=== PATIENT | female | born 1970 | race Caucasian/White ===

== ENCOUNTER 2019-11-09 01:02 | Outpatient (CLI) | payer BC, SELFPAY ==
[2019-11-09 18:02] LABS: SARS-CoV-2 RNA PCR Negative
== END 2019-11-09 01:03 | disposition home or self-care (01) ==
LOC: ANHCOVIDDT 01:02
PROVIDERS: PCP Family Medicine; Visit Provider Internal Medicine Gastroenterology
DX: Z01.812 Encounter for preprocedural laboratory examination (principal); Z20.828 Contact with and (suspected) exposure to other viral communicable diseases
CPT/HCPCS: 87635; C9803; U0003

== ENCOUNTER 2019-11-12 01:58 | Day surgery (SDC) | payer BC, SELFPAY ==
[2019-11-06 13:55] VITALS: BMI 36.9
[2019-11-12 09:48] VITALS: BP 113/91; PULSE 72; RESP 16; TEMP 36.9; O2SAT 100
--- NOTE | 2019-11-12 10:06 | WPDANESEPPF ---
Anes - Initial Pre Proc Eval Procedure: Operation Date: 11/12/19 11:00 Proposed Procedures p Screening Colonoscopy - Valeriy Lopez MD Date/Time: 11/12/19 10:06 Surgeon: Valeriy Lopez MD Pre Op Diagnosis: Neoplasm Screening Patient Data Age: 49 Gender: F Height: 5 ft 7 in Weight: 106.2 kg Last Vital Signs Temp 36.9 C 11/12/19 09:48 Pulse 72 11/12/19 09:48 Resp 16 11/12/19 09:48 BP 113/91 H 11/12/19 09:48 Pulse Ox 100 11/12/19 09:48 Allergies Allergy/AdvReac Type Severity Reaction Status Date / Time hydrocodone Allergy Severe swelling Verified 11/12/19 09:47 Home Medications Medication Instructions Recorded Confirmed Type aspirin 81 mg chewable tablet 81 mg PO DAILY 05/06/19 11/12/19 History cholecalciferol (vitamin D3) 50 2,000 unit PO DAILY 05/06/19 11/06/19 History mcg (2,000 unit) capsule magnesium 250 mg tablet 250 mg PO DAILY 05/06/19 11/06/19 History multivitamin 1 tablet PO DAILY 05/06/19 11/06/19 History eletriptan 40 mg tablet See Rx Instructions PO .COMPLEX #6 10/17/19 11/06/19 Rx tablet Patient hx anesthesia problems: none Family hx anesthesia problems: none PMFSH Past Medical History Medical History History of DVT (deep vein thrombosis) History of pulmonary embolism Migraine, unspecified, not intractable, without status migrainosus Wellness examination Family History Family History Father Family history of malignant neoplasm Mother Family history of lung cancer Other Family history of arthritis Hypertension Social History Social History Smoking status: Never smoker Alcohol intake: never Substance use: never Substance use type: does not use Living arrangements: with family Gender identity (if verbalized by the patient): Female Spiritual care concerns: No Anes - Eval Final PreProcedure Day of Procedure 11/12/19 10:06 Patient weight: obese Heart: regular rate and rhythm Lungs: clear to auscultation Airway: Mallampati scale class II Neurological: alert and oriented Last oral intake: >/= 8 hours ASA classification: III Emergent: no Anesthetic plan: proceed Anesthesia type and monitoring: general GIVS and standard monitoring Informed Consent: The patient's anesthetic plan and its attendant risks and benefits were discussed with the patient/family/POA. Questions were solicited and answers provided to the satisfaction of the patient/family/POA.
[2019-11-12] MEDS: LACTATED RINGERS 1,000 ML 150 ML IV CONT (10:16)
--- NOTE | 2019-11-12 10:27 | P.HP_ITS ---
History of Present Illness History of Present Illness Consent: Risks, benefits, and alternatives have been discussed and questions answered. Patient agrees to proceed with procedure. Chief complaint: Neoplasm Screening Narrative: Yolande Jimenez is a 49 year old female Here for colon cancer screenin [facility] Past Medical History Medical History History of DVT (deep vein thrombosis) History of pulmonary embolism Migraine, unspecified, not intractable, without status migrainosus Wellness examination Family History Family History Father Family history of malignant neoplasm Mother Family history of lung cancer Other Family history of arthritis Hypertension Social History Social History Smoking status: Never smoker Alcohol intake: never Substance use: never Substance use type: does not use Living arrangements: with family Gender identity (if verbalized by the patient): Female Spiritual care concerns: No Meds Home Medications and Allergies Home Medications Medication Instructions Recorded Confirmed Type aspirin 81 mg chewable tablet 81 mg PO DAILY 05/06/19 11/12/19 History cholecalciferol (vitamin D3) 50 2,000 unit PO DAILY 05/06/19 11/06/19 History mcg (2,000 unit) capsule magnesium 250 mg tablet 250 mg PO DAILY 05/06/19 11/06/19 History multivitamin 1 tablet PO DAILY 05/06/19 11/06/19 History eletriptan 40 mg tablet See Rx Instructions PO .COMPLEX #6 10/17/19 11/06/19 Rx tablet Allergies Allergy/AdvReac Type Severity Reaction Status Date / Time hydrocodone Allergy Severe swelling Verified 11/12/19 09:47 Vital Signs Vital Signs - 24 hr 11/12/19 09:48 Temperature 36.9 C Pulse Rate 72 Respiratory Rate 16 Blood Pressure 113/91 H Pulse Oximetry 100 Exam Resp: Auscultation: clear to auscultation bilaterally Cardio: Rate: regular rate Rhythm: regular rhythm GI: GI Palp: Yes Soft to palpation and No Tenderness to palpation present (GI) Assessment and Plan Assessment and plan (1) Colon cancer screening: Code(s): Z12.11 - Encounter for screening for malignant neoplasm of colon Status: Acute Assessment and Plan: Colonoscopy with possible biopsy or polypectomy or cautery or injection of substances.
[2019-11-12 10:50] VITALS: BP 111/73; PULSE 68; RESP 17; O2SAT 100
[2019-11-12 11:00] VITALS: BP 114/77; PULSE 61; RESP 20; O2SAT 100
[2019-11-12 11:12] VITALS: BP 114/66; PULSE 56; RESP 18; O2SAT 100
== END 2019-11-12 11:24 | disposition home or self-care (01) ==
PROVIDERS: PCP Family Medicine; Visit Provider Internal Medicine Gastroenterology
PROC: 0DJD8ZZ Inspection of Lower Intestinal Tract, Via Natural or Artificial Opening Endoscopic (ICD-10-PCS; CPT 45378; principal; 2019-11-12 11:00)
DX: Z12.11 Encounter for screening for malignant neoplasm of colon (principal); Z86.711 Personal history of pulmonary embolism; Z86.718 Personal history of other venous thrombosis and embolism; Z79.82 Long term (current) use of aspirin; E66.9 Obesity, unspecified; Z68.36 Body mass index [BMI] 36.0-36.9, adult
CPT/HCPCS: 45378; J2704; J7120

== ENCOUNTER 2022-11-14 09:24 | Emergency (ER) | payer BC, SELFPAY ==
[2022-11-14 09:28] VITALS: BP 148/97; PULSE 74; RESP 20; TEMP 36.8; O2SAT 99
--- NOTE | 2022-11-14 09:43 | ED.URI ---
HPI - URI/Sore Throat General Chief Complaint: Upper Respiratory Infection Stated Complaint: Congestion/Cough Time Seen by Provider: 11/14/22 09:43 Source: patient, RN notes reviewed and old records reviewed Mode of arrival: ambulatory Limitations: no limitations History of Present Illness HPI Narrative: 52 year old female who presents to express care with complaints of sore throat since with nasal congestion and sinus pressure. 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 Patient reports no know fevers has had some sweats, denies any shortness of breath or body aches. MD elicited complaint: cough and sore throat Pertinent past history: sinusitis Onset (ago): day(s) (4-5 days) Pain scale (0-10): 5 Able to tolerate fluids by mouth: Yes Treatments prior to arrival: other (Theraflu) Related Data Allergies Allergy/AdvReac Type Severity Reaction Status Date / Time hydrocodone Allergy Severe swelling Verified 11/14/22 09:48 oxycodone Allergy Severe Swelling Verified 11/14/22 09:49 Review of Systems Review of Systems: CONSTITUTIONAL: reports malaise, chills, positive for sweats, no known fever. EYES: Denies visual changes, redness, or discharge. ENT: Reports rhinorrhea, congestion, sinus pain,no otalgia,positive for sore throat. CARDIOVASCULAR: Denies chest pain, palpitations, or edema. RESPIRATORY: Reports cough.? Denies dyspnea. GASTROINTESTINAL: Denies abdominal pain, nausea, vomiting, diarrhea SKIN: Denies rash or itching. MUSCULOSKELETAL: Denies myalgia. NEUROLOGIC: Denies headache. All systems reviewed & are unremarkable except as noted in HPI and below PMFSH Past Medical History Medical History (Updated 11/15/22 @ 08:44 by Sully Merchant NP) Arthritis History of DVT (deep vein thrombosis) History of pulmonary embolism Migraine, unspecified, not intractable, without status migrainosus Wellness examination Surgical History Surgical History (Updated 11/15/22 @ 08:40 by Sully Merchant NP) H/O arthroscopy of left knee H/O tubal ligation History of hernia repair History of placement of ear tubes History of removal of both ovaries Previous section x2 Family History Family History Father Family history of malignant neoplasm Mother Family history of lung cancer Other Family history of arthritis Hypertension Social History Social History Smoking status: Never smoker Alcohol intake: never Substance use: never Substance use type: does not use Living arrangements: with family Gender identity (if verbalized by the patient): Female Spiritual care concerns: No Comments At time of signature, agree with nursing past medical, surgical, social and family history. There is no relevant family history pertinent to the presenting complaint Exam Narrative: GENERAL: Well-appearing, well-nourished, and in no acute distress. HEAD: Normocephalic EYES: PERRLA, conjunctivae clear ENT: Nares clear, turbinates edematous and erythematous, clear discharge, sinus pressure. Mucous membranes moist. TM pearly keller with dull light reflex bilaterally; no tragal tenderness. Oropharynx erythematous without lesions. Tonsils not enlarged and without exudate, no drooling, no hoarseness, no trismus, uvula midline.post nasal drainage noted. NECK: Supple. No lymphadenopathy CHEST: Clear to auscultation, breath sounds equal. No wheezing, rhonchi, rales, or stridor. No respiratory distress, speaks in full sentences.SAO2 99% on room air HEART: Regular rate and rhythm. No murmur heard. SKIN: Warm, dry, no rash. NEURO: Alert and oriented x3. PSYCH: Normal mood and affect Course Course Emergency Course: Patient is
== END 2022-11-14 10:18 | disposition home or self-care (01) ==
PROVIDERS: Emergency Provider Registered Nurse; PCP Family Medicine
DX: J06.9 Acute upper respiratory infection, unspecified (principal); Z20.822 Contact with and (suspected) exposure to COVID-19; M19.90 Unspecified osteoarthritis, unspecified site; Z86.718 Personal history of other venous thrombosis and embolism; Z86.711 Personal history of pulmonary embolism
CPT/HCPCS: 87426; 99213; C9803; G0463

== ENCOUNTER 2023-04-13 14:21 | Outpatient (CLI) | payer BC, SELFPAY ==
--- NOTE | ~2023-04-13 | MR_ITS ---
EXAMINATION: MR foot LT wo/w con DATE: 04/13/2023 15:34 INDICATION: Left foot metatarsalgia TECHNIQUE: Magnetic resonance imaging (MRI) of the left fore/mid foot was performed without intraveno us contrast. Sequences included axial, sagittal and coronal T1-weighted FSE, sagittal fluid sensitive FSE STIR, axial and coronal T2-weighted FS FSE, axial T1-weighted FS FSE and postcontrast axial, sag ittal and coronal T1-weighted FS FSE. COMPARISON: None FINDINGS: Bone alignment is normal. There is normal marrow signal throughout with no fracture, stress reaction or pathologic marrow replacing process. Mild osteoarthritis at the first metatarsophalangeal and mult iple tarsometatarsal and interphalangeal joints. There is a plantar plate tear at the base of the sec ond proximal phalanx with prominent associated enhancing pericapsular fibrosis. The collateral ligame nt complexes at the second metatarsophalangeal joint as well as remaining metatarsophalangeal and int erphalangeal joints remain normal. The flexor and extensor tendons are normal. No joint effusions, bu rsitis, tenosynovitis or other abnormal fluid collections. IMPRESSION: 1. 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 Reviewed, dictated and finalized at location A. T ATTENDANT OR ASSISTANT OPERATOR IMPRESSION: 1. Plantar plate tear and pericapsular fibrosis at the second metatarsophalange al joint.
== END 2023-04-13 14:22 | disposition home or self-care (01) ==
PROVIDERS: PCP Family Medicine; Visit Provider Podiatrist Foot & Ankle Surgery
DX: M77.42 Metatarsalgia, left foot (principal); M79.672 Pain in left foot
CPT/HCPCS: 73720; A9577

== ENCOUNTER 2024-02-19 00:46 | Day surgery (SDC) | payer BC, SELFPAY ==
[2024-02-12 15:40] VITALS: BMI 39.1
--- NOTE | 2024-02-12 15:49 | PC.NURSE ---
Report to the Outpatient Waiting Room, entrance under the green pavilion located off [facility], at time __0700am on date __02/19/24 . Planned Procedure Time: _0900am .? Time changes happen often and if your time is changed the preop area will call you the afternoon before. - You and your visitor will be asked to self-screen and do not enter if you have any COVID symptoms. Please call surgeon if you need to reschedule. - A mask is optional within the hospital at this time. Patients may have clear liquids (water, carbonated beverages, clear teas, apple juice) until 3 hours prior to surgery with a maximum of 20 ounces. - No food from midnight until time of surgery and no smoking. This includes no chewing gum, candy or mints.(0600am) Take only the following medications with a SIP of water on the morning of surgery: __None DO NOT STOP ANY OF YOUR OTHER PRESCRIPTION MEDICATIONS PRIOR TO SURGERY EXCEPT THE FOLLOWING Medications to discontinue per physician Check with Dr Concepcion regarding Aspirin and meloxicam instructions. Pt to call when we off phone. Date to take last dose per of Dr Concepcion Please no make-up, nail zimbabwean, hairspray, perfume, deodorant, or body powder the day of surgery.? No jewelry (including any body piercings) or valuables the day of surgery, leave them at home.? Please take a shower or bath the night before, or the morning of, surgery with an antibacterial soap.? Wear comfortable, loose fitting clothing.? - Jewelry must be removed prior to entering the operating room.? Rings and piercings that are not removed may be cut off. - The hospital will not accept responsibility for valuables.? - Please leave all valuables, including medications, at home the day of surgery. If you are going home after surgery, a licensed bottom hoop driver must drive you home.? - NO public transportation without another adult if you receive anesthesia. - We recommend that an adult stay with you for 24 hours following discharge. - We also recommend that you do not drive, make important decision, drink alcoholic beverages, or take any drugs that were not prescribed by your health care provider for at least 24 hours after your discharge time. Follow any additional instructions given to you from your surgeon. Telephone instructions given to __Patient and asked if any additional questions and then verbalized understanding. Patient advised to call surgeon office or pre surgery nurse liaison [phone] if any additional questions.
--- NOTE | 2024-02-19 07:35 | WPDHPUPDATE1 ---
History and Physical Update Update Date/Time: 02/19/24 07:35 History and Physical has been reviewed, including an updated exam of the patient. There are NO changes in the patient's condition. Risks, benefits, and alternatives have been discussed and questions answered. Patient agrees to proceed with procedure.
--- NOTE | 2024-02-19 07:35 | PM.HPGS ---
History of Present Illness History of Present Illness Consent: Risks, benefits, and alternatives have been discussed and questions answered. Patient agrees to proceed with procedure. Chief complaint: post menopausal bleeding Narrative: Yolande Jimenez is a 53 year old female with postmenopausal bleeding. It was recommended to undergo D&C hysteroscopy for further evaluation. Risks of infection, bleeding, perforation, and possible pathology are reviewed. Patient voices understanding and agrees to proceed. Review of Systems Review of Systems: not repeated day of surgery; patient states no changes in status PMFSH Past Medical History Medical History (Updated 02/19/24 @ 07:39 by Anna Concepcion MD) Arthritis History of DVT (deep vein thrombosis) History of pulmonary embolism Migraine, unspecified, not intractable, without status migrainosus Surgical History Surgical History (Updated 02/19/24 @ 07:38 by Anna Concepcion MD) Status post laparoscopic cholecystectomy Previous section x2 H/O tubal ligation History of removal of both ovaries History of placement of ear tubes H/O arthroscopy of left knee History of hernia repair Family History Family History Father Family history of malignant neoplasm Mother Family history of lung cancer Other Family history of arthritis Hypertension Social History Social History Smoking status: Never smoker Alcohol intake: never Substance use: never Substance use type: does not use Living arrangements: with family Gender identity (if verbalized by the patient): Female Spiritual care concerns: No Meds Home Medications and Allergies Home Medications ?Medication ?Instructions ?Recorded ?Confirmed ?Type eletriptan 40 mg tablet (Relpax) See Rx Instructions PO .COMPLEX #6 12/05/23 02/12/24 Rx tabs aspirin 81 mg chewable tablet 81 mg PO DAILY 02/12/24 02/12/24 History (Aspirin Childrens) meloxicam 15 mg tablet 15 mg PO DAILY 02/12/24 02/12/24 History Allergies Allergy/AdvReac Type Severity Reaction Status Date / Time hydrocodone Allergy Severe swelling Verified 02/12/24 15:36 oxycodone Allergy Severe Swelling Verified 02/12/24 15:36 Exam Const: General: healthy appearing and alert Orientation/consciousness: patient oriented x3 Resp: Effort & Inspection: normal respiratory effort : External Female Exam: normal external appearance Speculum Exam - Vagina: normal appearance of the vagina and normal vaginal discharge Speculum Exam - Cervix: normal appearance of the cervix Bimanual exam- vagina & uterus: uterine size normal and consistency normal Bimanual Exam- Adnexa, other: normal adnexae and No adnexal tenderness Neuro: General: patient oriented x3 Assessment and Plan Assessment and plan (1) Post-menopausal bleeding: Code(s): N95.0 - Postmenopausal bleeding Status: Acute Assessment and Plan: Been to proceed with D&C hysteroscopy
[2024-02-19 07:44] VITALS: BP 161/88; PULSE 76; RESP 14; TEMP 36.6; O2SAT 98
[2024-02-19] MEDS: ACETAMINOPHEN 500 MG TABLET 1000 MG PO (07:48)
[2024-02-19] MEDS: LACTATED RINGERS 1,000 ML 30 ML IV CONT (07:49)
--- NOTE | 2024-02-19 08:59 | P.PNAN_ITS ---
Anes - Initial Pre Proc Eval Procedure: Operation Date: 02/19/24 09:00 Proposed Procedures p Hysteroscopy, Dilation and Curettage - Anna Concepcion MD Date/Time: 02/19/24 08:59 Surgeon: Anna Concepcion MD Pre Op Diagnosis: post menopausal bleeding Patient Data Age: 53 Gender: F Height: 1.68 m Weight: 110.7 kg Last Vital Signs Temp 36.6 C 02/19/24 07:44 Pulse 76 02/19/24 07:44 Resp 14 02/19/24 07:44 BP 161/88 H 02/19/24 07:44 Pulse Ox 98 02/19/24 07:44 O2 Del Method Room Air 02/19/24 07:44 Allergies Allergy/AdvReac Type Severity Reaction Status Date / Time hydrocodone Allergy Severe swelling Verified 02/19/24 07:41 oxycodone Allergy Severe Swelling Verified 02/19/24 07:41 Home Medications ?Medication ?Instructions ?Recorded ?Confirmed ?Type eletriptan 40 mg tablet (Relpax) See Rx Instructions PO .COMPLEX #6 12/05/23 02/12/24 Rx tabs aspirin 81 mg chewable tablet 81 mg PO DAILY 02/12/24 02/19/24 History (Aspirin Childrens) meloxicam 15 mg tablet 15 mg PO DAILY 02/12/24 02/19/24 History Patient hx anesthesia problems: none Family hx anesthesia problems: none Results Review: All pre-operative results and documents have been reviewed as part of the pre- operative evaluation. [facility] Past Medical History Medical History Arthritis History of DVT (deep vein thrombosis) History of pulmonary embolism Migraine, unspecified, not intractable, without status migrainosus Surgical History Surgical History Status post laparoscopic cholecystectomy Previous section x2 H/O tubal ligation History of removal of both ovaries History of placement of ear tubes H/O arthroscopy of left knee History of hernia repair Family History Family History Father Family history of malignant neoplasm Mother Family history of lung cancer Other Family history of arthritis Hypertension Social History Social History Smoking status: Never smoker Alcohol intake: never Substance use: never Substance use type: does not use Living arrangements: with family Gender identity (if verbalized by the patient): Female Spiritual care concerns: No Anes - Eval Final PreProcedure Day of Procedure 02/19/24 08:59 Patient weight: obese Heart: regular rate and rhythm Lungs: clear to auscultation Airway: Mallampati scale class II Neurological: alert and oriented Last oral intake: 4 hours ASA classification: III Emergent: no Anesthetic plan: proceed Anesthesia type and monitoring: general GIVS and standard monitoring Results Review: All pre-operative results and documents have been reviewed as part of the pre- operative evaluation. Informed Consent: The patient's anesthetic plan and its attendant risks and benefits were discussed with the patient/family/POA. Questions were solicited and answers provided to the satisfaction of the patient/family/POA.
[2024-02-19] MEDS: KETOROLAC 30 MG/ML VIAL (*BKC) IV PUSH (09:21)
--- NOTE | 2024-02-19 09:25 | P.OP_ITS ---
Procedure Note - Detailed Date of Procedure 02/19/24 Pre-op Diagnosis post menopausal bleeding Post-op Diagnosis Same Procedure Performed D&C hysteroscopy with resection of polyps Surgeon Anna Concepcion MD Anesthesia MAC Findings Uterus sounds to 8cm. There were 2 polyps on the left uterine sidewall. The reminder of the endometrium appears atrophic. Description of Procedure The patient was taken to the operating room and placed under anesthesia in the dorsal lithotomy position. She was prepped and draped in the usual sterile fashion. Muldraugh speculum was placed in the vagina and the cervix was grasped on the anterior lip with a tenaculum. The cervical os is visible but not open at all. The Hegar dilator in sound will not pass the external os. The 11 blade scalpel was used to elisa-cross the os and mucus is released. The cervix is then able to be opened with the Hegar dilator. The uterus is sounded to 8cm. The diagnostic hysteroscope was placed and with the polyps noted the Aveta resection device is placed. Under direct visualization both polyps were removed in their entirety. The hysteroscope was then removed. The sharp OO curette is used to curette the endometrium until a good uterine cry was noted in all areas. Instruments are removed. Sponge, needle, and instrument counts correct per the OR staff. The patient was awakened from anesthesia and taken to recovery in stable condition. Estimated Blood Loss 5 Drains No Packing No Pathology Yes (Endometrial shavings and curettings) Complications No immediate complications Condition Stable Disposition PACU
[2024-02-19 09:28] VITALS: BP 102/57; PULSE 70; RESP 16; O2SAT 92
[2024-02-19 09:55] VITALS: BP 106/65; PULSE 61; O2SAT 93
[2024-02-19 10:25] VITALS: BP 112/77; PULSE 55
[2024-02-19 10:45] VITALS: BP 108/75; PULSE 60
--- OUTSIDE RECORDS SUMMARY | 2024-02-26 03:06 | XMS_ITS | Encounter Summary ---
Author Organization [facility] Address [address] [place] [address] Phone Care Team Providers Care Sewing Machine Tester Name Role Phone Wesley Douglass MD Primary Care Provider Reason for Visit * Reason Comments Red Eye right Encounter Details Date Type Department Care Team (Latest Contact Info) Description 05/18/2023 3:45 PM CDT [facility] - Sue [address] [place] [address] Sherri Alvarez, WATERPROOFING MIXER, VALIDATION ENGINEER [address] [place] [address] Conjunctivitis of right eye, unspecified conjunctivitis type (Primary Dx) Discharge Disposition: Discharged to home or Selfcare Social History Tobacco Use Types Packs/Day Years Used Date Smoking Tobacco: Never Smokeless Tobacco: Never Alcohol Use Standard Drinks/Week Comments Not Currently 0 (1 standard drink = 0.6 oz pur e alcohol) Comments No Sex and Gender Information Value Date Recorded Sex Assigned at Not on file Legal Sex Female 10:25 PM CDT Gender Identity Not on file Sexual Orientation Not on file documented as of this encounter Last Filed Vital Signs Vital Sign Reading Time Taken Comments Blood Pressure 140/86 05/18/2023 3:42 PM CDT Pulse 94 05/18/2023 3:42 PM CDT Temperature 36.8 ??C (98.3 ??F) 05/18/2023 3:42 PM CD T Respiratory Rate 18 05/18/2023 3:42 PM CDT Oxygen Saturation 99% 05/18/2023 3:42 PM CDT Inhaled Oxygen Concentration - - Weight - - Height - - Body Mass Index - - documented in this encounter Patient Instructions * Patient Instructions* Sherri Alvarez APRN, CNP - 05/18/2023 3:45 PM CDT [place] [facility] (Conjuntivitis) Home Treatments: Avoid touching the eye Warm compresses for crusting or drainage Strict hand washing to prevent spreading, this is very contagious No school or work until 24 hours after starting drops No contacts should be worn for 7-10 days Throw out previous set of contacts, start with new pair in 7-10 days Throw out any make up that may have come in contact with eye drainage Use drops as directed, do not stop early as infection may return Follow up: Go to ER for any vision changes Follow up with WESLEY DOUGLASS MD or prompt care if not improved or are worsening in 24-48 hours Follow up with WESLEY DOUGLASS MD if symptoms have not resolved in 1-2 weeks Patient and/or parent verbalized understanding of instructions. * Attachments The following attachments cannot be sent through Care Everywhere. * Bacterial Conjunctivitis Adult Iubz-up-Lwbc (Cuban) documented in this encounter Progress Notes * Michel Benavides - 05/18/2023 3:45 PM CDT Yolande complains of Right eye redness, pain, drainage, and sore throat. Pt states symptoms started yesterday and have worsened since onset. 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 Pt states she used visine for eyes, which have offered mild relief. Red Eye The current episode started yesterday. The onset was gradual. The problem occurs frequently. The problem has been gradually worsening. The problem is mild. Today's ROS * Sherri Alvarez APRN, CNP - 05/18/2023 3:45 PM CDT HPI: Yolande Jimenez is a 52 y.o. female in the [facility] care today for right eye redness, drainage, andmattering. She states it started yesterday. She also reports some nasal congestion and a sore throat that started last week. Severity of symptoms is mild Symptoms have not changed Patient is currently taking over the counter visine for the symptoms. Smoker: No No pertinent Past, family, or social history was noted There is no problem list on file for this patient. ROS: Review of Systems Constitutional: Negative for chills and fever. HENT: Positive for congestion and sore throat. Negative for ear pain, postnasal drip, rhinorrhea, sinus pressure and sinus pain. Eyes: Positive for discharge, redness and itching. Negative for pain and visual disturbance. Respiratory: Negative for cough and shortness of breath. Cardiovascular: Negative for chest pain and palpitations. Gastrointestinal: Negative for abdominal pain and vomiting. Genitourinary: Negative for dysuria and hematuria. Musculoskeletal: Negative for arthralgias and back pain. Skin: Negative for color change and rash. Neurological: Negative for seizures and syncope. All other systems reviewed and are negative. PE: BP 140/86 (BP Location: Right Arm, BP Position: Sitting, BP Cuff Size: Large) Pulse 94 Temp 98.3 ??F (36.8 ??C) (Temporal) Resp 18 SpO2 99% Physical Exam Vitals and nursing note reviewed. Constitutional: Appearance: Normal appearance. She is normal weight. HENT: Right Ear: Tympanic membrane, ear canal and external ear normal. Left Ear: Tympanic membrane, ear canal and external ear normal. Nose: Nose normal. No congestion or rhinorrhea. Mouth/Throat: Mouth: Mucous membranes are moist. Pharynx: Oropharynx is clear. No oropharyngeal exudate or posterior oropharyngeal erythema. Eyes: Comments: Erythema noted the right conjunctiva. Cardiovascular: Rate and Rhythm: Normal rate and regular rhythm. Pulses: Normal pulses. Heart sounds: Normal heart sounds. Pulmonary: Effort: Pulmonary effort is normal. No respiratory distress. Breath sounds: Normal breath sounds. Musculoskeletal: Cervical back: Neck supple. Lymphadenopathy: Cervical: No cervical adenopathy. Skin: General: Skin is warm and dry. Neurological: Mental Status: She is alert. ASSESSMENT/PLAN: Diagnoses and all orders for this visit: Conjunctivitis of right eye, unspecified conjunctivitis type Other orders - EPINEPHrine (EpiPen 2-Ramon) 0.3 MG/0.3ML Solution Auto-injector; inject (0.3MG) by INTRAMUSCULAR route once as needed for anaphylaxis - ofloxacin (OCUFLOX) 0.3 % Solution; Place 1 Drop in affected eye(s) 4 times daily. Patient Instructions [place] [facility] (Conjuntivitis) Home Treatments: Avoid touching the eye Warm compresses for crusting or drainage Strict hand washing to prevent spreading, this is very contagious No school or work until 24 hours after starting drops No contacts should be worn for 7-10 days Throw out previous set of contacts, start with new pair in 7-10 days Throw out any make up that may have come in contact with eye drainage Use drops as directed, do not stop early as infection may return Follow up: Go to ER for any vision changes Follow up with WESLEY DOUGLASS MD or prompt care if not improved or are worsening in 24-48 hours Follow up with WESLEY DOUGLASS MD if symptoms have not resolved in 1-2 weeks Patient and/or parent verbalized understanding of instructions. Chief complaint and all history documented by ancillary staff were reviewed and verified, with additions or corrections, as appropriate. documented in this encounter Plan of Treatment Not on file documented as of this encounter Visit Diagnoses Diagnosis Conjunctivitis of right eye, unspecified conjunctivitis type- Primary documented in this encounter Care Teams Sewing Machine Tester Relationship Specialty Start Date End Date Wesley Douglass MD [address] [place] [address] PCP - General Family Medicine 12/31/21 documented as of this encounter
--- OUTSIDE RECORDS SUMMARY | 2024-02-26 03:06 | XMS_ITS | Encounter Summary ---
Author Organization [facility] [employer] Care Team Providers Care Tail Dogger Name Role Phone Wesley Douglass MD Primary Care Provider Encounter Details Date Type Department Care Team (Latest Contact Info) Description 05/18/2023 Travel Social History Tobacco Use Types Packs/Day Years [...] on file documented as of this encounter Plan of Treatment Not on file documented as of this encounter Visit Diagnoses Not on filedocumented in this encounter Care Teams Tail Dogger Relationship Specialty Start Date End Date Wesley Douglass MD [address] [facility] [address] [place] [address] PCP - General Family Medicine 12/31/21 documented as of this encounter
--- OUTSIDE RECORDS SUMMARY | 2024-02-26 03:06 | XMS_ITS | Encounter Summary ---
Author Organization [facility] Address [address] [place] [address] Phone Care Team Providers Care Communication Instructor Name Role Phone Wesley Douglass MD Primary Care Provider Reason for Visit * Reason Comments Sinus Problem X2 months. Encounter Details Date Type Department Care Team (Latest Contact Info) Description 12/02/2023 3:05 PM CDT [facility] [address] [place] [id number] Orlando Dyer, KIKI [address] [id number] Acute maxillary sinusitis, recurrence not specified (Primary Dx) Discharge Disposition: Discharged to home or Selfcare Social History Tobacco Use Types Packs/Day Years Used Date Smoking Tobacco: Never Smokeless Tobacco: Never Tobacco Cessation:Counseling Given: Yes Alcohol Use Standard Drinks/Week Comments Not Currently [...] Sign Reading Time Taken Comments Blood Pressure 118/82 12/02/2023 3:08 PM CDT Pulse 67 12/02/2023 3:08 PM CDT Temperature 36.9 ??C (98.5 ??F) 12/02/2023 3:08 PM CD T Respiratory Rate 12 12/02/2023 3:08 PM CDT Oxygen Saturation 97% 12/02/2023 3:08 PM CDT Inhaled Oxygen Concentration - - Weight - - Height - - Body Mass Index - - documented in this encounter Patient Instructions * Patient Instructions* Orlando Dyer PAC - 12/02/2023 3:05 PM CDT Increase fluids, Tylenol and Motrin as needed Patient given sinusitis discharge instructions Rx for Augmentin sent to pharmacy See your primary care provider in 3-4 days if not better * Attachments The following attachments cannot be sent through Care Everywhere. * Sinusitis Adult Nleh-iq-Ldjt (Tamazight) documented in this encounter Progress Notes * Barby Donato CMA - 12/02/2023 3:05 PM CDT Sinus Problem X2 months. * Orlando Dyer PAC - 12/02/2023 3:05 PM CDT HPI: Yolande Jimenez is a 53 y.o. female in the [facility] care today for two-month history of fatigue, congestion, sinus pressure, cough with green sputum and headache that has gotten worse since today, she has been on Zyrtec and Flonase with minimal relief, she has been vaccinated for COVID, no known COVID exposure There is no problem list on file for this patient. Available past, family, surgical, and social history reviewed and updated in the chart. ROS: Review of Systems Constitutional: Positive for fatigue. Negative for chills and fever. HENT: Positive for congestion and sinus pressure. Negative for ear pain and sore throat. Eyes: Negative for pain and visual disturbance. Respiratory: Positive for cough. Negative for shortness of breath. Cardiovascular: Negative for chest pain and palpitations. Gastrointestinal: Negative for abdominal pain and vomiting. Genitourinary: Negative for dysuria and hematuria. Musculoskeletal: Negative for arthralgias and back pain. Skin: Negative for color change and rash. Neurological: Positive for headaches. Negative for seizures and syncope. All other systems reviewed and are negative. PE: BP 118/82 Pulse 67 Temp 98.5 ??F (36.9 ??C) (Temporal) Resp 12 SpO2 97% Physical Exam Vitals and nursing note reviewed. Constitutional: General: She is not in acute distress. Appearance: She is well-developed. She is not ill-appearing. HENT: Head: Normocephalic and atraumatic. Right Ear: Tympanic membrane, ear canal and external ear normal. Left Ear: Tympanic membrane, ear canal and external ear normal. Nose: Nose normal. Mouth/Throat: Mouth: Mucous membranes are moist. Pharynx: Posterior oropharyngeal erythema present. Eyes: Conjunctiva/sclera: Conjunctivae normal. Cardiovascular: Rate and Rhythm: Normal rate and regular rhythm. Heart sounds: No murmur heard. Pulmonary: Effort: Pulmonary effort is normal. No respiratory distress. Breath sounds: Normal breath sounds. Abdominal: Palpations: Abdomen is soft. Tenderness: There is no abdominal tenderness. Musculoskeletal: General: No swelling. Cervical back: Neck supple. Skin: General: Skin is warm and dry. Capillary Refill: Capillary refill takes less than 2 seconds. Neurological: Mental Status: She is alert. Psychiatric: Mood and Affect: Mood normal. ASSESSMENT/PLAN: Diagnoses and all orders for this visit: Acute maxillary sinusitis, recurrence not specified - amoxicillin-clavulanate (AUGMENTIN) 875-125 MG Tablet; Take 1 Tablet by mouth 2 times daily for 10 days. Patient Instructions Increase fluids, Tylenol and Motrin as needed Patient given sinusitis discharge instructions Rx for Augmentin sent to pharmacy See your primary care provider in 3-4 days if not better Chief complaint and all history documented by ancillary staff were reviewed and verified, with additions or corrections, as appropriate. documented in this encounter Plan of Treatment Not on file documented as of this encounter Visit Diagnoses Diagnosis Acute maxillary sinusitis, recurrence not specified- Primary documented in this encounter Care Teams Communication Instructor Relationship Specialty Start Date End Date Wesley Douglass MD [address] [facility] [address] [place] [address] PCP - General Family Medicine 12/31/21 documented as of this encounter
--- OUTSIDE RECORDS SUMMARY | 2024-02-26 03:06 | XMS_ITS | Encounter Summary ---
Author Organization [facility] Address [address] [place] [address] Care Team Providers Care Dry Press Operator Name Role Phone Wesley Douglass MD Primary Care Provider Reason for Referral * Diagnostic Imaging (Routine) - Closed Specialty Diagnoses / Procedures Referred By Contac t Referred To Contact Diagnoses Asymptomatic menopausal state Procedures Dexa Axial Skeleton Bone Density 1 or 2 Site Anna Concepcion MD [address] [place] [address] Phone: tel: fax: [address] [phone] Referral ID Status Reason Start Date Expiration Date Visits Re quested Visits Authorized [id number] Closed 10/27/2023 11/25/2024 1 1 Reason for Visit * Diagnostic Imaging (Routine) - Closed Specialty Diagnoses / Procedures Referred By Contac t Referred To Contact Diagnoses Asymptomatic menopausal state Procedures Dexa Axial Skeleton Bone Density 1 or 2 Site Anna Concepcion MD [address] [place] [address] Phone: tel: fax: [address] [phone] Referral ID Status Reason Start Date Expiration Date Visits Re quested Visits Authorized [id number] Closed 10/27/2023 11/25/2024 1 1 Encounter Details Date Type Department Care Team (Latest Contact Info) Description 11/17/2023 2:46 PM CDT - 11/17/2023 11:59 PM CDT Hospital Encounter [facility] [address] [place] [address] Asymptomatic menopausal state Discharge Disposition: Discharge to home or self care Social History Tobacco Use Types Packs/Day Years Used Date Smoking Tobacco: Never Assessed Alcohol Use Standard Drinks/Week Comments No 0 (1 standard drink = 0.6 oz pur e alcohol) Comments No Sex and Gender Information Value Date Recorded Sex Assigned at Not on file 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 Gender Identity Not on file Sexual Orientation Not on file documented as of this encounter Medications at Time of Discharge acetaminophen (TYLENOL) 325 mg tablet Take as directed 0 0 07/14/2008 acetaminophen-co deine (TYLENOL with CODEINE #3) 300-30 mg per tablet take 1 - 2 by oral route every 4 - 6 hours as needed 30 0 06/15/2012 amoxicillin (AMOXIL) 875 mg tablet take 1 tablet (875MG) by oral route every 12 hours 20 0 06/01/2011 aspirin (ASPIRIN CHILDRENS) 81 mg chewable tablet chew 1 tablet (81MG) by oral route every day 0 01/10/2012 docusate sodium (COLACE) 50 mg capsule take 1 capsule (50MG) by oral route 2 times every day 30 0 03/14/2012 drospirenone-eth inyl estradiol (PIO, 28,) 3-0.02 mg per tablet 0 0 07/14/2008 EPINEPHrine (EPIPEN) 0.3 mg/0.3 mL injection syringe inject (0.3MG) by INTRAMUSCULAR route once as needed for anaphylaxis 2 0 10/01/2009 ibuprofen (MOTRIN) 400 mg tablet 400 mg. 0 0 07/14/2008 lansoprazole (PREVACID) 30 mg capsule 30 mg. 0 0 07/14/2008 multivitamin tablet tablet Take as directed 0 0 07/14/2008 SUMAtriptan (IMITREX) 100 mg tablet TAKE ONE BY MOUTH ONE TIME PER DAY NEEDED 6 0 07/07/2008 SUMAtriptan (IMITREX) 5 mg/actuation nasal spray 5 mg. 0 0 07/14/2008 documented as of this encounter Discharge Disposition Disposition Code Departure Means Destination Discharge to home or self care documented in this encounter Plan of Treatment Not on file documented as of this encounter Procedures Procedure Name Priority Date/Time Associated Diagnosis Comments DEXA AXIAL SKELETON BONE DENSITY 1 OR MORE SITES Schedule Routine, Read Routine (OP Routine) 11/17/2023 3:11 PM CDT Asymptomatic menopausal state documented in this encounter Results * Dexa Axial Skeleton Bone Density 1 or 2 Site (11/17/2023 3:11 PM CDT) Anatomical Region Laterality Modality Body N/A Other 11/18/2023 8:40 AM CDT Narrative 11/18/2023 8:42 AM CDT EXAM DESCRIPTION: DEXA AXIAL SKELETON BONE DENSITY 1 OR MORE SITES REASON FOR STUDY: 53 y/o ?? year old ??F ??with given history of: ??Z78.0 ?? screening ? 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 Maximum height: ??67 ??inches ? Weight: ??243 ??pounds Risk factors: ??Postmenopausal, parental hip fracture COMPARISON: None available FINDINGS: AP LUMBAR SPINE L1-L4: Total BMD is 1.002 g/cm2 T-score is -0.4 LEFT HIP: Total BMD is 1.040 g/cm2 T-score is 0.8 Femoral neck BMD is 0.786 g/cm2 T-score is -0.6 ?? FRAX: FRAX not reported due to T-scores of hip, femoral neck and/or spine being at or above -1.0 (Normal). IMPRESSION: Normal bone mass. REFERENCE: Bone mineral density: T-Score: ?Normal (T-score above or = -1.0) ?Low bone mass ??(T-score between -1.0 and -2.5) replaces the previously used term osteopenia ?Osteoporosis (T-score = or below -2.5) Z-Score: ? Within the expected range for age (Z-score above -2.0) ? Below the expected range for age (Z-score is -2.0 or below) Please see below follow up recommendations. Medical evaluation for secondary causes of low bone mineral density may be appropriate. FRAX is a World Health Organization validated fracture risk assessment tool that calculates a person's 10 year probability of a major osteoporosis related fracture and hip fracture. ??According to the National Osteoporosis Foundation guidelines, postmenopausal women and men age 50 or older with low bone mass and a 10 year probability of a major osteoporosis related fracture = or greater than 20% or a 10 year probability of a hip fracture = or greater than 3% should be considered for pharmacological treatment for the prevention of osteoporosis. For further information, including treatment recommendations, please refer to the 2019 ISCD Official Positions (http://www.iscd.org) and the NOF's Clinician's Guide to Prevention and Treatment of Osteoporosis (http://www.nof.org/professionals/clinical-guidelines) THIS IS AN ELECTRONICALLY VERIFIED FINAL REPORT 11/18/2023 8:42 AM - Electronically signed by ??Marko Hayes M.D. 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 IMPRESSION: Normal bone mass. REFERENCE: Bone mineral density: T-Score: Normal (T-score above or = -1.0) Low bone mass (T-score between -1.0 and -2.5) replaces thepreviously used term osteopenia Osteoporosis (T-score = or below -2.5) Z-Score: Within the expected range for age (Z-score above -2.0) Below the expected range for age (Z-score is -2.0 or below) Please see below follow up recommendations. Medical evaluation forsecondary causes of low bone mineral density may be appropriate. FRAX is a World Health Organization validated fracture risk assessmenttool that calculates a person's 10 year probability of a major osteoporosisrelated fracture and hip fracture. According to the National OsteoporosisFoundation guidelines, postmenopausal women and men age 50 or older with low bonemass and a 10 year probability of a major osteoporosis related fracture = or greater than 20% or a 10 year probability of a hip fracture = or greaterthan 3% should be considered for pharmacological treatment for the preventionof osteoporosis. For further information, including treatment recommendations, please referto the 2019 ISCD Official Positions (http://www.iscd.org) and the NOF's Clinician's Guide to Prevention and Treatment of Osteoporosis (http://www.nof.org/professionals/clinical-guidelines) THIS IS AN ELECTRONICALLY VERIFIED FINAL REPORT 11/18/2023 8:42 AM - Electronically signed by Marko Hayes M.D. MF: [email or web address] Report ID: [id number] Reading Location: [place] [address] [place] Anna Concepcion MD IMG DXA PROCEDURES Final Result documented in this encounter Visit Diagnoses Diagnosis Asymptomatic menopausal state documented in this encounter Care Teams Dry Press Operator Relationship Specialty Start Date End Date Wesley Douglass MD [address] [address] PCP - General 01/12/21 documented as of this encounter
--- OUTSIDE RECORDS SUMMARY | 2024-02-26 03:06 | XMS_ITS | Encounter Summary ---
Author Organization [facility] Address [address] [place] [address] Phone Care Team Providers Care Betting Clerk Name Role Phone Wesley Douglass MD Primary Care Provider Reason for Visit * Reason Comments Cough Fever Nasal Congestion Encounter Details Date Type Department Care Team (Latest Contact Info) Description 03/14/2023 5:00 PM TAX TECHNICIAN Urgent Care Visit [facility] - Sue [address] [place] [address] Sherri Alvarez, CAMOUFLAGE SPECIALIST, JEWISH THOUGHT PROFESSOR [address] [place] [address] Acute non-recurrent pansinusitis (Primary Dx); Cough in adult patient Discharge Disposition: Discharged to home or Selfcare [...] Sign Reading Time Taken Comments Blood Pressure 120/80 03/14/2023 4:47 PM TAX TECHNICIAN Pulse 98 03/14/2023 4:47 PM TAX TECHNICIAN Temperature 37.6 ??C (99.7 ??F) 03/14/2023 4:47 PM CS T Respiratory Rate 18 03/14/2023 4:47 PM TAX TECHNICIAN Oxygen Saturation 96% 03/14/2023 4:47 PM TAX TECHNICIAN Inhaled Oxygen Concentration - - Weight 106.6 kg (235 lb) 03/14/2023 4:47 PM TAX TECHNICIAN Height - - Body Mass Index - - documented in this encounter Patient Instructions * Patient Instructions* Sherri Alvarez APRN, BERNARDINO - 03/14/2023 5:00 PM TAX TECHNICIAN Images from the original note were not included. Flonase as discussed OTC decongestants per package directions as discussed. Use Coricidin HBP if you have high blood pressure. Antibiotics as discussed Saline rinses as desired. F/u with pcp or prompt care as needed Sinusitis, Adult Sinusitis is inflammation of your sinuses. Sinuses are hollow spaces in the bones around your face.Your sinuses are located: Around your eyes. In the middle of your forehead. Behind your nose. In your cheekbones. Mucus normally drains out of your sinuses. When your nasal tissues become inflamed or swollen, mucus can become trapped or blocked. This allows bacteria, viruses, and fungi to grow, which leads to infection. Most infections of the sinuses are caused by a virus. Sinusitis can develop quickly. It can last for up to 4 weeks (acute) or for more than 12 weeks (chronic). Sinusitis often develops after a cold. What are the causes? This condition is caused by anything that creates swelling in the sinuses or stops mucus from draining. This includes: Allergies. Asthma. Infection from bacteria or viruses. Deformities or blockages in your nose or sinuses. Abnormal growths in the nose (nasal polyps). Pollutants, such as chemicals or irritants in the air. Infection from fungi (rare). What increases the risk? You are more likely to develop this condition if you: Have a weak body defense system (immune system). Do a lot of swimming or diving. Overuse nasal sprays. Smoke. What are the signs or symptoms? The main symptoms of this condition are pain and a feeling of pressure around the affected sinuses.Other symptoms include: Stuffy nose or congestion. Thick drainage from your nose. Swelling and warmth over the affected sinuses. Headache. Upper toothache. A cough that may get worse at night. Extra mucus that collects in the throat or the back of the nose (postnasal drip). Decreased sense of smell and taste. Fatigue. A fever. Sore throat. Bad breath. How is this diagnosed? This condition is diagnosed based on: Your symptoms. Your medical history. A physical exam. Tests to find out if your condition is acute or chronic. This may include: Checking your nose for nasal polyps. Viewing your sinuses using a device that has a light (endoscope). Testing for allergies or bacteria. Imaging tests, such as an MRI or CT scan. In rare cases, a bone biopsy may be done to rule out more serious types of fungal sinus disease. How is this treated? Treatment for sinusitis depends on the cause and whether your condition is chronic or acute. If caused by a virus, your symptoms should go away on their own within 10 days. You may be given medicines to relieve symptoms. They include: Medicines that shrink swollen nasal passages (topical intranasal decongestants). Medicines that treat allergies (antihistamines). A spray that eases inflammation of the nostrils (topical intranasal corticosteroids). Rinses that help get rid of thick mucus in your nose (nasal saline washes). If caused by bacteria, your health care provider may recommend waiting to see if your symptoms improve. Most bacterial infections will get better without antibiotic medicine. You may be given antibiotics if you have: A severe infection. A weak immune system. If caused by narrow nasal passages or nasal polyps, you may need to have surgery. Follow these instructions at home: Medicines Take, use, or apply [id number] and prescription medicines only as told by your health care provider. These may include nasal sprays. If you were prescribed an antibiotic medicine, take it as told by your health care provider. Do notstop taking the antibiotic even if you start to feel better. Hydrate and humidify Drink enough fluid to keep your urine pale yellow. Staying hydrated will help to thin your mucus. Use a cool mist humidifier to keep the humidity level in your home above 50%. Inhale steam for 10-15 minutes, 3-4 times a day, or as told by your health care provider. You can do this in the bathroom while a hot shower is running. Limit your exposure to cool or dry air. Rest Rest as much as possible. Sleep with your head raised (elevated). Make sure you get enough sleep each night. General instructions Apply a warm, moist washcloth to your face 3-4 times a day or as told by your health care provider.This will help with discomfort. Wash your hands often with soap and water to reduce your exposure to germs. If soap and water are not available, use hand aluminum boats assembler. Do not smoke. Avoid being around people who are smoking (secondhand smoke). Keep all follow-up visits as told by your health care provider. This is important. Contact a health care provider if: You have a fever. Your symptoms get worse. Your symptoms do not improve within 10 days. Get help right away if: You have a severe headache. You have persistent vomiting. You have severe pain or swelling around your face or eyes. You have vision problems. You develop confusion. Your neck is stiff. You have trouble breathing. Summary Sinusitis is soreness and inflammation of your sinuses. Sinuses are hollow spaces in the bones around your face. This condition is caused by nasal tissues that become inflamed or swollen. The swelling traps or blocks the flow of mucus. This allows bacteria, viruses, and fungi to grow, which leads to infection. If you were prescribed an antibiotic medicine, take it as told by your health care provider. Do notstop taking the antibiotic even if you start to feel better. Keep all follow-up visits as told by your health care provider. This is important. This information is not intended to replace advice given to you by your health care provider. Make sure you discuss any questions you have with your health care provider. Document Revised: 07/16/2018 Document Reviewed: 07/16/2018 [employer] Patient Education ?? 2021 [employer]. TECHNICIAN documented in this encounter Progress Notes * Yolande Cloud RMA - 03/14/2023 5:00 PM CST Yolande Jimenez complains of Pt is being seen for nasal congestion, cough, and fever for a week Today's Review of Systems Constitutional: Positive for fever. HENT: Positive for congestion. Respiratory: Positive for cough. TECHNICIAN * Yolande Cloud RMA - 03/14/2023 5:00 PM CST Per order of Sherri Alvarez APRN, BERNARDINO nasal swab collected for POCT influenza. Patient tolerated well. TECHNICIAN * Sherri lAvarez APRN, CNP - 03/14/2023 5:00 PM CST Images from the original note were not included. HPI: Yolande Jimenez is a 52 y.o. female in the [facility] care today for a productive cough, nasal congestion , and a fever ( t max 99.8). She has has a runny nose, sore throat, headache, sinus pain/ pressure, and ear pressure. She denies shortness of breath and wheezing. She states the symptoms have waxed and waned since sometime in January. She was given steroids in January and it helped some. Severity of symptoms is moderate Symptoms have slightly improved Patient is currently taking over the counter mucinex, sudafed, and nyquil for the symptoms. Smoker: No No pertinent Past, family, or social history was noted There is no problem list on file for this patient. ROS: Review of Systems Constitutional: Positive for chills and fever. HENT: Positive for congestion, rhinorrhea, sinus pressure, sinus pain and sore throat. Negative forear pain and postnasal drip. Eyes: Negative for pain and visual disturbance. Respiratory: Positive for cough. Negative for shortness of breath and wheezing. Cardiovascular: Negative for chest pain and palpitations. Gastrointestinal: Negative for abdominal pain and vomiting. Genitourinary: Negative for dysuria and hematuria. Musculoskeletal: Negative for arthralgias and back pain. Skin: Negative for color change and rash. Neurological: Positive for headaches. Negative for seizures and syncope. All other systems reviewed and are negative. PE: BP 120/80 (BP Location: Right Arm, BP Position: Sitting, BP Cuff Size: Large) Pulse 98 Temp 99.7 ??F (37.6 ??C) (Temporal) Resp 18 Wt 235 lb (106.6 kg) SpO2 96% Yes Physical Exam Vitals and nursing note reviewed. Constitutional: Appearance: Normal appearance. She is normal weight. HENT: Right Ear: Tympanic membrane, ear canal and external ear normal. Left Ear: Tympanic membrane, ear canal and external ear normal. Nose: Congestion present. Right Sinus: Maxillary sinus tenderness and frontal sinus tenderness present. Left Sinus: Maxillary sinus tenderness and frontal sinus tenderness present. Mouth/Throat: Mouth: Mucous membranes are moist. Pharynx: Oropharynx is clear. No oropharyngeal exudate or posterior oropharyngeal erythema. Eyes: Conjunctiva/sclera: Conjunctivae normal. Cardiovascular: Rate and [...] and all orders for this visit: Acute non-recurrent pansinusitis Cough in adult patient - POC INFLUENZA A AND B BY MOLECULAR Other orders - amoxicillin-clavulanate (AUGMENTIN) 875-125 MG Tablet; Take 1 Tablet by mouth 2 times daily for 10 days. Patient Instructions Flonase as discussed OTC decongestants per package directions as discussed. Use Coricidin HBP if you have high blood pressure. Antibiotics as discussed Saline rinses as desired. F/u with pcp or prompt care as needed Sinusitis, Adult Sinusitis is inflammation of your sinuses. Sinuses are hollow spaces in the bones around your face.Your sinuses are located: ?? Around your eyes. ?? In the middle of your forehead. ?? Behind your nose. ?? In your cheekbones. Mucus normally drains out of your sinuses. When your nasal tissues become inflamed or swollen, mucus can become trapped or blocked. This allows bacteria, viruses, and fungi to grow, which leads to infection. Most infections of the sinuses are caused by a virus. Sinusitis can develop quickly. It can last for up to 4 weeks (acute) or for more than 12 weeks (chronic). Sinusitis often develops after a cold. What are the causes? This condition is caused by anything that creates swelling in the sinuses or stops mucus from draining. This includes: ?? Allergies. ?? Asthma. ?? Infection from bacteria or viruses. ?? Deformities or blockages in your nose or sinuses. ?? Abnormal growths in the nose (nasal polyps). ?? Pollutants, such as chemicals or irritants in the air. ?? Infection from fungi (rare). What increases the risk? You are more likely to develop this condition if you: ?? Have a weak body defense system (immune system). ?? Do a lot of swimming or diving. ?? Overuse nasal sprays. ?? Smoke. What are the signs or symptoms? The main symptoms of this condition are pain and a feeling of pressure around the affected sinuses.Other symptoms include: ?? Stuffy nose or congestion. ?? Thick drainage from your nose. ?? Swelling and warmth over the affected sinuses. ?? Headache. ?? Upper toothache. ?? A cough that may get worse at night. ?? Extra mucus that collects in the throat or the back of the nose (postnasal drip). ?? Decreased sense of smell and taste. ?? Fatigue. ?? A fever. ?? Sore throat. ?? Bad breath. How is this diagnosed? This condition is diagnosed based on: 1. Your symptoms. 2. Your medical history. 3. A physical exam. 4. Tests to find out if your condition is acute or chronic. This may include: ? Checking your nose for nasal polyps. ? Viewing your sinuses using a device that has a light (endoscope). ? Testing for allergies or bacteria. ? Imaging tests, such as an MRI or CT scan. In rare cases, a bone biopsy may be done to rule out more serious types of fungal sinus disease. How is this treated? Treatment for sinusitis depends on the cause and whether your condition is chronic or acute. 1. If caused by a virus, your symptoms should go away on their own within 10 days. You may be givenmedicines to relieve symptoms. They include: ? Medicines that shrink swollen nasal passages (topical intranasal decongestants). ? Medicines that treat allergies (antihistamines). ? A spray that eases inflammation of the nostrils (topical intranasal corticosteroids). ? Rinses that help get rid of thick mucus in your nose (nasal saline washes). 2. If caused by bacteria, your health care provider may recommend waiting to see if your symptoms improve. Most bacterial infections will get better without antibiotic medicine. You may be given antibiotics if you have: ? A severe infection. ? A weak immune system. 3. If caused by narrow nasal passages or nasal polyps, you may need to have surgery. Follow these instructions at home: Medicines ?? Take, use, or apply [id number]-[id number] and prescription medicines only as told by your health careprovider. These may include nasal sprays. ?? If you were prescribed an antibiotic medicine, take it as told by your health care provider. Do not stop taking the antibiotic even if you start to feel better. Hydrate and humidify ?? Drink enough fluid to keep your urine pale yellow. Staying hydrated will help to thin your mucus. ?? Use a cool mist humidifier to keep the humidity level in your home above 50%. ?? Inhale steam for 10-15 minutes, 3-4 times a day, or as told by your health care provider. You can do this in the bathroom while a hot shower is running. ?? Limit your exposure to cool or dry air. Rest ?? Rest as much as possible. ?? Sleep with your head raised (elevated). ?? Make sure you get enough sleep each night. General instructions ?? Apply a warm, moist washcloth to your face 3-4 times a day or as told by your health care provider. This will help with discomfort. ?? Wash your hands often with soap and water to reduce your exposure to germs. If soap and water are not available, use hand aluminum boats assembler. ?? Do not smoke. Avoid being around people who are smoking (secondhand smoke). ?? Keep all follow-up visits as told by your health care provider. This is important. Contact a health care provider if: ?? You have a fever. ?? Your symptoms get worse. ?? Your symptoms do not improve within 10 days. Get help right away if: ?? You have a severe headache. ?? You have persistent vomiting. ?? You have severe pain or swelling around your face or eyes. ?? You have vision problems. ?? You develop confusion. ?? Your neck is stiff. ?? You have trouble breathing. Summary ?? Sinusitis is soreness and inflammation of your sinuses. Sinuses are hollow spaces in the bones around your face. ?? This condition is caused by nasal tissues that become inflamed or swollen. The swelling traps orblocks the flow of mucus. This allows bacteria, viruses, and fungi to grow, which leads to infection. ?? If you were prescribed an antibiotic medicine, take it as told by your health care provider. Do not stop taking the antibiotic even if you start to feel better. ?? Keep all follow-up visits as told by your health care provider. This is important. This information is not intended to replace advice given to you by your health care provider. Make sure you discuss any questions you have with your health care provider. Document Revised: 07/16/2018 Document Reviewed: 07/16/2018 [employer] Patient Education ?? 2021 [employer]. Chief complaint and all history documented by ancillary staff were reviewed and verified, with additions or corrections, as appropriate. TECHNICIAN documented in this encounter Plan of Treatment Not on file documented as of this encounter Procedures Procedure Name Priority Date/Time Associated Diagnosis Comments POC INFLUENZA A AND B BY MOLECULAR Routine 03/14/2023 4:53 PM TAX TECHNICIAN Cough in adult patient documented in this encounter Results * POC INFLUENZA A AND B BY MOLECULAR (03/14/2023 4:53 PM TAX TECHNICIAN) INFLUENZA A RNA Negative Negative, Invalid INFLUENZA B RNA Negative Negative, Invalid PROCEDURE CONTROL Valid 03/14/2023 4:53 PM TAX TECHNICIAN Sherri Alvarez APRN, CNP POINT OF CARE TEST ING (MANUAL) Final Result documented in this encounter Visit Diagnoses Diagnosis Acute non-recurrent pansinusitis- Primary Cough in adult patient documented in this encounter Care Teams Betting Clerk Relationship Specialty Start Date End Date Wesley Douglass MD [address] [place] [address] PCP - General Family Medicine 12/31/21 documented as of this encounter
--- OUTSIDE RECORDS SUMMARY | 2024-02-26 03:06 | XMS_ITS | Referral Summary ---
Author Organization [facility] Address [address] [place] [address] Care Team Providers Care Injection Wax Molder Name Role Phone Wesley Douglass MD Primary Care Provider Allergies Active Allergy Reactions Criticality Noted Date Comments Acetaminophen Hydrocodone Hydrocodone-Acetaminophe n Morphine Other (See comments) Reaction: Itching, , Venom-Wasp Edema Reaction: edema, Medications acetaminophen- codeine (TYLENOL with CODEINE #3) 300-30 mg per tablet take 1 - 2 by oral route every 4 - 6 hours as needed 30 0 3 Active acetaminophen (TYLENOL) 325 mg tablet Take as directed 0 0 9 Active lansoprazole (PREVACID) 30 mg capsule 30 mg. 0 0 9 Active drospirenone-e thinyl estradiol (PIO, 28,) 3-0.02 mg per tablet 0 0 9 Active ibuprofen (MOTRIN) 400 mg tablet 400 mg. 0 0 9 Active multivitamin tablet tablet Take as directed 0 0 9 Active SUMAtriptan (IMITREX) 5 mg/actuation nasal spray 5 mg. 0 0 9 Active aspirin (ASPIRIN CHILDRENS) 81 mg chewable tablet chew 1 tablet (81MG) by oral route every day 0 2 Active docusate sodium (COLACE) 50 mg capsule take 1 capsule (50MG) by oral route 2 times every day 30 0 3 Active SUMAtriptan (IMITREX) 100 mg tablet TAKE ONE BY MOUTH ONE TIME PER DAY NEEDED 6 0 9 Active EPINEPHrine (EPIPEN) 0.3 mg/0.3 mL injection syringe inject (0.3MG) by INTRAMUSCULAR route once as needed for anaphylaxis 2 0 0 Active amoxicillin (AMOXIL) 875 mg tablet take 1 tablet (875MG) by oral route every 12 hours 20 0 2 Active gabapentin (NEURONTIN) 100 mg capsule Take 1 capsule (100 mg total) by mouth 3 (three) times a day. 30 capsule 9 Active Active Problems Problem Noted Date Diagnosed Date Migraine without aura and responsive to treatmen t 09/10/2013 Overview (06/03/2016): COMN MIGRNE WO NTRC MGRN Pulmonary embolism 07/13/2013 Overview (06/02/2016): Pulmonary Embolism Adiposity 07/13/2013 Overview (06/03/2016): OBESITY NOS Open wound of abdominal wall 08/31/2012 Overview (06/02/2016): Open abdominal wall wound Small bowel obstruction (CMS/HCC) 05/24/2012 Overview (06/02/2016): SBO (small bowel obstruction) Recurrent ventral incisional hernia with obstruc tion 05/24/2012 Overview (06/02/2016): Recurrent ventral incisional hernia with obstructi Immunizations Name Administration Dates Next Due Influenza, Trivalent, IM (MDV) 12/17/2008 Tdap 09/29/2009 Social History Tobacco Use Types Packs/Day Years Used Date Smoking Tobacco: Never Assessed Alcohol Use Standard Drinks/Week Comments No 0 (1 standard drink = 0.6 oz pur e alcohol) Comments No Sex and Gender Information Value Date Recorded Sex Assigned at Not on file Legal Sex Female 12:36 PM HEAD START COORDINATOR Gender Identity Not on file Sexual Orientation Not on file Last Filed Vital Signs Vital Sign Reading Time Taken Comments Blood Pressure 136/91 04/01/2018 2:54 PM HEAD START COORDINATOR Pulse 67 04/01/2018 2:54 PM HEAD START COORDINATOR Temperature 36.8 ??C (98.3 ??F) 04/01/2018 2:54 PM CS T Respiratory Rate 18 04/01/2018 2:54 PM HEAD START COORDINATOR Oxygen Saturation 100% 04/01/2018 2:54 PM HEAD START COORDINATOR Inhaled Oxygen Concentration - - Weight 99.8 kg (220 lb) 04/01/2018 2:54 PM HEAD START COORDINATOR Height 170.2 cm (5' 7 ) 04/01/2018 2:54 PM HEAD START COORDINATOR Body Mass Index 34.46 04/01/2018 2:54 PM HEAD START COORDINATOR Plan of Treatment Not on file Procedures Procedure Name Priority Date/Time Associated Diagnosis Comments SCREENING MAMMOGRAM BILATERAL W TORREY Schedule Routine, Read Routine (OP Routine) 11/04/2023 2:21 PM CDT Screening mammogram, encounter for from Last 3 Months or Most Recently Relevant to Health Maintenance Results * (ABNORMAL) Screening Mammogram Bilateral W Torrey (11/04/2023 2:21 PM CDT) Anatomical Region Laterality Modality Breast Bilateral Mammography 11/06/2023 9:27 AM CDT Impressions 11/06/2023 9:27 AM CDT 1. ??Indeterminate right breast focal asymmetry. ??Recommend right diagnostic mammogram with possible right breast diagnostic ultrasound for further evaluation. ??The patient will be contacted. 2. ??No mammographic evidence of malignancy in the left breast. Recommend screening mammography of the left breast in one year. BI-RADS: 0 - Additional imaging evaluation is necessary. Electronically signed by: Javi Malone M.D. Narrative 11/06/2023 9:27 AM CDT EXAMINATION: SCREENING MAMMOGRAM BILATERAL W TORREY ORDERING HEALTHCARE PROVIDER: SELF SCREENING MAMMOGRAM HISTORY: Routine screening mammography. COMPARISON: ??08/01/2022, 02/10/2021, 08/09/2017, 05/04/2016 TECHNIQUE: CC and MLO views of the bilateral breasts were obtained with digital technique using breast tomosynthesis with C view. Computer aided detection was utilized. FINDINGS: DENSITY: There are scattered fibroglandular elements in the bilateral breasts. BREASTS: There is an unchanged small benign circumscribed mass in the lower outer right breast, middle depth. ??There is a new focal asymmetry in the lower outer right breast, posterior depth. ??There is no new suspicious finding in the left breast on mammogram. us Self Screening Mammogram IMG MAMMO PROCEDURES Fi nal Result from Last 3 Months or Most Recently Relevant to Health Maintenance Insurance [employer] by [employer] Care Teams Injection Wax Molder Relationship Specialty Start Date End Date Wesley Douglass MD [address] [facility] [address] [place] [address] PCP - General 01/12/21
--- OUTSIDE RECORDS SUMMARY | 2024-02-26 03:06 | XMS_ITS | Encounter Summary ---
Author Organization [facility] Care Team Providers Care Machine Woodworking Sander Name Role Phone Wesley Douglass MD Primary Care Provider Encounter Details Date Type Department Care Team (Latest Contact Info) Description 03/14/2023 Travel Social History Tobacco Use Types Packs/Day [...] on filedocumented in this encounter Care Teams Machine Woodworking Sander Relationship Specialty Start Date End Date Wesley Douglass MD [address] [facility] [address] [place] [address] PCP - General Family Medicine 12/31/21 documented as of this encounter
--- OUTSIDE RECORDS SUMMARY | 2024-02-26 03:06 | XMS_ITS | Encounter Summary ---
Author Organization [facility] Healthcare Address [address] [place] [address] Care Team Providers Care Business Dean Name Role Phone Wesley Douglass MD Primary Care Provider Reason for Referral * Diagnostic Imaging (Routine) - Closed Specialty Diagnoses / Procedures Referred By Oracio duenas Referred To Contact Diagnoses Abnormal mammogram Procedures Diagnostic Mammogram Right W Anna Kennedy MD [address] [place] [address] Phone: tel: fax: [address] [phone] Referral ID Status Reason Start Date Expiration Date Visits Re quested Visits Authorized [id number] Closed 11/10/2023 12/09/2024 1 1 Reason for Visit * Diagnostic Imaging (Routine) - Closed Specialty Diagnoses / Procedures Referred By Oracio duenas Referred To Contact Diagnoses Abnormal mammogram Procedures Diagnostic Mammogram Right W Anna Kennedy MD [address] [place] [address] Phone: tel: fax: [address] [phone] Referral ID Status Reason Start Date Expiration Date Visits Re quested Visits Authorized [id number] Closed 11/10/2023 12/09/2024 1 1 Encounter Details Date Type Department Care Team (Latest Contact Info) Description 11/15/2023 2:14 PM CDT - 11/15/2023 11:59 PM CDT Hospital Encounter [facility] [address] [place] [id number] Abnormal mammogram Discharge Disposition: Discharge to home or self care Social History Tobacco Use Types Packs/Day Years Used Date Smoking Tobacco: Never Assessed Alcohol Use Standard Drinks/Week Comments No 0 (1 standard drink = 0.6 oz pur e alcohol) Comments No Sex and Gender Information Value Date Recorded Sex Assigned at Not on file 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 ??The finding of concern in the right breast corresponds to a benign 4 mm simple cyst at the 7 o'clock position 8 cm from the nipple. ??This requires no additional specific workup or follow-up. Continued monthly breast self-examination is recommended, and return to annual screening mammography schedule. BI-RADS: 2 - Benign. I discussed the findings and recommendations with the patient at time of the examination. Electronically signed by: JEREMIAH Monroy 11/15/2023 3:05 PM CDT EXAMINATION: DIAGNOSTIC MAMMOGRAM RIGHT W ELOINA, US BREAST RIGHT LIMITED ORDERING HEALTHCARE PROVIDER: ANNA CONCEPCION HISTORY: 53-year-old woman comes in today for evaluation of a new focal asymmetries in the right breast on recent screening mammogram. COMPARISON: ??Screening mammogram dated 11/04/2023. TECHNIQUE: CC and MLO spot compression and LM views of the right breast ??were obtained with digital technique using digital breast tomosynthesis with C view. Computer aided detection was utilized. Targeted sonographic examination of the right breast was performed real-time grayscale images and color Doppler. FINDINGS: MAMMOGRAPHIC FINDINGS: There are scattered areas of fibroglandular density. A 5 mm oval low-density mass with circumscribed margins is confirmed at the 7 o'clock position of the right breast 10 cm from the nipple. There is no associated architectural distortion or suspicious microcalcifications. SONOGRAPHIC FINDINGS: Targeted sonographic examination of the right breast at the 7 o'clock position 8 cm from the nipple demonstrates a 4 mm anechoic mass with circumscribed margins. ??There is slight posterior acoustic enhancement, and no internal blood flow seen on color Doppler. ??This is consistent with a benign simple cyst. us Anna Concepcion MD IMG MAMMO PROCEDURES Fin al Result documented in this encounter Visit Diagnoses Diagnosis Abnormal mammogram Abnormal mammogram, unspecified documented in this encounter Care Teams Business Dean Relationship Specialty Start Date End Date Wesley Douglass MD [address] [facility] [place] [address] [place] [address] PCP - General 01/12/21 documented as of this encounter
--- OUTSIDE RECORDS SUMMARY | 2024-02-26 03:06 | XMS_ITS | Encounter Summary ---
Author Organization [facility] [employer] [facility] Care Team Providers Care Armature Winder Repair Helper Name Role Phone Wesley Douglass MD Primary Care Provider Encounter Details Date Type Department Care Team (Latest Contact Info) Description 12/02/2023 Travel Social History Tobacco Use Types Packs/Day [...] on filedocumented in this encounter Care Teams Armature Winder Repair Helper Relationship Specialty Start Date End Date Wesley Douglass MD [address] [facility] [address] [place] [address] PCP - General Family Medicine 12/31/21 documented as of this encounter
--- OUTSIDE RECORDS SUMMARY | 2024-02-26 03:06 | XMS_ITS | Encounter Summary ---
Author Organization [facility] [employer] [facility] Care Team Providers Care Drug Counselor Name Role Phone Wesley Douglass MD Primary Care Provider Encounter Details Date Type Department Care Team (Latest Contact Info) Description 12/31/2021 Travel Social History Tobacco Use Types Packs/Day Years Used Date Smoking Tobacco: Never Smokeless Tobacco: Never Alcohol Use Standard Drinks/Week Comments Not Currently 0 (1 standard drink = 0.6 oz pur e alcohol) Comments Unknown Sex and Gender Information Value Date Recorded Sex Assigned at Not on file Legal Sex Female 10:25 PM CDT Gender Identity Not on file Sexual Orientation Not on file COVID-19 Exposure Response Date Recorded In the last 10 days, have yo u been in contact with someone who was confirmed or suspected to have Coronavirus/COVID-19? No / Unsure 12/31/2021 9:35 AM CDT documented as of this encounter Plan of Treatment Not on file documented as of this encounter Visit Diagnoses Not on filedocumented in this encounter Care Teams Drug Counselor Relationship Specialty Start Date End Date Wesley Douglass MD [address] [facility] [address] [place] [address] PCP - General Family Medicine 12/31/21 documented as of this encounter
--- OUTSIDE RECORDS SUMMARY | 2024-02-26 03:06 | XMS_ITS | Encounter Summary ---
Author Organization [facility] Healthcare Address [address] [place] [address] Care Team Providers Care Electronic Train Control Technician Name Role Phone Wesley Douglass MD Primary Care Provider Reason for Referral * Diagnostic Imaging (Routine) - Pending Review Specialty Diagnoses / Procedures Referred By Oracio duenas Referred To Contact Diagnoses Abnormal mammogram Procedures US Breast Right Limited Anna Concepcion MD [address] [place] [address] Phone: tel: fax: [address] [phone] Referral ID Status Reason Start Date Expiration Date V isits Requested Visits Authorized [id number] Pending Review 11/10/2023 12/09/2024 1 1 Reason for Visit * Diagnostic Imaging (Routine) - Pending Review Specialty Diagnoses / Procedures Referred By Oracio duenas Referred To Contact Diagnoses Abnormal mammogram Procedures US Breast Right Limited Anna Concepcion MD [address] [place] [address] Phone: tel: fax: [address] [phone] Referral ID Status Reason Start Date Expiration Date V isits Requested Visits Authorized [id number] Pending Review 11/10/2023 12/09/2024 1 1 Encounter Details Date Type Department Care Team (Latest Contact Info) Description 11/15/2023 2:14 PM CDT - 11/15/2023 11:59 PM CDT Hospital Encounter [facility] [address] [place] [address] Abnormal mammogram Discharge Disposition: Discharge to home or self care Social History Tobacco Use Types Packs/Day Years Used Date Smoking Tobacco: Never Assessed Alcohol Use Standard Drinks/Week Comments No 0 (1 standard drink = 0.6 oz pur e alcohol) Comments No Sex and Gender Information Value Date Recorded Sex Assigned at Not on file 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 Gender Identity Not on file Sexual Orientation [...] Procedure Name Priority Date/Time Associated Diagnosis Comments US BREAST RIGHT LIMITED Schedule Routine, Read Routine (OP Routine) 11/15/2023 2:57 PM CDT Abnormal mammogram documented in this encounter Results * US Breast Right Limited (11/15/2023 2:57 PM CDT) Anatomical Region Laterality Modality Breast Right Ultrasound 11/15/2023 3:05 PM CDT Impressions 11/15/2023 3:05 [...] unspecified documented in this encounter Care Teams Electronic Train Control Technician Relationship Specialty Start Date End Date Wesley Douglass MD [address] [facility] [address] [place] [id number] PCP - General 01/12/21 documented as of this encounter
--- OUTSIDE RECORDS SUMMARY | 2024-02-26 03:06 | XMS_ITS | Encounter Summary ---
Author Organization [facility] Address [address] [place] [address] Phone Care Team Providers Care Salesperson Sewing Machines Name Role Phone Wesley Douglass MD Primary Care Provider Reason for Visit * Reason Comments Cough Encounter Details Date Type Department Care Team (Latest Contact Info) Description 12/31/2021 9:40 AM CDT [facility] [place] [address] [place] [phone] Sravani Conklin, GRADUATE STUDENT, ELECTROMECHANIC [address] [place] [address] Acute non-recurrent frontal sinusitis (Primary Dx) Discharge Disposition: Discharged to home [...] AM CDT documented as of this encounter Last Filed Vital Signs Vital Sign Reading Time Taken Comments Blood Pressure 134/86 12/31/2021 10:08 AM CDT Pulse 86 12/31/2021 10:08 AM CDT Temperature 36.6 ??C (97.9 ??F) 12/31/2021 10:08 AM C DT Respiratory Rate 16 12/31/2021 10:08 AM CDT Oxygen Saturation 98% 12/31/2021 10:08 AM CDT Inhaled Oxygen Concentration - - Weight - - Height - - Body Mass Index - - documented in this encounter Patient Instructions * Patient Instructions* Sravani Conklin, SYLVIA, BERNARDINO - 12/31/2021 9:40 AM CDT Images from the original note were not included. Sinusitis, Adult Sinusitis is soreness and swelling (inflammation) of your sinuses. Sinuses are hollow spaces in thebones around your face. They are located: ?? Around your eyes. ?? In the middle of your forehead. ?? Behind your nose. ?? In your cheekbones. Your sinuses and nasal passages are lined with a fluid called mucus. Mucus drains out of your sinuses. Swelling can trap mucus in your sinuses. This lets germs (bacteria, virus, or fungus) grow, which leads to infection. Most of the time, this condition is caused by a virus. What are the causes? This condition is caused by: ?? Allergies. ?? Asthma. ?? Germs. ?? Things that block your nose or sinuses. ?? Growths in the nose (nasal polyps). ?? Chemicals or irritants in the air. ?? Fungus (rare). What increases the risk? You are more likely to develop this condition if: ?? You have a weak body defense system (immune system). ?? You do a lot of swimming or diving. ?? You use nasal sprays too much. ?? You smoke. What are the signs or symptoms? The main symptoms of this condition are pain and a feeling of pressure around the sinuses. Other symptoms include: ?? Stuffy nose (congestion). ?? Runny nose (drainage). ?? Swelling and warmth in the sinuses. ?? Headache. ?? Toothache. ?? A cough that may get worse at night. ?? Mucus that collects in the throat or the back of the nose (postnasal drip). ?? Being unable to smell and taste. ?? Being very tired (fatigue). ?? A fever. ?? Sore throat. ?? Bad breath. How is this diagnosed? This condition is diagnosed based on: ?? Your symptoms. ?? Your medical history. ?? A physical exam. ?? Tests to find out if your condition is short-term (acute) or long-term (chronic). Your doctor may: ? Check your nose for growths (polyps). ? Check your sinuses using a tool that has a light (endoscope). ? Check for allergies or germs. ? Do imaging tests, such as an MRI or CT scan. How is this treated? Treatment for this condition depends on the cause and whether it is short-term or long-term. ?? If caused by a virus, your symptoms should go away on their own within 10 days. You may be givenmedicines to relieve symptoms. They include: ? Medicines that shrink swollen tissue in the nose. ? Medicines that treat allergies (antihistamines). ? A spray that treats swelling of the nostrils.?? ? Rinses that help get rid of thick mucus in your nose (nasal saline washes). ?? If caused by bacteria, your doctor may wait to see if you will get better without treatment. Youmay be given antibiotic medicine if you have: ? A very bad infection. ? A weak body defense system. ?? If caused by growths in the nose, you may need to have surgery. Follow these instructions at home: Medicines ?? Take, use, or apply bmow-jap-rprvcsx and prescription medicines only as told by your doctor. These may include nasal sprays. ?? If you were prescribed an antibiotic medicine, take it as told by your doctor. Do not stop taking the antibiotic even if you start to feel better. Hydrate and humidify ?? Drink enough water to keep your pee (urine) pale yellow. ?? Use a cool mist humidifier to keep the humidity level in your home above 50%. ?? Breathe in steam for 10-15 minutes, 3-4 times a day, or as told by your doctor. You can do this in the bathroom while a hot shower is running. ?? Try not to spend time in cool or dry air. Rest ?? Rest as much as you can. ?? Sleep with your head raised (elevated). ?? Make sure you get enough sleep each night. General instructions ?? Put a warm, moist washcloth on your face 3-4 times a day, or as often as told by your doctor. This will help with discomfort. ?? Wash your hands often with soap and water. If there is no soap and water, use hand laborer gold leaf. ?? Do not smoke. Avoid being around people who are smoking (secondhand smoke). ?? Keep all follow-up visits as told by your doctor. This is important. Contact a doctor if: ?? You have a fever. ?? Your symptoms get worse. ?? Your symptoms do not get better within 10 days. Get help right away if: ?? You have a very bad headache. ?? You cannot stop throwing up (vomiting). ?? You have very bad pain or swelling around your face or eyes. ?? You have trouble seeing. ?? You feel confused. ?? Your neck is stiff. ?? You have trouble breathing. Summary ?? Sinusitis is swelling of your sinuses. Sinuses are hollow spaces in the bones around your face. ?? This condition is caused by tissues in your nose that become inflamed or swollen. This traps germs. These can lead to infection. ?? If you were prescribed an antibiotic medicine, take it as told by your doctor. Do not stop taking it even if you start to feel better. ?? Keep all follow-up visits as told by your doctor. This is important. This information is not intended to replace advice given to you by your health care provider. Make sure you discuss any questions you have with your health care provider. Document Revised: 07/16/2018 Document Reviewed: 07/16/2018 [employer] Patient Education ?? 2021 [employer] Antihistamine and decongestant of choice. Comfort care Tylenol or ibuprofen for fever or body aches. Rest and increase fluids. Cool mist vaporizer See family doctor if symptoms worsen or fail to resolve. Increase the amount of fluids that you are drinking. Water, Pedialyte, Gatorade or Powerade are thebest choices. Rest or nap frequently to help your body recover. Care as instructed on AVS If medication was prescribed it was sent to the pharmacy. Take all medication as prescribed. Do not skip a dose and take until completed. Follow up with PCP if the symptoms do not improve Go to the ER if symptoms become severe documented in this encounter Progress Notes * Michel Benavides - 12/31/2021 9:40 AM CDT Yolande Jimenez complains of Cough, headache, sore throat, left ear pain and chest congestion. Ptstates symptoms started about two weeks ago and have remained unchanged since onset. Pt denies fever, body aches, shortness of breath and chills. Pt has taken cough medicine, which did not offer relief. Pt states left side of throat hurts more than right side. Pt denies trouble swallowing and swollen glands. Pt states sore throat is 5/10. Cough This is a new problem. Episode onset: about two weeks ago. The problem has been unchanged. The problem occurs constantly. The cough is productive of sputum. Associated symptoms include headaches and a sore throat. Associated symptoms comments: Chest congestion . Treatments tried: cough medicine. The treatment provided no relief. Today's Review of Systems HENT: Positive for sore throat. Neurological: Positive for headaches. * Sravani Conklin APRN, CNP - 12/31/2021 9:40 AM CDT Images from the original note were not included. HPI: Yolande Jimenez is a 51 y.o. female in the prompt care today for cough. Symptoms started 2 weeks ago Severity of symptoms is pain level of 5/10 Associated symptoms include VALLES, sore throat, left ear pain and chest congestion Patient is currently taking over the counter cough medication, Nyquil and delsym for the symptoms. Smoker: No No pertinent Past, family, or social history was noted There is no problem list on file for this patient. ROS: Review of Systems Constitutional: Negative for appetite change, chills and fever. HENT: Positive for congestion, ear pain (left), postnasal drip, sinus pressure, sinus pain and sorethroat. Respiratory: Positive for cough (productive of green/ yellow phlegm). Negative for chest tightness and shortness of breath. Musculoskeletal: Negative for myalgias. Neurological: Positive for headaches (chronic migrain with some sinus pressure behind eyes and in frontal area). Psychiatric/Behavioral: Positive for sleep disturbance (unable to sleep due to cough). PE: BP 134/86 (BP Location: Right Arm, BP Position: Sitting, BP Cuff Size: Large) Pulse 86 Temp 97.9 ??F (36.6 ??C) (Temporal) Resp 16 SpO2 98% Physical Exam Vitals and nursing note reviewed. Constitutional: General: She is not in acute distress. Appearance: Normal appearance. She is normal weight. She is not ill-appearing. HENT: Head: Normocephalic and atraumatic. Right Ear: Tympanic membrane normal. Left Ear: Tympanic membrane normal. Nose: Congestion present. Right Turbinates: Pale. Left Turbinates: Pale. Right Sinus: Frontal sinus tenderness present. No maxillary sinus tenderness. Left Sinus: Frontal sinus tenderness present. No maxillary sinus tenderness. Mouth/Throat: Mouth: Mucous membranes are moist. Pharynx: Oropharynx is clear. Posterior oropharyngeal erythema (postnasal drainage) present. Cardiovascular: Rate and Rhythm: Normal rate and regular rhythm. Pulses: Normal pulses. Heart sounds: Normal heart sounds. Pulmonary: Effort: Pulmonary effort is normal. No respiratory distress. Musculoskeletal: Cervical back: Normal range of motion and neck supple. No tenderness. Lymphadenopathy: Cervical: No cervical adenopathy. Skin: General: Skin is warm and dry. Neurological: Mental Status: She is alert and oriented to person, place, and time. ASSESSMENT/PLAN: 1. Acute non-recurrent frontal sinusitis - Amoxicillin 500 MG Tablet; Take 1 Tablet by mouth 2 times daily for 7 days. Dispense: 14 Tablet; Refill: 0 - cetirizine (ZyrTEC) 10 MG Tablet; Take 1 Tablet by mouth daily. Dispense: 30 Tablet; Refill: 0 - increase PO fluids - antihistamine or decongestant of choice - Delsym as directed on bottle as needed for cough AVS from today was printed, discussed with patient/family and given to patient/family Patient Instructions Sinusitis, Adult Sinusitis is soreness and swelling (inflammation) of your sinuses. Sinuses are hollow spaces in thebones around your face. They are located: ?? Around your eyes. ?? In the middle of your forehead. ?? Behind your nose. ?? In your cheekbones. Your sinuses and nasal passages are lined with a fluid called mucus. Mucus drains out of your sinuses. Swelling can trap mucus in your sinuses. This lets germs (bacteria, virus, or fungus) grow, which leads to infection. Most of the time, this condition is caused by a virus. What are the causes? This condition is caused by: ?? Allergies. ?? Asthma. ?? Germs. ?? Things that block your nose or sinuses. ?? Growths in the nose (nasal polyps). ?? Chemicals or irritants in the air. ?? Fungus (rare). What increases the risk? You are more likely to develop this condition if: ?? You have a weak body defense system (immune system). ?? You do a lot of swimming or diving. ?? You use nasal sprays too much. ?? You smoke. What are the signs or symptoms? The main symptoms of this condition are pain and a feeling of pressure around the sinuses. Other symptoms include: ?? Stuffy nose (congestion). ?? Runny nose (drainage). ?? Swelling and warmth in the sinuses. ?? Headache. ?? Toothache. ?? A cough that may get worse at night. ?? Mucus that collects in the throat or the back of the nose (postnasal drip). ?? Being unable to smell and taste. ?? Being very tired (fatigue). ?? A fever. ?? Sore throat. ?? Bad breath. How is this diagnosed? This condition is diagnosed based on: ?? Your symptoms. ?? Your medical history. ?? A physical exam. ?? Tests to find out if your condition is short-term (acute) or long-term (chronic). Your doctor may: ? Check your nose for growths (polyps). ? Check your sinuses using a tool that has a light (endoscope). ? Check for allergies or germs. ? Do imaging tests, such as an MRI or CT scan. How is this treated? Treatment for this condition depends on the cause and whether it is short-term or long-term. ?? If caused by a virus, your symptoms should go away on their own within 10 days. You may be givenmedicines to relieve symptoms. They include: ? Medicines that shrink swollen tissue in the nose. ? Medicines that treat allergies (antihistamines). ? A spray that treats swelling of the nostrils.?? ? Rinses that help get rid of thick mucus in your nose (nasal saline washes). ?? If caused by bacteria, your doctor may wait to see if you will get better without treatment. Youmay be given antibiotic medicine if you have: ? A very bad infection. ? A weak body defense system. ?? If caused by growths in the nose, you may need to have surgery. Follow these instructions at home: Medicines ?? Take, use, or apply [id number]-ukkpopk and prescription medicines only as told by your doctor. These may include nasal sprays. ?? If you were prescribed an antibiotic medicine, take it as told by your doctor. Do not stop taking the antibiotic even if you start to feel better. Hydrate and humidify ?? Drink enough water to keep your pee (urine) pale yellow. ?? Use a cool mist humidifier to keep the humidity level in your home above 50%. ?? Breathe in steam for 10-15 minutes, 3-4 times a day, or as told by your doctor. You can do this in the bathroom while a hot shower is running. ?? Try not to spend time in cool or dry air. Rest ?? Rest as much as you can. ?? Sleep with your head raised (elevated). ?? Make sure you get enough sleep each night. General instructions ?? Put a warm, moist washcloth on your face 3-4 times a day, or as often as told by your doctor. This will help with discomfort. ?? Wash your hands often with soap and water. If there is no soap and water, use hand laborer gold leaf. ?? Do not smoke. Avoid being around people who are smoking (secondhand smoke). ?? Keep all follow-up visits as told by your doctor. This is important. Contact a doctor if: ?? You have a fever. ?? Your symptoms get worse. ?? Your symptoms do not get better within 10 days. Get help right away if: ?? You have a very bad headache. ?? You cannot stop throwing up (vomiting). ?? You have very bad pain or swelling around your face or eyes. ?? You have trouble seeing. ?? You feel confused. ?? Your neck is stiff. ?? You have trouble breathing. Summary ?? Sinusitis is swelling of your sinuses. Sinuses are hollow spaces in the bones around your face. ?? This condition is caused by tissues in your nose that become inflamed or swollen. This traps germs. These can lead to infection. ?? If you were prescribed an antibiotic medicine, take it as told by your doctor. Do not stop taking it even if you start to feel better. ?? Keep all follow-up visits as told by your doctor. This is important. This information is not intended to replace advice given to you by your health care provider. Make sure you discuss any questions you have with your health care provider. Document Revised: 07/16/2018 Document Reviewed: 07/16/2018 [employer] Patient Education ?? 2021 [employer]. Antihistamine and decongestant of choice. Comfort care Tylenol or ibuprofen for fever or body aches. Rest and increase fluids. Cool mist vaporizer See family doctor if symptoms worsen or fail to resolve. Increase the amount of fluids that you are drinking. Water, Pedialyte, Gatorade or Powerade are thebest choices. Rest or nap frequently to help your body recover. Care as instructed on AVS If medication was prescribed it was sent to the pharmacy. Take all medication as prescribed. Do not skip a dose and take until completed. Follow up with PCP if the symptoms do not improve Go to the ER if symptoms become severe Chief complaint and all history documented by ancillary staff were reviewed and verified, with additions or corrections, as appropriate. documented in this encounter Plan of Treatment Not on file documented as of this encounter Visit Diagnoses Diagnosis Acute non-recurrent frontal sinusitis- Primary documented in this encounter Care Teams Salesperson Sewing Machines Relationship Specialty Start Date End Date Wesley Douglass MD [address] [place] [address] PCP - General Family Medicine 12/31/21 documented as of this encounter
--- OUTSIDE RECORDS SUMMARY | 2024-02-26 03:06 | XMS_ITS | Clinical Summary ---
Author Organization [facility] Address [address] [place] [address] Phone Care Team Providers Care Content Coordinator Name Role Phone Wesley Douglass MD Primary Care Provider Allergies Active Allergy Reactions Criticality Noted Date Comments Hydrocodone Rash,Vomiting 03/14/2023 Oxycodone Swelling,Vomiting 12/31/2021 Medications Eletriptan Hydrobromide 40 MG Tablet TAKE 1 TABLET BY MOUTH AT ONSET OF HEADACHE; IF NO RELIEF MAY REPEAT 1 TAB IN 2 HOURS; MAX 2 TABS IN 24 HOURS. 11/04/19 22 Active meloxicam (MOBIC) 7.5 MG Tablet Take 7.5 mg by mouth daily. 11/04/19 22 Active aspirin EC 81 MG Tablet Delayed Response Take 81 mg by mouth daily. Active cetirizine (ZyrTEC) 10 MG TabletIndication s:Acute non-recurrent frontal sinusitis Take 1 Tablet by mouth daily. 30 Tablet 01/01/20 22 Active EPINEPHrine (EpiPen 2-Ramon) 0.3 MG/0.3ML Solution Auto-injector inject (0.3MG) by INTRAMUSCULAR route once as needed for anaphylaxis 10/02/19 10 Active ofloxacin (OCUFLOX) 0.3 % Solution Place 1 Drop in affected eye(s) 4 times daily. 5 mL 05/18/19 24 Active Active Problems No known active problems Encounters Date Type Department Care Team Description 12/02/2023 3:05 PM CDT Urgent Care Visit [facility] [place] [address] [place] [phone] Orlando Dyer, PAC Acute maxillary sinusitis, recurrence not specified (Primary Dx) Discharge Disposition: Discharged to home or Selfcare 12/02/2023 Travel from Last 3 Months Social History Tobacco Use Types Packs/Day Years [...] CDT Inhaled Oxygen Concentration - - Weight 106.6 kg (235 lb) 03/14/2023 4:47 PM BINGO MANAGER Height - - Body Mass Index - - Plan of Treatment Health Maintenance Due Date Last Done Comments Hepatitis C Virus (HCV) Screening 1968 Hepatitis B Immunization (1 of 3 - 19+ 3-dose series) 10/13/1987 Pap Smear 1989 Cervical Cancer Screening (CCS) 1998 HPV/Cotest 1998 Colonoscopy 2013 Colorectal Cancer Screening 2013 Cologuard 2018 Immunochemical Fecal Occult Blood 2018 Pneumococcal Immunization (50+ years) (1 of 1 - PCV) 2018 Zoster Immunization (1 of 2) 2018 Influenza Immunization (#1) 2023 SARS-COV-2 Immunization ( - 2023- season) 2023 Mammogram 11/03/2025 11/04/2023, 06/0 06/2022, 02/10/2021, Additional history exists Respiratory Syncytial Virus (RSV) Immunization (Adult) (1 - 1-dose 75+ series) 10/13/2043 DTaP/Tdap/Td Immunization Discontinued 09/29/2009 TdaP Immunization Completed 09/29/2009 Meningococcal Immunization (ACWY) Aged Out No longer eligible based on patient's age to complete this topic Pneumococcal Immunization Combined Aged Out No longer eligible based on patient's age to complete this topic Rotavirus Immunization Aged Out No lo nger eligible based on patient's age to complete this topic Insurance [facility] Care Teams Content Coordinator Relationship Specialty Start Date End Date Wesley Douglass MD [address] [place] [address] PCP - General Family Medicine 12/31/21
--- OUTSIDE RECORDS SUMMARY | 2024-02-26 03:06 | XMS_ITS | Clinical Summary ---
Author Organization [facility] Address [address] [place] [address] Care Team Providers Care Well Logging Captain Name Role Phone Wesley Douglass MD Primary [...] Influenza, Trivalent, IM (MDV) 12/17/2008 Tdap 09/29/2009 Surgical History Surgery Date Site/Laterality Comments OTHER SURGICAL HISTORY : x 2 OTHER SURGICAL HISTORY OM: tubes OTHER SURGICAL HISTORY knee pain: surgery SECTION 02/27/2001 - 02/26/2002 section SECTION 02/27/2003 - 02/27/2004 section OTHER SURGICAL HISTORY tubes in ears yrs. ago KNEE ARTHROSCOPY 02/27/1985 - 02/26/1986 Arthroscopy knee OTHER SURGICAL HISTORY 02/28/2008 - 02/26/2009 teratoma: resection OTHER SURGICAL HISTORY hernia: herniorrhaphy OTHER SURGICAL HISTORY 02/28/2012 - 02/26/2013 repair recurrrent incar. inci. VH & sbo OTHER SURGICAL HISTORY 02/28/2012 - 02/26/2013 open abdominal wound debridement / wound vac place OOPHORECTOMY Left left ovary removed 2008 Medical History Medical History Date Comments Hx Other Medical Hx Other Medical OM Hx Other Medical knee pain Hx Other Medical teratoma Hx Other Medical hernia Pulmonary embolism (HCC) Family History Medical History Relation Name Comments Breast cancer Father's Sister Coronary artery disease Mother Papito nary artery disease, premature; Hypertension Mother Hypertension; Breast cancer Sister jason Diabetes type II Sister jason Diabetes -T ype II; Relation Name Status Comments Father's Sister Mother Sister jason Alive Social History Tobacco Use Types Packs/Day Years Used Date Smoking Tobacco: Never Assessed Alcohol Use Standard Drinks/Week Comments No 0 (1 standard drink = 0.6 oz pur e alcohol) Comments No Sex and Gender Information Value Date Recorded Sex Assigned at Not on file Legal Sex Female 12:36 PM UTILITY PIPE LAYER Gender Identity Not on file Sexual Orientation Not on file Obstetrics History Para Term AB IAB SAB Ectopic Multiple Livin g Live Births 2 2 2 Date Outcome GA Total Labor Labor/2nd/3rd Weight Sex Type Anes PTL Citlaly A1 A5 Name Clin Term Term Last Filed Vital Signs Vital Sign Reading Time Taken Comments Blood Pressure 136/91 04/01/2018 2:54 PM UTILITY PIPE LAYER Pulse 67 04/01/2018 2:54 PM UTILITY PIPE LAYER Temperature 36.8 ??C (98.3 ??F) 04/01/2018 2:54 PM CS T Respiratory Rate 18 04/01/2018 2:54 PM UTILITY PIPE LAYER Oxygen Saturation 100% 04/01/2018 2:54 PM UTILITY PIPE LAYER Inhaled Oxygen Concentration - - Weight 99.8 kg (220 lb) 04/01/2018 2:54 PM UTILITY PIPE LAYER Height 170.2 cm (5' 7 ) 04/01/2018 2:54 PM UTILITY PIPE LAYER Body Mass Index 34.46 04/01/2018 2:54 PM UTILITY PIPE LAYER Plan of Treatment Health Maintenance Due Date Last Done Comments Cervical Cancer Screening 1968 Colon Cancer Screening-Colonoscopy 1968 Depression Screening 1968 Hepatitis C Screening 1968 Hepatitis B Screening 1986 Regular Well Visit/Exam 18-64 1986 Zoster Vaccine (1 of 2) 2018 DTaP/Tdap/Td Vaccine (2 - Td or Tdap) 09/30/2019 09/29/2009 Covid-19 Vaccine (3 - season) 2023 06/14/2020, 05/24/2020 Influenza Vaccine (#1) 2023 01/28/2020, 2008 Breast Cancer Screening-Mammogram 11/03/2024 11/04/2023, 08/01/2022, 08/01/2022, Additional history exists Pneumococcal vaccine <65 Aged Out No longer eligible based on patient's age to complete this topic Procedures Procedure Name Priority Date/Time Associated Diagnosis [...] Most Recently Relevant to Health Maintenance Insurance [place] [employer] Care Teams Well Logging Captain Relationship Specialty Start Date End Date Wesley Douglass MD [address] [facility] [place] [address] [place] [address] PCP - General 01/12/21
--- OUTSIDE RECORDS SUMMARY | 2024-02-26 03:07 | XMS_ITS | Encounter Summary ---
Author Organization [facility] Healthcare Address [address] [place] [address] Care Team Providers Care Optometry Assistant Name Role Phone Lobo Bazan MD Primary Care Provider [phone]- [phone] Encounter Details Date Type Department Care Team (Late st Contact Info) Description 03/14/2012 5:05 PM COMPOSITE ASSEMBLER - 03/14/2012 11:59 PM COMPOSITE ASSEMBLER Hospital Encounter [facility] Lobo Bazan MD [address] [place], [place] [id number] Abdominal pain, generalized; Vomiting alone; Diarrhea Social History Tobacco Use Types Packs/Day Years Used Date Smoking Tobacco: Never Assessed Comments Unknown Sex and Gender Information Value Date Recorded Sex Assigned at Not on file Legal Sex Female 12:36 PM COMPOSITE ASSEMBLER Gender Identity Not on file Sexual Orientation Not on file documented as of this encounter Medications at Time of Discharge acetaminophen (TYLENOL) 325 mg tablet Take as directed 0 0 07/14/2008 amoxicillin (AMOXIL) 875 mg tablet take 1 [...] 0 07/14/2008 documented as of this encounter Plan of Treatment Not on file documented as of this encounter Procedures Procedure Name Priority Date/Time Associated Diagnosis Comments ABDOMINAL, CHEST RADIOGRAPHY, SUPINE, ERECT Routine 03/14/2012 5:58 PM COMPOSITE ASSEMBLER documented in this encounter Results * ABDOMINAL, CHEST RADIOGRAPHY, SUPINE, ERECT (03/14/2012 5:58 PM COMPOSITE ASSEMBLER) Anatomical Region Laterality Modality N/A Radiographic Rae ging 03/14/2012 5:58 PM COMPOSITE ASSEMBLER Narrative 03/15/2012 6:17 AM COMPOSITE ASSEMBLER vm XR Abd Obst Series W Chest [id number] ??Acc#: ??[id number] DATE OF EXAM: ??Mar 14 2012 CLINICAL HISTORY: Diffuse abdominal pain, vomiting and diarrhea. RESULT: Three view abdominal series a normal bowel gas pattern. ??Patient is status post cholecystectomy. ??There is no evidence of abnormal calcification or free air. ??The lungs are clear. IMPRESSION: NORMAL BOWEL GAS PATTERN. Interpreting Physician: ??DR ADÁN DURBIN M.D. ??Read on: ??Mar 14 2012 6:02P Transcribed by: ??julia ??On: Mar 14 2012 ??6:59P Approved Electronically by: ??RAMAKRISHNA Boudreaux, DR MCCAIN ??on: ??Mar 15 2012 6:17A Ordering DR: DR LOBO BAZAN Attending : LOBO BAZAN Procedure Note Provider, MD Kendrick - 06/30/2016 vm XR Abd Obst Series W Chest [id number] Acc#: [id number] DATE OF EXAM: Mar 14 2012 CLINICAL HISTORY: Diffuse abdominal pain, vomiting and diarrhea. RESULT: Three view abdominal series a normal bowel gas pattern. Patient is statuspost cholecystectomy. There is no evidence of abnormal calcification orfree air. The lungs are clear. IMPRESSION: NORMAL BOWEL GAS PATTERN. Interpreting Physician: DR ADÁN DURBIN M.D. Read on: Mar 14 20126:02P Transcribed by: julia On: Mar 14 2012 6:59P Approved Electronically by: RAMAKRISHNA Boudreaux, DR MCCAIN on: Mar 15 20126:17A Ordering DR: DR LOBO BAZAN Attending DR: LOBO BAZAN us Historical Provider IMG XR PROCEDURES Final R esult documented in this encounter Visit Diagnoses Diagnosis Abdominal pain, generalized Vomiting alone Diarrhea documented in this encounter Care Teams Optometry Assistant Relationship Specialty Start Date End Date Lobo Bazan MD PCP - General 11/17/08 05/03/16 documented as of this encounter
--- OUTSIDE RECORDS SUMMARY | 2024-02-26 03:07 | XMS_ITS | Encounter Summary ---
Author Organization [facility] Healthcare Address [address] [place] [address] Care Team Providers Care Institute Scientist Name Role Phone Lobo Bazan MD Primary Care Provider +1- [phone] Encounter Details Date Type Department Care Team (Late st Contact Info) Description 08/31/2012 6:36 AM CDT - 08/31/2012 11:40 AM CDT Hospital Encounter [facility] Emely, Michel Dudley MD [address] [place] [id number] Infected postoperative seroma; Other specified surgical operation and procedure causing abnormal patient reaction or later complication; Place of occurrence, residential institution; Esophageal reflux; Migraine; Personal history of venous thrombosis and embolism; Obesity Social History Tobacco Use Types Packs/Day Years Used Date Smoking Tobacco: Never Assessed Comments Unknown Sex and Gender Information Value Date Recorded Sex Assigned at Not on file Legal Sex Female 12:36 PM PATHOLOGY SPECIALIST Gender Identity Not on file Sexual [...] 0 07/14/2008 documented as of this encounter Miscellaneous Notes * Op Note - Provider, MD Kendrick - 08/31/2012 12:00 AM CDT OPERATIVE REPORT Patient: MARI ORDONEZ Account: [id number] Room No: 175-04 : 1970 Patient Type: [facility] Attend.: Michel May M.D. Admit Date: 08/31/2012 Surg.: Michel May M.D. Disch. Date: DATE OF OPERATION August 31, 2012 PREOPERATIVE DIAGNOSIS Infected postoperative seroma. POSTOPERATIVE DIAGNOSIS Infected postoperative seroma. NAME OF OPERATION Abdominal wound debridement, wound vac placement. ANESTHESIA Monitored anesthesia care with local. INDICATIONS This is a 41-year-old woman who had recurrent ventral hernia which was repaired earlier this year. She went on to have a nonhealing wound with chronic drainage. I ordered a CT scan which revealed an air fluid level within the subcutaneous tissue and decided to proceed with operative debridement. DESCRIPTION OF THE PROCEDURE The risks and benefits of the procedure were explained to the patient and informed consent was obtained. She was brought to the operating room, she was placed on the OR table in the supine position. Monitored anesthesia care was induced and her abdomen was prepped and draped in a sterile fashion. I used a blend of lidocaine and Marcaine to inject the tissue around the wound. I then incised the skin, moving cephalad from the sinus with a 10 blade. I carried the incision down to the fascial level with the Bovie. The wound cavity was encountered. It was noted to be surrounded by woody abnormal tissue. I debrided this back to healthy subcutaneous tissue with the Bovie circumferentially. The final dimensions of the wound were 40 cm in length, 26 cm in with, 31 cm in depth. The type of tissue removed was fibrin and subcutaneous tissue. I then placed the wound vac and concluded the operation. The patient tolerated the procedure well. Michel May M.D. XIANG/angi TD: 08/31/2012 09:45 Authenticated by Michel May MD On 09/07/2012 03:44:46 PM documented in this encounter Plan of Treatment Not on file documented as of this encounter Procedures Procedure Name Priority Date/Time Associated Diagnosis Comments SURGICAL PATHOLOGY REPORT Routine 08/31/2012 2:20 PM CDT DISCHARGE LABORATORY CUMULATIVE REPORT Routine 08/31/2012 12:00 AM CDT documented in this encounter Results * Surgical Pathology Report (08/31/2012 2:20 PM CDT) 08/31/2012 2:20 PM CDT Narrative HISTORICAL RESULTS - 09/03/2012 12:50 PM CDT [facility] Patient No: [id number] Patient Name: MARI ORDONEZ Age: 41 YRS ?? : 1970 Admit Phys: MICHEL MAY MD Case #: [id number] ? Date: 08/31/12 SPECIMEN SOURCE: ? Debrided subcutaneous tissue. CLINICAL INFORMATION AND IMPRESSION: ? Infected post-op ceroma. ??Debridement abdomen wound with ? wound vac. GROSS DESCRIPTION: ? The specimen is submitted in a single container labeled ? Mari Ordonez and debrided subcutaneous tissue . ? Submitted are multiple (approximately 11) irregularly shaped ? pieces of soft tissue that assume an aggregate measurement of ? 4.5 x 4.2 x 2.0 cm. ??The specimen primarily appears to ? consist of firm fibroadipose tissue but also includes at ? least one recognizable ellipse of diop skin. ??Patchy foci of ? hemorrhage are noted, particularly in association with the ? skin. ??The specimen is represented in two cassettes. ?SR/lm MICROSCOPIC DESCRIPTION: ? Microscopic examination reveals benign, non-neoplastic ? tissues that include skin and subcutaneous fibroadipose ? tissue. The skin shows at least focal ulceration accompanied ? by some underlying granulation tissue. ??The underlying soft ? tissues also show a reactive fibrosis with prominent vascular ? congestion, hemorrhage, fibrin deposition and a minimal and ? patchy mixed infiltrate of acute and chronic inflammatory ? cells. ??Eosinophils are fairly conspicuous, moderate in ? number, and there are also several aggregates of foreign body ? type giant cells. ?SR/lm DIAGNOSIS: ? SKIN AND SOFT TISSUE, ABDOMINAL WOUND DEBRIDEMENT: ? -ULCERATION ? -REACTIVE FIBROSIS ? -FAT NECROSIS ? -RECENT AND REMOTE HEMORRHAGE ? [id number], [id number], [id number], [id number], [id number], [id number] ? Pathologist: Ping Gonzalez M.D. ??Electronic ?signature ? SCR SCR/LM 09/03/12 us Historical Provider MD LAB PATHOLOGY ORDERABLES Final Result HISTORICAL RESULTS * Discharge Laboratory Cumulative Report (08/31/2012 12:00 AM CDT) 08/31/2012 Narrative HISTORICAL RESULTS - 09/04/2012 12:27 AM CDT Patient No: [id number] ? [facility] Patient Name: MARI ORDONEZ ? [facility] Healthcare Age: 41 YRS ?: 1970 ?Sex:F ?[address] )[id number] ?? Adm Dt: 08/31/2012 ?[place], [place] ??[address] Created: 09/04/2012 ??0027 ?? Pt. Type: O ? Discharge Dt: 08/31/2012 ? Pathologists: Ping Gonzalez MD Admit Dr. Camilo Foreman: MICHEL MAY MD ?S U R G I C A L ?P A T H O L O G Y ?R E P O R T ? Case #: ?[id number] ? Date: 08/31/12 SPECIMEN SOURCE: ? Debrided subcutaneous tissue. CLINICAL INFORMATION AND IMPRESSION: ? Infected post-op ceroma. ??Debridement abdomen wound with wound vac. GROSS DESCRIPTION: ? The specimen is submitted in a single container labeled Mari Ordonez and ? debrided subcutaneous tissue . ??Submitted are multiple (approximately 11) ? irregularly shaped pieces of soft tissue that assume an aggregate measurement ? of 4.5 x 4.2 x 2.0 cm. ??The specimen primarily appears to consist of firm ? fibroadipose tissue but also includes at least one recognizable ellipse of diop ? skin. ??Patchy foci of hemorrhage are noted, particularly in association with ? the skin. ??The specimen is represented in two cassettes. ?SR/lm MICROSCOPIC DESCRIPTION: ? Microscopic examination reveals benign, non-neoplastic tissues that include ? skin and subcutaneous fibroadipose tissue. The skin shows at least focal ? ulceration accompanied by some underlying granulation tissue. ??The underlying ? soft tissues also show a reactive fibrosis with prominent vascular congestion, ? hemorrhage, fibrin deposition and a minimal and patchy mixed infiltrate of ? acute and chronic inflammatory cells. ??Eosinophils are fairly conspicuous, ? moderate in number, and there are also several aggregates of foreign body type ? giant cells. ?SR/lm ?? CONTINUED ?Page: ?? 1 Patient No: [id number] ? [facility] Patient Name: MARI ORDONEZ ? [facility] Healthcare Age: 41 YRS ?: 1970 ?Sex:F ?[address] )[id number] ?? Adm Dt: 08/31/2012 ?[place], [place] ??[address] Created: 09/04/2012 ??0027 ?? Pt. Type: O ? Discharge Dt: 08/31/2012 ? Pathologists: Ping Gonzalez MD Admit DrArmand Attend Dr: MICHEL MAY MD ?S U R G I C A L ?P A T H O L O G Y ?R E P O R T ? Case #: ?[id number] ? Date: 08/31/12 DIAGNOSIS: ? SKIN AND SOFT TISSUE, ABDOMINAL WOUND DEBRIDEMENT: ? -ULCERATION ? -REACTIVE FIBROSIS ? -FAT NECROSIS ? -RECENT AND REMOTE HEMORRHAGE ? [id number], [id number], [id number], [id number], [id number], [id number] ? Pathologist: Ping Gonzalez M.D. ??Electronic signature ? SCR SCR/NICKOLAS 09/03/12 ?? END OF CHART ? Page: ?? 2 us Historical Provider MD LAB BLOOD ORDERABLES Juany rowe Result HISTORICAL RESULTS documented in this encounter Visit Diagnoses Diagnosis Infected postoperative seroma Other specified surgical operation and procedure causing abnormal patient reaction or later complication Place of occurrence, residential institution Esophageal reflux Migraine Migraine, unspecified, without mention of intractable migraine without mention of status migrainosus Personal history of venous thrombosis and embolism Obesity Obesity, unspecified documented in this encounter Care Teams Institute Scientist Relationship Specialty Start Date End Date Lobo Bazan MD PCP - General 11/17/08 05/03/16 documented as of this encounter
--- OUTSIDE RECORDS SUMMARY | 2024-02-26 03:07 | XMS_ITS | Encounter Summary ---
Author Organization [facility] Healthcare Address [address] [place] [address] Care Team Providers Care Parking Control Officer Name Role Phone Lobo Bazan MD Primary Care Provider [phone]- [phone] Encounter Details Date Type Department Care Team (Late st Contact Info) Description 09/16/2008 11:36 AM CDT - 09/16/2008 11:59 PM CDT Hospital Encounter [facility] Clint Aranda MD [address] [facility] [address] [place] [address] Non-healing surgical wound Social History Tobacco Use Types Packs/Day Years Used Date Smoking Tobacco: Never Assessed Comments Unknown Sex and Gender Information Value Date Recorded Sex Assigned at Not on file Legal Sex Female 12:36 PM 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 [...] as of this encounter Visit Diagnoses Diagnosis Non-healing surgical wound documented in this encounter Care Teams Parking Control Officer Relationship Specialty Start Date End Date Lobo Bazan MD PCP - General 08/18/08 10/06/08 documented as of this encounter
--- OUTSIDE RECORDS SUMMARY | 2024-02-26 03:07 | XMS_ITS | Encounter Summary ---
Author Organization [facility] Healthcare Address [address] [place] [address] Care Team Providers Care Snorkelling Instructor Name Role Phone Lobo Bazan MD Primary Care Provider [phone] Lobo Bazan MD Primary Care Provider [phone] Encounter Details Date Type Department Care Team (Late st Contact Info) Description 09/27/2008 12:01 AM CDT - 10/27/2008 11:59 PM CDT Hospital Encounter [facility] Clint Aranda MD [address] [facility] [address] [place] [address] Non-healing surgical wound Social History Tobacco Use Types Packs/Day Years Used Date Smoking Tobacco: Never Assessed Comments Unknown Sex and Gender Information Value Date Recorded Sex Assigned at Not on file Legal Sex Female 12:36 PM 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
--- OUTSIDE RECORDS SUMMARY | 2024-02-26 03:07 | XMS_ITS | Encounter Summary ---
Author Organization [facility] Healthcare Address [address] [place] [address] Care Team Providers Care Foundation Relations Director Name Role Phone Lobo Bazan MD Primary Care Provider [phone] Encounter Details Date Type Department Care Team (Late st Contact Info) Description 08/09/2017 12:31 PM CDT - 08/09/2017 11:59 PM CDT Hospital Encounter [facility] [address] [place] [address] Shanice Frankel MD [address] [place] [address] Screening breast examination Discharge Disposition: Discharge to home or self care Social History Tobacco Use Types Packs/Day Years Used Date Smoking Tobacco: Never Assessed Alcohol Use Standard Drinks/Week Comments No 0 (1 standard drink = 0.6 oz pur e alcohol) Comments No Sex and Gender Information Value Date Recorded Sex Assigned at Not on file Legal Sex Female 12:36 PM DOBIE MAN Gender Identity Not on file Sexual Orientation Not on file documented as of this encounter Last Filed Vital Signs Vital Sign Reading Time Taken Comments Blood Pressure - - Pulse - - Temperature - - Respiratory Rate - - Oxygen Saturation - - Inhaled Oxygen Concentration - - Weight 87.5 kg (193 lb) 08/09/2017 12:54 PM CDT Height 170.2 cm (5' 7 ) 08/09/2017 12:54 PM CDT Body Mass Index 30.23 08/09/2017 12:54 PM CDT documented in this encounter Medications at Time of Discharge [...] Priority Date/Time Associated Diagnosis Comments SCREENING MAMMOGRAM 2D BILATERAL Schedule Routine, Read Routine (OP Routine) 08/09/2017 1:01 PM CDT Screening breast examination documented in this encounter Results * Screening Mammogram 2D Bilateral (08/09/2017 1:01 PM CDT) Anatomical Region Laterality Modality Breast Bilateral Mammography 08/09/2017 1:02 PM CDT Impressions 08/09/2017 1:04 PM CDT 1. ??NO FINDINGS SUSPICIOUS FOR MALIGNANCY. 2. ??ANNUAL FOLLOW-UP RECOMMENDED. BI-RADS 1--negative Electronically signed by: Jamal Shen Jr., M.D. Narrative 08/09/2017 1:04 PM CDT SCREENING MAMMOGRAM 2D BILATERAL HISTORY: Encounter for screening mammogram for malignant neoplasm of breast. Family history of breast cancer (sister). TECHNIQUE: 2 views of each breast were obtained with bilateral breast tomosynthesis. COMPARISON: 05/04/2016, 03/31/2015, 01/17/2014, 01/16/2013. FINDINGS: Scattered fibroglandular densities bilaterally. No dominant mass, skin thickening, nipple retraction or suspicious cluster of microcalcifications is seen. Digital technology was employed plus computer aided detection software (R2) was utilized in interpretation of these images. ??This facility utilizes a reminder system to notify patient's of yearly mammograms. us Shanice Frankel MD IMG MAMMO PROCEDURES Final R esult documented in this encounter Visit Diagnoses Diagnosis Screening breast examination Other screening breast examination documented in this encounter Care Teams Foundation Relations Director Relationship Specialty Start Date End Date Lobo Bazan MD PCP - General 05/27/16 01/11/21 documented as of this encounter
--- OUTSIDE RECORDS SUMMARY | 2024-02-26 03:07 | XMS_ITS | Encounter Summary ---
Author Organization [facility] Healthcare Address [address] [place] [address] Care Team Providers Care Nonprofit Financial Controller Name Role Phone Lobo Bazan MD Primary Care Provider [phone] Lobo Bazan MD Primary Care Provider [phone] Encounter Details Date Type Department Care Team (Late st Contact Info) Description 10/28/2008 12:01 AM CDT - 11/26/2008 11:59 PM CDT Hospital Encounter [facility] Clint Aranda MD [address] [facility] [address] [place] [address] Non-healing surgical wound Social History Tobacco Use Types Packs/Day Years Used Date Smoking Tobacco: Never Assessed Comments Unknown Sex and Gender Information Value Date Recorded Sex Assigned at Not on file 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
--- OUTSIDE RECORDS SUMMARY | 2024-02-26 03:07 | XMS_ITS | Encounter Summary ---
Author Organization [facility] Healthcare Address [address] [place] [address] Care Team Providers Care Poultry Farm Manager Name Role Phone Lobo Bazan MD Primary Care Provider [phone]- [phone] Encounter Details Date Type Department Care Team (Late st Contact Info) Description 08/29/2012 4:21 PM CDT - 08/29/2012 11:59 PM CDT Hospital Encounter [facility] Michel May MD [address] [place] [address] Pre-operative examination Social History Tobacco Use Types Packs/Day Years Used Date Smoking Tobacco: Never Assessed Comments Unknown Sex and Gender Information Value Date Recorded Sex Assigned at Not on file Legal Sex Female 12:36 PM LEHR LOADER Gender Identity Not on file Sexual Orientation [...] Procedure Name Priority Date/Time Associated Diagnosis Comments BLOOD HEMOGLOBIN Routine 08/29/2012 5:20 PM CDT BLOOD HEMATOCRIT Routine 08/29/2012 5:20 PM CDT MICROBIOLOGY SUMMARY Routine 08/29/2012 12:00 AM CDT DISCHARGE LABORATORY CUMULATIVE REPORT Routine 08/29/2012 12:00 AM CDT documented in this encounter Results * Blood hematocrit (08/29/2012 5:20 PM CDT) Hct 38.9 37.0 - 47.0 % HISTORICAL RESULTS Blood specimen (specimen) 08/29/2012 5:20 PM CDT us Michel May MD LAB BLOOD ORDERABLE S Final Result HISTORICAL RESULTS * Blood hemoglobin (08/29/2012 5:20 PM CDT) Hgb 12.2 12.0 - 16.0 g/dl HISTORICAL RESULTS Blood specimen (specimen) 08/29/2012 5:20 PM CDT us Michel May MD LAB BLOOD ORDERABLE S Final Result HISTORICAL RESULTS * Microbiology Summary (08/29/2012 12:00 AM CDT) 08/29/2012 Narrative HISTORICAL RESULTS - 08/31/2012 12:25 AM CDT ? [facility] ?CLINICAL LABORATORIES ? MICROBIOLOGY REPORT PATIENT NAME: ??MARI ORDONEZ ? MED RECORD#: ??[id number] BIRTHDATE: ??1970 ?? AGE: ??41 YRS SEX: F ?PATIENT#: ? [id number] ADMITTING DR: ??MICHEL MAY MD ? ATTENDING DR: ??MICHEL MAY MD ? ACCESSION#: ?? [id number] CREATED: ??08/31/12 ?? 0023 ? ADMIT DATE: ?? 08/29/12 ? MICRO - MISCELLANEOUS STAPHYLOCOCCUS SCREEN ? Collected: 08/29/12 1720 ? Received: 08/29/12 1734 Source: NARES ? Started: 08/29/12 1748 ?Nares ?08/30/12 1337 ? NO METHICILLIN RESISTANT STAPH AUREUS CULTURED ?? END OF CHART us Historical Provider MD LAB MICROBIOLOGY - GENERA L ORDERABLES Final Result HISTORICAL RESULTS * Discharge Laboratory Cumulative Report (08/29/2012 12:00 AM CDT) 08/29/2012 Narrative HISTORICAL RESULTS - 08/31/2012 12:23 AM CDT Patient No: [id number] ? [facility] Patient Name: MARI ORDONEZ ? [facility] Age: 41 YRS ?: 1970 ?Sex:F ?[address] )[phone] ?? Adm Dt: 08/29/2012 ?[place], [place] ??[address] Created: 08/31/2012 ??0023 ?? Pt. Type: R ? Discharge Dt: 08/29/2012 ? Pathologists: Ping Gonzalez MD Admit Attend Dr: MICHEL MAY MD ? BLOOD CELL COUNTS ?Collection Date: ?08/29/12 ?Collection Time: ?1720 ? Ref Range: ?? Units: [12.0-16.0] ??G/DL ? HGB ? 12.2 [37.0-47.0] ??% ?HCT ? 38.9 ? MICRO - MISCELLANEOUS STAPHYLOCOCCUS SCREEN ? Collected: 08/29/12 1720 ? Received: 08/29/12 1734 Source: NARES ? Started: 08/29/12 1748 ?Nares ? FINAL REPORT ?08/30/12 1337 ? NO METHICILLIN RESISTANT STAPH AUREUS CULTURED ?? END OF CHART ? Page: ?? 1 us Historical Provider LAB BLOOD ORDERABLES Juany l Result HISTORICAL RESULTS documented in this encounter Visit Diagnoses Diagnosis Pre-operative examination Unspecified pre-operative examination documented in this encounter Care Teams Poultry Farm Manager Relationship Specialty Start Date End Date Lobo Bazan MD PCP - General 11/17/08 05/03/16 documented as of this encounter
--- OUTSIDE RECORDS SUMMARY | 2024-02-26 03:07 | XMS_ITS | Encounter Summary ---
Author Organization [facility] Healthcare Address [address] [place] [address] Care Team Providers Care Mid Level Game Designer Name Role Phone Lobo Bazan MD Primary Care Provider [phone]- [phone] Encounter Details Date Type Department Care Team (Late st Contact Info) Description 11/11/2008 12:01 AM CDT - 11/11/2008 11:59 PM CDT Hospital Encounter [facility] FLORESCONShanice Beth MD [address] [place] [address] Other and unspecified ovarian cyst; Other screening mammogram Social History Tobacco Use Types Packs/Day Years Used Date Smoking Tobacco: Never Assessed Comments Unknown Sex and Gender Information Value Date Recorded Sex Assigned at Not on file 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
--- OUTSIDE RECORDS SUMMARY | 2024-02-26 03:07 | XMS_ITS | Encounter Summary ---
Author Organization [facility] Healthcare Address [address] [place] [address] Care Team Providers Care Stone Polisher Name Role Phone Lobo Bazan MD Primary Care Provider +1- [phone] Encounter Details Date Type Department Care Team (Late st Contact Info) Description 09/11/2008 12:01 AM CDT - 09/26/2008 11:59 PM CDT Hospital Encounter [facility] Clint Aranda MD [address] [facility] [address] [place] [address] Non-healing surgical wound Social History Tobacco Use Types Packs/Day Years Used Date Smoking Tobacco: Never Assessed Comments Unknown Sex and Gender Information Value Date Recorded Sex Assigned at Not on file 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
--- OUTSIDE RECORDS SUMMARY | 2024-02-26 03:07 | XMS_ITS | Encounter Summary ---
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
--- OUTSIDE RECORDS SUMMARY | 2024-02-26 03:07 | XMS_ITS | Encounter Summary ---
Author Organization [facility] Healthcare Address [address] [place] [address] Care Team Providers Care Pigment Furnace Tender Name Role Phone Lobo Bazan MD Primary Care Provider +1- [phone] Encounter Details Date Type Department Care Team (Late st Contact Info) Description 11/13/2010 3:40 AM CDT - 11/16/2010 12:55 PM CDT Hospital Encounter [facility] Maxwell Messina A Incisional hernia with obstruction; Personal history of venous thrombosis and embolism; Esophageal reflux; Obesity; Arthropathy, lower leg; Body mass index 37.0-37.9, adult; penitentiary current use of anticoagulant therapy Social History Tobacco Use Types Packs/Day Years Used Date Smoking Tobacco: Never Assessed Comments Unknown Sex and Gender Information Value Date Recorded Sex Assigned at Not on file Legal Sex Female 12:36 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 BREAKER Gender Identity Not on file Sexual Orientation Not on file documented as of this encounter Medications at Time of Discharge acetaminophen (TYLENOL) 325 mg tablet Take as directed 0 0 07/14/2008 drospirenone-eth inyl estradiol (PIO, 28,) 3-0.02 mg [...] as of this encounter Visit Diagnoses Diagnosis Incisional hernia with obstruction Personal history of venous thrombosis and embolism Esophageal reflux Obesity Obesity, unspecified Arthropathy, lower leg Unspecified arthropathy, lower leg Body mass index 37.0-37.9, adult Body Mass Index 37.0-37.9, adult penitentiary current use of anticoagulant therapy documented in this encounter Care Teams Pigment Furnace Tender Relationship Specialty Start Date End Date Lobo Bazan MD PCP - General 11/17/08 05/03/16 documented as of this encounter
--- OUTSIDE RECORDS SUMMARY | 2024-02-26 03:07 | XMS_ITS | Encounter Summary ---
Author Organization [facility] Healthcare Address [address] [place] [address] Care Team Providers Care Director Of Corporate Real Estate Name Role Phone Lobo Bazan MD Primary Care Provider +1- [phone] Encounter Details Date Type Department Care Team (Late st Contact Info) Description 01/16/2013 4:37 PM COSMETOLOGIST - 01/16/2013 11:59 PM COSMETOLOGIST Hospital Encounter [facility] FLORESCONShanice Beth MD [address] [place] [address] Other screening mammogram Social History Tobacco Use Types Packs/Day Years Used Date Smoking Tobacco: Never Assessed Alcohol Use Standard Drinks/Week Comments No 0 (1 standard drink = 0.6 oz pur e alcohol) Comments Unknown Sex and Gender Information Value Date Recorded Sex Assigned at Not on file Legal Sex Female 12:36 PM COSMETOLOGIST Gender Identity Not on file Sexual Orientation [...] Procedure Name Priority Date/Time Associated Diagnosis Comments DIGITAL MAMMOGRAPHY Routine 01/16/2013 4 :53 PM COSMETOLOGIST documented in this encounter Results * DIGITAL MAMMOGRAPHY (01/16/2013 4:53 PM COSMETOLOGIST) Anatomical Region Laterality Modality Breast Mammography 01/16/2013 4:53 PM COSMETOLOGIST Narrative 01/17/2013 11:15 AM COSMETOLOGIST MR Screening Mamm Bi ??Acc#: ??[id number] DATE OF EXAM: ??Jan 16 2013 Performed by: jose CLINICAL HISTORY: Screen. RESULT: Two views of each breast correlated to studies dating back through 11/11/08 demonstrates mild fibroglandular density bilaterally. ??No suspicious mass or calcification is seen to suggest mammographic evidence of malignancy. Digital technology was employed plus computer-aided detection software (R2) was utilized in interpretation of these images. ??This facility utilizes a reminder system to notify patients of yearly mammograms. IMPRESSION: 1. NO DEFINITIVE MAMMOGRAPHIC EVIDENCE OF MALIGNANCY. 2. ANNUAL FOLLOW-UP RECOMMENDED. BI-RADS CATEGORY 1 - NEGATIVE Interpreting Physician: ??PETRA ESCALANTE M.D. ??Read on: ??Jan 17 2013 ??6:45A Transcribed by: ??mrr ??On: Jan 17 2013 10:09A Approved Electronically by: ??PETRA ESCALANTE M.D. ??on: ??Jan 17 2013 11:15A Ordering DR: SHANICE WILKINS Attending DR: SHANICE WILKINS Procedure Note Provider, MD Kendrick - 06/30/2016 MR Screening Mamm Bi Acc#: [id number] DATE OF EXAM: Jan 16 2013 Performed by: jose CLINICAL HISTORY: Screen. RESULT: Two views of each breast correlated to studies dating back through11/11/08 demonstrates mild fibroglandular density bilaterally. Nosuspicious mass or calcification is seen to suggest mammographic evidenceof malignancy. Digital technology was employed plus computer-aideddetection software (R2) was utilized in interpretation of these images.This facility utilizes a reminder system to notify patients of yearlymammograms. IMPRESSION: 1. NO DEFINITIVE MAMMOGRAPHIC EVIDENCE OF MALIGNANCY. 2. ANNUAL FOLLOW-UP RECOMMENDED. BI-RADS CATEGORY 1 - NEGATIVE Interpreting Physician: PETRA ESCALANTE M.D. Read on: Jan 17 2013 6:45A Transcribed by: [email or web address] On: Jan 17 2013 10:09A Approved Electronically by: PETRA ESCALANTE M.D. on: Jan 17 2013 11:15A Ordering DR: SHANICE WILKINS Attending : SHANICE WILKINS Historical Provider MD BENJAMIN MAMMO PROCEDURES Juany l Result documented in this encounter Visit Diagnoses Diagnosis Other screening mammogram documented in this encounter Care Teams Director Of Corporate Real Estate Relationship Specialty Start Date End Date Lobo Bazan MD PCP - General 11/17/08 05/03/16 documented as of this encounter
--- OUTSIDE RECORDS SUMMARY | 2024-02-26 03:07 | XMS_ITS | Encounter Summary ---
Author Organization [facility] Healthcare Address [address] [place] [address] Care Team Providers Care Game Farm Supervisor Name Role Phone Wesley Douglass MD Primary Care Provider Reason for Referral * Diagnostic Imaging (Routine) - Closed Specialty Diagnoses / Procedures Referred By Contac t Referred To Contact Diagnoses Screening mammogram, encounter for Procedures Screening Mammogram Bilateral [place] Screening Mammogram, [address] [address] Referral ID Status Reason Start Date Expiration Date Visits Re quested Visits Authorized [id number] Closed 09/21/2023 10/20/2024 1 1 * Diagnostic Imaging (Routine) - Closed Specialty Diagnoses / Procedures Referred By Contac t Referred To Contact Diagnoses Screening mammogram, encounter for Procedures Screening Mammogram Bilateral [place] Screening Mammogram, [address] [address] Referral ID Status Reason Start Date Expiration Date Visits Re quested Visits Authorized [id number] Closed 09/21/2023 10/20/2024 1 1 Reason for Visit * Diagnostic Imaging (Routine) - Closed Specialty Diagnoses / Procedures Referred By Contac t Referred To Contact Diagnoses Screening mammogram, encounter for Procedures Screening Mammogram Bilateral [place] Screening Mammogram, [address] [address] Referral ID Status Reason Start Date Expiration Date Visits Re quested Visits Authorized [id number] Closed 09/21/2023 10/20/2024 1 1 Encounter Details Date Type Department Care Team (Latest Contact Info) Description 11/04/2023 2:00 PM CDT - 11/04/2023 11:59 PM CDT Hospital Encounter [facility] [address] [place] [id number] Screening mammogram, encounter for Discharge Disposition: Discharge to home or self care Social History Tobacco Use Types Packs/Day Years Used Date Smoking Tobacco: Never Assessed Alcohol Use Standard Drinks/Week Comments No 0 (1 standard drink = 0.6 oz pur e alcohol) Comments No Sex and Gender Information Value Date Recorded Sex Assigned at Not on file 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 Sex Female 12:36 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
--- OUTSIDE RECORDS SUMMARY | 2024-02-26 03:07 | XMS_ITS | Encounter Summary ---
Author Organization [facility] Healthcare Address [address] [place] [address] Care Team Providers Care Farm Hand Name Role Phone Lobo Bazan MD Primary Care Provider +[phone]- [phone] Encounter Details Date Type Department Care Team (Late st Contact Info) Description 12/05/2008 12:01 AM CDT - 12/05/2008 11:59 PM CDT Hospital Encounter [facility] Shanice Frankel MD [address] [place] [address] Other specified symptom associated with female genital organs Social History Tobacco Use Types Packs/Day Years Used Date Smoking Tobacco: Never Assessed Comments Unknown Sex and Gender Information Value Date Recorded Sex Assigned at Not on file Legal Sex Female 12:36 PM DIRECTOR OF OPERATIONS Gender Identity Not on file Sexual Orientation [...] of this encounter Visit Diagnoses Diagnosis Other specified symptom associated with female genital organs documented in this encounter Care Teams Farm Hand Relationship Specialty Start Date End Date Lobo Bazan MD PCP - General 11/17/08 05/03/16 documented as of this encounter
--- OUTSIDE RECORDS SUMMARY | 2024-02-26 03:07 | XMS_ITS | Encounter Summary ---
Author Organization [facility] Healthcare Address [address] [place] [address] Care Team Providers Care Manager Of Information Name Role Phone Lobo Bazan MD Primary Care Provider +1- [phone] Encounter Details Date Type Department Care Team (Late st Contact Info) Description 02/08/2011 4:30 PM CAR SHAKEOUT OPERATOR - 02/08/2011 11:59 PM CAR SHAKEOUT OPERATOR Hospital Encounter [facility] Shanice Frankel MD [address] [place] [address] Other screening mammogram Social History Tobacco Use Types Packs/Day Years Used Date Smoking Tobacco: Never Assessed Comments Unknown Sex and Gender Information Value Date Recorded Sex Assigned at Not on file Legal Sex Female 12:36 PM CAR SHAKEOUT OPERATOR Gender Identity Not on file Sexual [...] of this encounter Visit Diagnoses Diagnosis Other screening mammogram documented in this encounter Care Teams Manager Of Information Relationship Specialty Start Date End Date Lobo Bazan MD PCP - General 11/17/08 05/03/16 documented as of this encounter
--- OUTSIDE RECORDS SUMMARY | 2024-02-26 03:07 | XMS_ITS | Encounter Summary ---
Author Organization [facility] Healthcare Address [address] [place] [address] Care Team Providers Care Industrial Hygiene Engineer Name Role Phone Lobo Bazan MD Primary Care Provider +1- [phone] Encounter Details Date Type Department Care Team (Late st Contact Info) Description 08/11/2008 12:39 PM CDT - 08/11/2008 11:59 PM CDT Hospital Encounter [facility] Isidoro Oswald MD [facility] [place] [address] Pain in soft tissues of limb Social History Tobacco Use Types Packs/Day Years Used Date Smoking Tobacco: Never Assessed Comments Unknown Sex and Gender Information Value Date Recorded Sex Assigned at Not on file 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
--- OUTSIDE RECORDS SUMMARY | 2024-02-26 03:07 | XMS_ITS | Encounter Summary ---
Author Organization [facility] Healthcare Address [address] [place] [address] Care Team Providers Care Strategic Marketing Associate Name Role Phone Lobo Bazan MD Primary Care Provider +1- [phone] Encounter Details Date Type Department Care Team (Late st Contact Info) Description 09/29/2008 1:45 PM CDT - 09/29/2008 11:59 PM CDT Hospital Encounter [facility] Clint Aranda MD [address] [facility] [address] [place] [address] Encounter for therapeutic drug monitoring; [facility] current use of anticoagulant therapy Social History Tobacco Use Types Packs/Day Years Used Date Smoking Tobacco: Never Assessed Comments Unknown Sex and Gender Information Value Date Recorded Sex Assigned at Not on file Legal Sex Female 12:36 PM SENIOR SAFETY SUPPORT MANAGER Gender Identity Not on file Sexual [...] as of this encounter Visit Diagnoses Diagnosis Encounter for therapeutic drug monitoring terminal gauger supervisor current use of anticoagulant therapy documented in this encounter Care Teams Strategic Marketing Associate Relationship Specialty Start Date End Date Lobo Bazan MD PCP - General 08/18/08 10/06/08 documented as of this encounter
--- OUTSIDE RECORDS SUMMARY | 2024-02-26 03:07 | XMS_ITS | Encounter Summary ---
Author Organization [facility] Healthcare Address [address] [place] [address] Care Team Providers Care Wall Crane Operator Name Role Phone Lobo Bazan MD Primary Care Provider +1 [phone] Encounter Details Date Type Department Care Team (Late st Contact Info) Description 04/30/2010 2:38 PM FRONT EDGER - 04/30/2010 11:59 PM FRONT EDGER Hospital Encounter [facility] Shanice Frankel MD [address] [place], [place] [id number] Dysmenorrhea Social History Tobacco Use Types Packs/Day Years Used Date Smoking Tobacco: Never Assessed Comments Unknown Sex and Gender Information Value Date Recorded Sex Assigned at Not on file Legal Sex Female 12:36 PM FRONT EDGER Gender Identity Not on file Sexual Orientation [...] as of this encounter Visit Diagnoses Diagnosis Dysmenorrhea documented in this encounter Care Teams Wall Crane Operator Relationship Specialty Start Date End Date Lobo Bazan MD PCP - General 11/17/08 05/03/16 documented as of this encounter
--- OUTSIDE RECORDS SUMMARY | 2024-02-26 03:07 | XMS_ITS | Encounter Summary ---
Author Organization [facility] Healthcare Address [address] [place] [address] Care Team Providers Care Mergers And Acquisitions Attorney Name Role Phone Lobo Bazan MD Primary Care Provider +1- [phone] Encounter Details Date Type Department Care Team (Late st Contact Info) Description 10/04/2012 8:28 AM CDT - 10/04/2012 11:59 PM CDT Hospital Encounter [facility] Michel May MD [address] [place] [id number] Infected postoperative seroma; Other specified surgical operation and procedure causing abnormal patient reaction or later complication; Other acquired absence of organ Social History Tobacco Use Types Packs/Day Years Used Date Smoking Tobacco: Never Assessed Comments Unknown Sex and Gender Information Value Date Recorded Sex Assigned at Not on file Legal Sex Female 12:36 PM FURNACE CLERK Gender Identity Not on file Sexual Orientation [...] Procedure Name Priority Date/Time Associated Diagnosis Comments CT ABDOMEN WO CONTRAST Routine 10/04/2012 9:08 AM CDT documented in this encounter Results * CT Abdomen WO Contrast (10/04/2012 9:08 AM CDT) Anatomical Region Laterality Modality Body N/A Computed Tomogra phy 10/04/2012 9:08 AM CDT Narrative 10/04/2012 9:[address] [place] ?[id number] ??Acc#: ??[id number] DATE OF EXAM: ??Sep ??2012 CLINICAL HISTORY: Recent hernia repair. ??Now has knot above umbilicus. Infected postoperative seroma. RESULT: Serial axial images of the abdomen only obtained with no contrast and correlated to the CT studies from 05/23/12 and 08/23/12. There is minimal atelectasis at the right lung base. ??On axial image 7 there is a 5 mm noncalcified left lower lobe pulmonary nodule laterally that is stable comparing back to a CT from 11/13/10 thus believed to be a benign finding. The evaluation of the solid abdominal organs is limited by the lack of IV contrast. ??The gallbladder has been removed. ??The aorta is normal in caliber. ??The liver, spleen, adrenal glands, kidneys and pancreas are grossly normal. There are no dilated loops of small or large bowel in the abdomen. ??The appendix is normal. ??No intraabdominal adenopathy or free fluid collections are visualized. Surgical changes of a ventral hernia repair are noted. ??Since the previous study the fluid collections with air fluid levels in the ventral wall have resolved. ??There has been improvement in the degree of subcutaneous edema since prior study. There is focal soft tissue density in the anterior subcutaneous central abdominal wall especially near the umbilicus and below it. ??Uncertain how much of this represents residual edematous changes in the wall and how much represents evolving scarring in the subcutaneous abdominal wall. ??There is no definite abscess in the abdominal wall. Surgical suture line is seen associated with the colon the left side. IMPRESSION: 1. ??HISTORY OF VENTRAL HERNIA REPAIR. ??THERE HAS BEEN DECREASED EDEMA WITHIN THE SUBCUTANEOUS MID/INFERIOR ABDOMINAL WALL SINCE THE STUDY FROM 08/23/12 WITH RESOLUTION OF THE FLUID COLLECTIONS WITH AIR FLUID LEVELS NEAR THE PERIUMBILICAL REGION IN THE SUBCUTANEOUS WALL SINCE PRIOR STUDY. ??THERE IS FOCAL SOFT TISSUE THICKENING JUST BELOW AND AT THE LEVEL OF THE UMBILICUS AT MIDLINE. ??UNCERTAIN HOW MUCH OF THAT REPRESENTS RESIDUAL EDEMA AND HOW MUCH EVOLVING SCARRING FROM THE PRIOR SURGICAL PROCEDURE. THERE IS NO ABSCESS SEEN IN THE ANTERIOR ABDOMINAL WALL. 2. ??CHOLECYSTECTOMY. 3. ??SOLID ABDOMINAL ORGANS ARE OTHERWISE GROSSLY NORMAL ALLOWING FOR LIMITATION OF A NONCONTRAST EXAM. Interpreting Physician: ??PETRA ESCALANTE M.D. ??Read on: ??Aug ??2012 11:35A Transcribed by: ??[email or web address] ??On: Sep ??2012 12:03P Approved Electronically by: ??PETRA ESCALANTE M.D. ??on: ??Sep ??2012 ??9:12P Ordering DR: LINDA MAY Attending DR: MICHEL MAY Procedure Note Provider, MD Kendrick - 06/30/[place] [id number] Acc#: [id number] DATE OF EXAM: Oct 04 2012 CLINICAL HISTORY: Recent hernia repair. Now has knot above umbilicus. Infectedpostoperative seroma. RESULT: Serial axial images of the abdomen only obtained with no contrast andcorrelated to the CT studies from 05/23/12 and 08/23/12. There is minimalatelectasis at the right lung base. On axial image 7 there is a 5 mmnoncalcified left lower lobe pulmonary nodule laterally that is stablecomparing back to a CT from 11/13/10 thus believed to be a benign finding.The evaluation of the solid abdominal organs is limited by the lack of IVcontrast. The gallbladder has been removed. The aorta is normal incaliber. The liver, spleen, adrenal glands, kidneys and pancreas aregrossly normal. There are no dilated loops of small or large bowel in theabdomen. The appendix is normal. No intraabdominal adenopathy or freefluid collections are visualized. Surgical changes of a ventral herniarepair are noted. Since the previous study the fluid collections with airfluid levels in the ventral wall have resolved. There has beenimprovement in the degree of subcutaneous edema since prior study. There is focal soft tissue density in the anterior subcutaneous centralabdominal wall especially near the umbilicus and below it. Uncertain howmuch of this represents residual edematous changes in the wall and howmuch represents evolving scarring in the subcutaneous abdominal wall.There is no definite abscess in the abdominal wall. Surgical suture lineis seen associated with the colon the left side. IMPRESSION: 1. HISTORY OF VENTRAL HERNIA REPAIR. THERE HAS BEEN DECREASED EDEMAWITHIN THE SUBCUTANEOUS MID/INFERIOR ABDOMINAL WALL SINCE THE STUDY FROM08/23/12 WITH RESOLUTION OF THE FLUID COLLECTIONS WITH AIR FLUID LEVELSNEAR THE PERIUMBILICAL REGION IN THE SUBCUTANEOUS WALL SINCE PRIOR STUDY.THERE IS FOCAL SOFT TISSUE THICKENING JUST BELOW AND AT THE LEVEL OF THEUMBILICUS AT MIDLINE. UNCERTAIN HOW MUCH OF THAT REPRESENTS RESIDUALEDEMA AND HOW MUCH EVOLVING SCARRING FROM THE PRIOR SURGICAL PROCEDURE.THERE IS NO ABSCESS SEEN IN THE ANTERIOR ABDOMINAL WALL. 2. CHOLECYSTECTOMY. 3. SOLID ABDOMINAL ORGANS ARE OTHERWISE GROSSLY NORMAL ALLOWING FORLIMITATION OF A NONCONTRAST EXAM. Interpreting Physician: PETRA ESCALANTE M.D. Read on: Oct 04 2012 11:35A Transcribed by: [email or web address] On: Oct 04 2012 12:03P Approved Electronically by: PETRA ESCALANTE M.D. on: Oct 04 2012 9:12P Ordering DR: LINDA MAY Attending DR: MICEHL MAY us Historical Provider MD BENJAMIN CT PROCEDURES Final R esult documented in this encounter Visit Diagnoses Diagnosis Infected postoperative seroma Other specified surgical operation and procedure causing abnormal patient reaction or later complication Other acquired absence of organ documented in this encounter Care Teams Mergers And Acquisitions Attorney Relationship Specialty Start Date End Date Lobo Bazan MD PCP - General 11/17/08 05/03/16 documented as of this encounter
--- OUTSIDE RECORDS SUMMARY | 2024-02-26 03:07 | XMS_ITS | Encounter Summary ---
Author Organization [facility] Healthcare Address [address] [place] [address] Care Team Providers Care Jackerman Name Role Phone Lobo Bazan MD Primary Care Provider +1- [phone] Encounter Details Date Type Department Care Team (Late st Contact Info) Description 08/10/2008 4:42 PM CDT - 08/10/2008 8:30 PM CDT Hospital Encounter [facility] Isidoro Oswald MD [facility] [place] [address] Michel Read Pain in soft tissues of limb; Other postprocedural states Social History Tobacco Use Types Packs/Day Years Used Date Smoking Tobacco: Never Assessed Comments Unknown Sex and Gender Information Value Date Recorded Sex Assigned at Not on file 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
--- OUTSIDE RECORDS SUMMARY | 2024-02-26 03:07 | XMS_ITS | Encounter Summary ---
Author Organization [facility] Healthcare Address [address] [place] [address] Care Team Providers Care Yeast Culture Developer Name Role Phone Wesley Douglass MD Primary Care Provider Reason for Referral * Diagnostic Imaging (Routine) - Closed Specialty Diagnoses / Procedures Referred By Contac t Referred To Contact Diagnoses Screening mammogram, encounter for Procedures Screening Mammogram Bilateral W [place] Screening Mammogram, [address] [phone] Referral ID Status Reason Start Date Expiration Date Visits Re quested Visits Authorized [id number] Closed 05/27/2022 06/26/2023 1 1 * Diagnostic Imaging (Routine) - Closed Specialty Diagnoses / Procedures Referred By Contac t Referred To Contact Diagnoses Screening mammogram, encounter for Procedures Screening Mammogram Bilateral [place] Screening Mammogram, [address] [address] Referral ID Status Reason Start Date Expiration Date Visits Re quested Visits Authorized [id number] Closed 05/27/2022 06/26/2023 1 1 Reason for Visit * Diagnostic Imaging (Routine) - Closed Specialty Diagnoses / Procedures Referred By Contac t Referred To Contact Diagnoses Screening mammogram, encounter for Procedures Screening Mammogram Bilateral [place] Screening Mammogram, [address] [address] Referral ID Status Reason Start Date Expiration Date Visits Re quested Visits Authorized [id number] Closed 05/27/2022 06/26/2023 1 1 Encounter Details Date Type Department Care Team (Latest Contact Info) Description 08/01/2022 11:09 AM CDT - 08/01/2022 11:59 PM CDT Hospital Encounter [facility] [address] [place] [id number] Screening mammogram, encounter for Discharge Disposition: Discharge to home or self care Social History Tobacco Use Types Packs/Day Years Used Date Smoking Tobacco: Never Assessed Alcohol Use Standard Drinks/Week Comments No 0 (1 standard drink = 0.6 oz pur e alcohol) Comments No Sex and Gender Information Value Date Recorded Sex Assigned at Not on file 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 A 1 year screening mammogram is recommended. BI-RADS: 1 - Negative. The patient has been or will be contacted. The patient will be entered into a reminder system with a target due date of 1 year for her next mammogram. Electronically signed by: JEREMIAH Monroy 08/01/2022 11:58 AM CDT EXAMINATION: SCREENING MAMMOGRAM BILATERAL W TORREY ORDERING HEALTHCARE PROVIDER: SELF SCREENING MAMMOGRAM HISTORY: Routine screening mammography. COMPARISON: ??02/10/2021, 08/09/2017, 05/04/2016, 03/31/2015. TECHNIQUE: CC and MLO views of both breasts were obtained with digital technique using digital breast tomosynthesis with C view. Computer aided detection was utilized. FINDINGS: DENSITY: The breasts have scattered areas of fibroglandular density. BREASTS: There is no new suspicious finding in either breast on mammogram. us Self Screening Mammogram IMG MAMMO PROCEDURES Fi nal Result documented in this encounter Visit Diagnoses Diagnosis Screening mammogram, encounter for documented in this encounter Care Teams Yeast Culture Developer Relationship Specialty Start Date End Date Wesley Douglass MD [address] [facility] [address] [place] [address] PCP - General 01/12/21 documented as of this encounter
--- OUTSIDE RECORDS SUMMARY | 2024-02-26 03:07 | XMS_ITS | Encounter Summary ---
Author Organization [facility] Healthcare Address [address] [place] [address] Care Team Providers Care Phlebotomist Supervisor/Instructor Name Role Phone Lobo Bazan MD Primary Care Provider [phone]- [phone] Encounter Details Date Type Department Care Team (Late st Contact Info) Description 09/19/2008 8:20 AM CDT - 09/19/2008 11:59 PM CDT Hospital Encounter [facility] Clint Aranda MD [address] [facility] [address] [place] [address] Encounter for therapeutic drug monitoring; detention current use of anticoagulant therapy Social History Tobacco Use Types Packs/Day Years Used Date Smoking Tobacco: Never Assessed Comments Unknown Sex and Gender Information Value Date Recorded Sex Assigned at Not on file 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
--- OUTSIDE RECORDS SUMMARY | 2024-02-26 03:07 | XMS_ITS | Encounter Summary ---
Author Organization [facility] Healthcare Address [address] [place] [address] Care Team Providers Care Patch Finisher Name Role Phone Lobo Bazan MD Primary Care Provider [phone]- [phone] Encounter Details Date Type Department Care Team (Late st Contact Info) Description 11/27/2008 12:01 AM CDT - 12/27/2008 11:59 PM CDT Hospital Encounter [facility] Clint Aranda MD 1 [facility] [address] [place] [address] Non-healing surgical wound Social History Tobacco Use Types Packs/Day Years Used Date Smoking Tobacco: Never Assessed Comments Unknown Sex and Gender Information Value Date Recorded Sex Assigned at Not on file 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
--- OUTSIDE RECORDS SUMMARY | 2024-02-26 03:07 | XMS_ITS | Encounter Summary ---
Author Organization [facility] Healthcare Address [address] [place] [address] Care Team Providers Care Safety Sitter Name Role Phone Wesley Douglass MD Primary Care Provider Reason for Referral * Diagnostic Imaging (Routine) - Closed Specialty Diagnoses / Procedures Referred By Oracio duenas Referred To Contact Diagnoses Encounter for screening mammogram for malignant neoplasm of breast Procedures Screening Mammogram Bilateral W [place] Screening Mammogram, Self [address] [address] Referral ID Status Reason Start Date Expiration Date Visits Re quested Visits Authorized [id number] Closed 01/12/2021 02/11/2022 1 1 SCHOOL ENGLISH TEACHER Reason for Visit * Diagnostic Imaging (Routine) - Closed Specialty Diagnoses / Procedures Referred By Oracio duenas Referred To Contact Diagnoses Encounter for screening mammogram for malignant neoplasm of breast Procedures Screening Mammogram Bilateral [place] Screening Mammogram, Self [address] [address] Referral ID Status Reason Start Date Expiration Date Visits Re quested Visits Authorized [id number] Closed 01/12/2021 02/11/2022 1 1 Encounter Details Date Type Department Care Team (Latest Contact Info) Description 02/10/2021 9:47 AM HIGH SCHOOL ENGLISH TEACHER - 02/10/2021 11:59 PM HIGH SCHOOL ENGLISH TEACHER Hospital Encounter [facility] [address] [place] [id number] Screening Mammogram, Self Encounter for screening mammogram for malignant neoplasm of breast Discharge Disposition: Discharge to home or self care Social History Tobacco Use Types Packs/Day Years Used Date Smoking Tobacco: Never Assessed Alcohol Use Standard Drinks/Week Comments No 0 (1 standard drink = 0.6 oz pur e alcohol) Comments No Sex and Gender Information Value Date Recorded Sex Assigned at Not on file 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 A 1 year screening mammogram is recommended. BI-RADS: 1 - Negative. The patient has been or will be contacted. The patient will be entered into a reminder system with a target due date of 1 year for her next mammogram. Electronically signed by: Javi Malone M.D. Narrative 02/10/2021 10:16 AM HIGH SCHOOL ENGLISH TEACHER EXAMINATION: SCREENING MAMMOGRAM BILATERAL W TORREY ORDERING HEALTHCARE PROVIDER: SELF SCREENING MAMMOGRAM HISTORY: Routine screening mammography. COMPARISON: ??08/09/2017, 05/04/2016, 03/31/2015 TECHNIQUE: CC and MLO views of the bilateral breasts were obtained with digital technique using breast tomosynthesis with C view. Computer aided detection was utilized. FINDINGS: DENSITY: There are scattered fibroglandular elements in the bilateral breasts. BREASTS: There are no suspicious masses, suspicious calcifications, or other suspicious findings in either breast. There has been no suspicious interval change. us Self Screening Mammogram IMG MAMMO PROCEDURES Fi nal Result documented in this encounter Visit Diagnoses Diagnosis Encounter for screening mammogram for malignant neoplasm of breast documented in this encounter Care Teams Safety Sitter Relationship Specialty Start Date End Date Wesley Douglass MD [address] [address] PCP - General 01/12/21 documented as of this encounter
--- OUTSIDE RECORDS SUMMARY | 2024-02-26 03:07 | XMS_ITS | Encounter Summary ---
Author Organization [facility] Healthcare Address [address] [place] [address] Care Team Providers Care Hearing Aid Assembly Supervisor Name Role Phone Lobo Bazan MD Primary Care Provider [phone]- [phone] Encounter Details Date Type Department Care Team (Late st Contact Info) Description 08/21/2012 9:04 AM CDT - 10/15/2012 11:59 PM CDT Hospital Encounter [facility], Michel Dudley MD [address] [place] [phone] Other postoperative infection; Other specified surgical operation and procedure causing abnormal patient reaction or later complication; Place of occurrence, residential institution; Esophageal reflux; Migraine; Family history of ischemic heart disease; Personal history of venous thrombosis and embolism Social History Tobacco Use Types Packs/Day Years Used Date Smoking Tobacco: Never Assessed Comments Unknown Sex and Gender Information Value Date Recorded Sex Assigned at Not on file 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 Admit Date: 08/21/2012 Dict.: Michel Han M.D. Disch. Date: DATE OF SERVICE: 08/21/12 CHIEF COMPLAINT: Abdominal wound. HISTORY OF PRESENT ILLNESS: This is a 41-year-old woman who has had multiple hernia repairs. Her problems started in 2008 when she had a cholecystectomy. This was complicated by an incisional hernia. She had one other operation in 2010 and finally her most recent hernia repair was in April of this year. It was done by Dr. Peralta. He placed a biologic mesh and did a component separation. There was a strangulated segment of bowel, which had to be resected at that time. Since then, the wound had been draining. She has been seeing Dr. Peralta in the clinic for this problem without resolution. He asked the patient to be evaluated at the wound center for this problem. PAST MEDICAL HISTORY: 1) Gastroesophageal reflux disease. 2) Migraine headaches. 3) DVT with pulmonary embolus in 2008. PAST SURGICAL HISTORY: As above, also ovarian cyst operation and tubal ligation, two section. HOME MEDICATIONS: Aspirin, Colace, oxycodone. ALLERGIES: Vicodin, morphine. SOCIAL HISTORY: Denies alcohol, tobacco, drugs. FAMILY HISTORY: Her mother has coronary artery disease. REVIEW OF SYSTEMS: The patient is otherwise in good health. PHYSICAL EXAMINATION: GENERAL: This is an overweight woman in no acute distress. HEENT: She is normocephalic. ABDOMEN: Soft. The majority of the incision is well-healed around her umbilicus. There is a small area of open wound. There is tunneling to a depth of 4.5 cm at 12 o'clock. The external dimensions of the wound are 1.0 x 0.8 x 1.0. Just cephalad to the umbilicus, she does have a bit of erythema and it is tender to palpation. It is also indurated. I cannot find any area of fluctuance. There is no fluid expressed when I examined the wound, although the dressing, which she was wearing was saturated with some seropurulent fluid. ASSESSMENT: A 41-year-old woman with a wound infection and nonhealing surgical wound following a complex ventral hernia repair. I would assume that the fascia is intact based on what I felt when probing the wound. This is most likely infected postop seroma. PLAN: I have ordered a CT scan, which will tell us whether or not there is any fluid collection, which needs to be drained based on the findings of the CT scan. I will decide whether to just treat this with packing versus do a surgical debridement and heal the wound be secondary intention with a wound vac. I also have given her 10 days of Bactrim. Michel Han M.D. XIANG/jolly TD: 08/21/2012 16:48 Authenticated by Michel Han MD On 08/28/2012 09:38:35 AM documented in this encounter Plan of Treatment Not on file documented as of this encounter Visit Diagnoses Diagnosis Other postoperative infection Other specified surgical operation and procedure causing abnormal patient reaction or later complication Place of occurrence, residential institution Esophageal reflux Migraine Migraine, unspecified, without mention of intractable migraine without mention of status migrainosus Family history of ischemic heart disease Personal history of venous thrombosis and embolism documented in this encounter Care Teams Hearing Aid Assembly Supervisor Relationship Specialty Start Date End Date Lobo Bazan MD PCP - General 11/17/08 05/03/16 documented as of this encounter
--- OUTSIDE RECORDS SUMMARY | 2024-02-26 03:07 | XMS_ITS | Encounter Summary ---
Author Organization [facility] Healthcare Address [address] [place] [address] Care Team Providers Care Correction Officer Name Role Phone Lobo Bazan MD Primary Care Provider [phone] Encounter Details Date Type Department Care Team (Late st Contact Info) Description 05/23/2012 11:11 PM CDT - 05/29/2012 4:00 PM CDT Hospital Encounter [facility] Tere Peralta MD [address] [place] [address] Incisional hernia with obstruction; Hypopotassemia; Peritoneal adhesions; Open wound of abdominal wall, anterior; Esophageal reflux; Personal history of allergy to narcotic agent; Encounter for long-term (current) use of aspirin; Surgical operation with anastomosis, bypass, or graft, with natural or artificial tissues used as implant causing abnormal patient reaction, or later complication; Place of occurrence, residential institution Social History Tobacco Use Types Packs/Day Years Used Date Smoking Tobacco: Never Assessed Comments Unknown Sex and Gender Information Value Date Recorded Sex Assigned at Not on file 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 Gender Identity Not on file Sexual Orientation Not on file documented as of this encounter Last Filed Vital Signs Vital Sign Reading Time Taken Comments Blood Pressure 142/80 05/29/2012 7:52 AM CDT Pulse 69 05/29/2012 7:52 AM CDT Temperature - - Respiratory Rate - - Oxygen Saturation - - Inhaled Oxygen Concentration - - Weight 108.4 kg (238 lb 15.7 oz) 05/28/2012 7:09 AM CDT Height 170.2 cm (5' 7.01 ) 05/28/2012 7:09 AM CD T Body Mass Index 37.42 05/28/2012 7:09 AM CDT documented in this encounter Discharge Summaries * Provider, MD Kendrick - 05/29/2012 12:00 AM CDT DISCHARGE SUMMARY Patient: MARI ORDONEZ Account: [id number] Room No: G610-01 : 1970 Patient Type: IP Attend.: Tere Peralta M.D. Admit Date: 05/23/2012 Dict.: Tere Peralta M.D. Disch. Date: DISCHARGE DIAGNOSIS: Recurrent incarcerated strangulated ventral incisional hernia. PROCEDURES PERFORMED: Repair of recurrent incarcerated strangulated ventral incisional hernia with biologic mesh, small bowel resection, bilateral component separation by Dr. Peralta on 05/24/12. Please see full operative report for details of that procedure. DISCHARGE MEDICATIONS: 1. [place]. 2. Colace. FOLLOWUP: Follow up with Dr. Peralta in one week. HOSPITAL COURSE: The patient is a 41-year-old white female who presented to the emergency room complaining of severe abdominal pain. Workup in the emergency department including CAT scan was significant for a recurrent incarcerated ventral incisional hernia. Upon evaluating the patient, it was noted that the patient had a large bulge around the area of her umbilicus. Given this, the inability to reduce this and the significant pain the patient was having I did decide to take her to the operating room emergently for repair of this incarcerated hernia. In the operating room it was noted that the patient did have strangulated small intestine. Given this she did undergo a small bowel resection. She also underwent repair of this hernia with biologic mesh and also a component of separation. Again, please see full operative report for details of that procedure. Postoperatively the patient did well and was transferred back to the floor. Postoperative day #1 the patient was just complaining of the NG tube and some soreness. Given this we did remove the NG tube. She was continued n.p.o. and Toradol was added. On postoperative day #2 the patient did have some nausea and vomiting. We continued her n.p.o. at that time and continued antibiotics. By postoperative day #3 the patient had a bowel movement and felt much better. At this point we were able to get her Thomas out and place her on a clear liquid diet. Postoperative day #4 the patient was having more bowel movements, tolerating clears. We went ahead and moved her to a soft diet. Her potassium was noted to be low and that was replaced. She was out of bed and ambulating. By today, postoperative day #5 the patient feels good, tolerating a soft diet, having normal bowel function. Her abdominal exam is benign. I did remove the Provena wound vac and at this time she does have some superficial necrosis of the skin around the umbilicus. However, otherwise the wound seems to be healing well. I did remove the two JIMMIE drains in the lateral gutter leaving just the midline drain that will be left. She will be sent home on a soft diet, home with her midline drain. We will teach JIMMIE drain care prior to discharge, and she will follow up with me in the office in one week. Tere Peralta M.D. [facility]/mi TD: 05/29/2012 09:23 Authenticated by Robby Peralta MD On 05/30/2012 01:58:09 PM documented in this encounter Medications at Time [...] H&P Notes * Provider, MD Kendrick - 05/23/2012 12:00 AM CDT HISTORY AND PHYSICAL Patient: MARI ORDONEZ Account: [id number] Room No: G610-01 : 1970 Patient Type: IP Attend.: Tere Peralta M.D. Admit Date: 05/23/2012 Dict.: Tere Peralta M.D. Disch. Date: SURGICAL HISTORY AND PHYSICAL REASON FOR ADMISSION Incarcerated ventral incisional hernia with small bowel obstruction. HISTORY OF PRESENT ILLNESS Ms. Ordonez is a 41-year-old white female who presented to the emergency department complaining of a weak history of crampy abdominal pain, nausea and vomiting. The patient reports that she began over the last few days to have severe pain around her umbilicus. The patient reports that she has had similar symptoms to this before when she had an incarcerated ventral incisional hernia in the past. Of note, the patient reports that all this started in 2008 after she underwent laparoscopic cholecystectomy by Dr. Keenan Zacarias. Three days later, she returned to the operating room for an incarcerated hernia at the umbilical trocar site. Postoperatively to that, the patient developed a wound infection and several months later she developed a deep venous thrombosis as well as a pulmonary emboli requiring anticoagulation. The patient reports that she has also had laparoscopic left oophorectomy as well as right tubal ligation. The patient then returned in October of 2010 with an incarcerated ventral incisional hernia. At that time, she was taken to the operating room by for repair of this recurrent hernia. At that time, the bowel did not look ischemic and was reduced back into the abdomen. Given the small bowel obstruction, no mesh was used at that time. The patient reports that over the last few months, she had some milder episodes of pain around the umbilicus as well as crampy abdominal pain; however, nothing this severe. The patient reports that this last episode has lasted a week and seems to be getting worse. The patient reports that she has had decreased bowel function during this time. PAST MEDICAL HISTORY Significant for gastroesophageal reflux disease, as well as some issues with chronic constipation and headaches. CURRENT MEDICATIONS 1. Aspirin. 2. Colace. PAST SURGICAL HISTORY Noted as above with the cholecystectomy complicated by umbilical hernia in June of 2008, also the recurrent ventral incisional hernia repair by Dr. Herman in October of 2010. She has also has had left knee arthroscopy and left laparoscopic oophorectomy as well as a right tubal ligation. ALLERGIES Hydrocodone and Vicodin. SOCIAL HISTORY The patient is , she has two children. She denies any tobacco, alcohol or drug use. FAMILY HISTORY Significant for mother with coronary artery disease. REVIEW OF SYSTEMS CONSTITUTIONAL: In general the patient reports that she is pretty healthy, denies any unintentional weight gain or weight loss. Denies any fevers or chills at home. NEURO: The patient denies any mental status changes, denies any current headaches. OPHTHO: The patient denies any blurred vision or visual changes. ENT: The patient denies any tinnitus or hearing loss. Denies any ear or nasal discharge. Denies any sinusitis, denies sore throat. Denies sputum production. RESPIRATORY: The patient denies any shortness of breath or cough. CARDIOVASCULAR: The patient denies any chest pain, palpitations or arrhythmias. GI: Significant for the last week of crampy abdominal pain, nausea, vomiting, decreased bowel function. : The patient denies any dysuria, frequency or discolored urine. MUSCULOSKELETAL: The patient denies any specific arthralgias or myalgias at this time. SKIN: The patient denies any rash or new skin lesions. PHYSICAL EXAMINATION She is an obese well-developed 41-year-old white female currently in mild acute distress. She is alert and oriented x4. NEUROLOGIC: Cranial nerves II-XII are grossly intact. HEENT: Normocephalic, atraumatic. Pupils equal, round, and reactive to light and accommodation. Extraocular movements are intact. NECK: Supple. No jugular venous distention, no lymphadenopathy. Trachea is midline. CARDIOVASCULAR: Regular rate and rhythm. LUNGS: Clear. ABDOMEN: Obese, soft, slightly distended. She does have tenderness to palpation right around the umbilicus and to the right. There is a fullness and a sensation of a mass in that area. There is some mild voluntary guarding in that area. Bowel sounds are hypoactive. EXTREMITIES: No clubbing, cyanosis or edema. LABORATORY DATA White count is slightly elevated at 11.88. CT scan of the abdomen and pelvis does show mechanical small bowel obstruction at the jejunal-ileal junction secondary to an incarcerated ventral incisional hernia around the umbilicus. There is a moderate amount of stranding of the bowel within the hernia sac and extending into the small bowel mesentery. ASSESSMENT This is a 41-year-old white female with recurrent incarcerated ventral incisional hernia and small bowel obstruction secondary to that. PLAN The patient has been admitted, made NPO, started on IV antibiotics. She will be taken to the operating room emergently for repair of this hernia and possible bowel resection. The risks, benefits and alternatives have been discussed with the patient in full detail and she freely opts to sign the consent to proceed with the procedure. Tere Peralta M.D. [facility]/ TD: 05/24/2012 10:40 Authenticated by Robby Peralta MD On 05/28/2012 03:15:33 PM documented in this encounter Miscellaneous Notes * Op Note - Provider, MD Kendrick - 05/24/2012 12:00 AM CDT OPERATIVE REPORT Patient: MARI ORDONEZ Account: [id number] Room No: G610-01 : 1970 Patient Type: IP Attend.: Tere Peralta M.D. Admit Date: 05/23/2012 Surg.: Tere Peralta M.D. Disch. Date: DATE OF OPERATION: 05/24/12. PREOPERATIVE DIAGNOSES: Recurrent incarcerated ventral incisional hernia, small bowel obstruction. POSTOPERATIVE DIAGNOSES: Recurrent incarcerated ventral incisional hernia, small bowel obstruction. Noted strangulated small bowel and also loss of abdominal domain. PROCEDURES PERFORMED 1. Exploratory laparotomy. 2. Extensive lysis of adhesions. 3. Small bowel resection. 4. Bilateral separation of components with medialization of the rectus. 5. Repair of recurrent strangulated incarcerated ventral incisional hernia with 10 X 15 cm Matrix biologic surgical graft. ANESTHESIA: General anesthesia. FINDINGS: Strangulated small intestine within incarcerated sac. SPECIMEN: Small bowel resection hernia sac. ESTIMATED BLOOD LOSS: 150. COMPLICATIONS: None. DRAINS: 15 Nauruan Zeeshan drains left in bilateral lateral gutters as well as overlying the underlay graft repair between rectus repair and graft repair in the underlay position. CONDITION: Stable. INDICATIONS: The patient is a pleasant 41-year-old white female that presented to the emergency department complaining of a one week history of severe abdominal pain, nausea, vomiting, and decreased bowel function. Workup in the emergency department including CAT scan was significant for an incarcerated ventral incisional hernia. Of note, the patient has noted hernia in this area, and it has been repaired X [address] Herman. Given her symptomatology the patient was admitted to my service and after evaluating the patient it was decided to bring the patient to the operating room for exploration. The risks, benefits, and alternatives were discussed with the patient in full detail, and she freely opted to sign the consent to proceed with the procedure. PROCEDURE: The patient was taken to the operating room and placed in the supine position after adequate induction of general anesthesia the patient was prepped and draped in the normal sterile fashion. Time-out was done to verify the patient's identity as well as the procedure being performed. I began by making an incision in the curvilinear incision in the infraumbilical region. This was carried down to the fascia. At this point I was able to identify a large fascial defect in this area, however, there were noted to be multiple defects in the upper midline as well. It was also noted once getting into the hernia sac that there was noted small very edematous small bowel, some of which did look to be very dusky in appearance. Given this it was decided to extend the incision superiorly along the midline. At this time I did find two other small midline hernias. The fascia was then opened. Upon doing this it was noted that the patient had extensive adhesions to the midline in the previous hernia and in opening this area up where there was some strangulation there was an iatrogenic enterotomy made. At this point I did go ahead and free up and do an extensive lysis of adhesions especially the area that did look dusky. Once this was done the extensive lysis of adhesions took approximately 90 minutes to free up the entirety of the small bowel. Once this was done it was decided to go ahead and do a small bowel resection of the involved small bowel and the hernia sac as well as the iatrogenic perforation X 2. I went ahead and resected the small bowel, and it will be sent to pathology for further review. I went ahead and then and ran the small bowel to the ligament of Treitz proximally all the way to the distal terminal ileum going into the cecum. No other abnormality was noted in the small bowel. I then proceeded to do a primary stapled side to side functional end to end anastomosis with the 55 KILEY as well as ATA60 stapler. The edges of the staple lines were then oversewn with 3-0 silk sutures. The mesenteric defect was closed with 3-0 silk suture. Once this was done the abdomen was copiously irrigated. At this point once connecting all the defects and the fascia I tried to bring the fascia back together in the midline. There was noted to be a loss of domain, and I was unable to get the fascia back in the midline or the rectus. At this point it was decided to do a unilateral component separation first beginning on the right side. I was able to create a tunnel to just lateral to the rectus muscle about 2 cm. Incision was then made onto the anterior fascia. Getting into this avascular plane I went ahead and used Metzenbaum scissors to take this to go ahead and separate the anterior fascia all the way up to the level of the last rib superiorly and then inferiorly to the level of the pubic tubercle. This did give us nice relief on the right, however, I was still unable to completely bring the midline back together. At this point I went ahead and completed the bilateral component separation by going to the let side again creating a tunnel to the lateral to the rectus muscle about 2 cm. At this point the anterior fascia was again incised. Once into the avascular plane this was carried again superiorly with Metzenbaum scissors to the level of the left rib and then inferiorly again to the pubic tubercle. Once the bilateral component separation was done I was able to easily bring the rectus to the midline. At this point I went ahead and cleared off the fascial defect. I then used given the perforation as well as the strangulated small intestine I went ahead and used a biologic surgical graft using matrix. I used a 10 X 15 cm piece of matrix to get a good overlap on the defect. This gave us an approximately 3-5 cm overlap of the entire defect. Once this was sutured into place in the underlay position using #1 Prolene sutures this was noted to be tension free and in good position. At this point I went ahead and placed 15 Nauruan white drain on top of the under layer. I then went ahead and closed the midline over the repair using an 0 PDS loop suture. Again, the midline and rectus muscle were easily closed once we did the bilateral component separation. Once this was done I went ahead and left two additional drains in the lateral gutters where we had performed the component separation. I then coiled the subcutaneous tissue back down to the fascia with 0 Vicryl suture. The umbilicus was also tacked down to the fascia with an 0 Vicryl interrupted suture. 3-0 Vicryl suture was then used to close the subcutaneous tissue. 4-0 Monocryl sutures were then used to close the subcuticular fashion to close the skin. A Provena wound vac was then placed on the wound. The patient tolerated the procedure well and was extubated in the operating room and postoperatively will be transferred to the recovery room in stable condition. Tere Peralta M.D. [facility]/[place] TD: 05/24/2012 15:02 Authenticated by Robby Peralta MD On 05/28/2012 03:15:36 PM documented in this encounter Plan of Treatment Not on file documented as of this encounter Procedures Procedure Name Priority Date/Time Associated Diagnosis Comments SERUM BASIC METABOLIC PANEL Routine 05/29/2012 4:18 AM CDT BLOOD WBC CELL MORPHOLOGIC EXAM, AUTO Routine 05/29/2012 4:18 AM CDT BLOOD CELL COUNT (CBC) Routine 3 4:18 AM CDT DISCHARGE LABORATORY CUMULATIVE REPORT Routine 05/29/2012 12:00 AM CDT SERUM BASIC METABOLIC PANEL Routine 05/28/2012 4:30 AM CDT BLOOD WBC CELL MORPHOLOGIC EXAM, AUTO Routine 05/28/2012 4:30 AM CDT BLOOD CELL COUNT (CBC) Routine 3 4:30 AM CDT SERUM BASIC METABOLIC PANEL Routine 05/27/2012 5:39 AM CDT BLOOD WBC CELL MORPHOLOGIC EXAM, AUTO Routine 05/27/2012 5:39 AM CDT BLOOD CELL COUNT (CBC) Routine 3 5:39 AM CDT SERUM BASIC METABOLIC PANEL Routine 05/26/2012 5:09 AM CDT BLOOD WBC CELL MORPHOLOGIC EXAM, AUTO Routine 05/26/2012 5:09 AM CDT BLOOD CELL COUNT (CBC) Routine 3 5:09 AM CDT SERUM BASIC METABOLIC PANEL Routine 05/25/2012 3:54 AM CDT BLOOD WBC CELL MORPHOLOGIC EXAM, AUTO Routine 05/25/2012 3:54 AM CDT BLOOD CELL COUNT (CBC) Routine 3 3:54 AM CDT SURGICAL PATHOLOGY REPORT Routine 05/24/2012 12:[address] ABDOMEN PELVIS W CONTRAST Routine 05/23/2012 10:55 PM CDT URINE MICROSCOPY Routine 05/23/2012 10:4 4 PM CDT URINALYSIS Routine 05/23/2012 10:44 PM CDT SERUM LIPASE Routine 05/23/2012 9:39 PM CDT SERUM COMPREHENSIVE METABOLIC PANEL Routine 05/23/2012 9:39 PM CDT SERUM CHORIONIC GONADOTROPIN (HCG) IDENTIFICATION Routine 05/23/2012 9:39 PM CDT SERUM AMYLASE Routine 05/23/2012 9:39 PM CDT BLOOD WBC CELL MORPHOLOGIC EXAM, AUTO Routine 05/23/2012 9:39 PM CDT BLOOD CELL COUNT (CBC) Routine 3 9:39 PM CDT documented in this encounter Results * (ABNORMAL) Serum basic metabolic panel (05/29/2012 4:18 AM CDT) BUN 10.0 6.0 - 23.0 mg/dl HISTORICAL RESULTS Sodium 139 134 - 143 mmol/L HISTORICAL RESULTS Potassium, sr 3.2(L) 3.4 - 5.0 mmol/L HISTORICAL RESULTS Chloride 107 99 - 108 mmol/L HISTORICAL RESULTS CO2 24 23 - 32 mmol/L HISTORICAL RESULTS Glucose, fasting 92 70 - 110 mg/dl HISTORICAL RESULTS Creatinine 0.84 0.60 - 1.30 mg/dl HISTORICAL RESULTS Comment: eGFR: >70 ml/min/1.73sq.m if non -[place] Citizen. eGFR: >70 ml/min/1.73sq.m if -[place] Citizen. AVE GFR for 40-49 yr. age group: ??99 ml/min/1.73sq.m Calculated using MDRD Equation BUN/creat ratio 12 10 - 20 HIST ORICAL RESULTS A. gap 11 7 - 14 mmol/L HISTORICAL RESULTS Osmo, calc 276 275 - 295 mOsm/kg HISTORICAL RESULTS Calcium 7.7(L) 8.6 - 9.8 mg/dl HISTORICAL RESULTS Serum 05/29/2012 4:18 AM CDT Tere Peralta MD LAB BLOOD ORDERABLES Final [facility] Performing Organization Address [facility] de Phone Number HISTORICAL RESULTS * (ABNORMAL) Blood cell count (CBC) (05/29/2012 4:18 AM CDT) WBC 9.3 4.0 - 10.5 K/cumm HISTORICAL RESULTS Hgb 9.8(L) 12.0 - 16.0 g/dl HISTORICAL RESULTS RBC 3.38(L) 4.20 - 5.40 M/cumm HISTORICAL RESULTS Hct 30.8(L) 37.0 - 47.0 % HISTORICAL RESULTS MCV 91.1 77.0 - 97.0 fl HISTORICAL RESULTS MCH 29.0 23.0 - 34.0 pg HISTORICAL RESULTS MCHC 31.8(L) 32.0 - 36.0 g/dl HISTORICAL RESULTS Rdw 14.1 11.5 - 14.5 % HISTORICAL RESULTS Platelets 283 150 - 451 K/cumm HISTORICAL RESULTS MPV 10.3 7.4 - 10.4 fl HISTORICAL RESULTS Blood specimen (specimen) 05/29/2012 4:18 AM CDT Tere Peralta MD LAB BLOOD ORDERABLES Final [facility] Performing Organization Address [facility] de Phone Number HISTORICAL RESULTS * (ABNORMAL) Blood WBC cell morphologic exam, auto (05/29/2012 4:18 AM CDT) Lymphocytes 13.0(L) 25.0 - 33.0 % HISTORICAL RESULTS Monos 8.7 1.0 - 13.0 % HISTORICAL RESULTS Neutrophils 73.4(H) 54.0 - 69.0 % HISTORICAL RESULTS Eosinophils 4.3 0.0 - 10.0 % HISTORICAL RESULTS Basophils 0.2 0.0 - 1.0 % HISTORICAL RESULTS Immature granulocytes 0.4 0.0 - 1.0 % HISTORICAL RESULTS Lymphocytes, abs 1.2 1.2 - 3.4 K/cumm HISTORICAL RESULTS Monocytes, absolute 0.8(L) 1.1 - 1.9 K/cumm HISTORICAL RESULTS Neutrophils, abs 6.8(H) 1.4 - 6.5 K/cumm HISTORICAL RESULTS Eosinophils, abs 0.4 0.0 - 0.7 cells/cum m HISTORICAL RESULTS Basophils, abs 0.0 0.0 - 0.2 K/cumm HISTORICAL RESULTS Immature granulocyte, abs 0(H) 0 - 0 K/cumm HISTORICAL RESULTS Blood specimen (specimen) 05/29/2012 4:18 AM CDT us Tere Peralta MD LAB BLOOD ORDERABLES Final Re sult HISTORICAL RESULTS * Discharge Laboratory Cumulative Report (05/29/2012 12:00 AM CDT) 05/29/2012 Narrative HISTORICAL RESULTS - 05/30/2012 12:24 AM CDT Patient No: [id number] ? [facility] Patient Name: MARI ORDONEZ ? [facility] Healthcare Age: 41 YRS ?: 1970 ?Sex:F ?[address] )[id number] ?? Adm Dt: 05/23/2012 ?[place], [place] ??[id number] Created: 05/30/2012 ??0024 ?? Pt. Type: I ? Discharge Dt: 05/29/2012 ? Pathologists: Ping Gonzalez MD Admit Attend Dr: TERE PERALTA MD ? BLOOD CELL COUNTS ?Collection Date: ?05/29/12 ? 05/28/12 ?Collection Time: ?0418 ? 0430 ? Ref Range: ?? Units: [4.00-10.50] /CMM ? WBC X 10^3 ?9.30 ? 8.63 [4.20-5.40] ??/CMM ? RBC X 10^6 ?3.38 L ? 3.32 L [12.0-16.0] ??G/DL ? HGB ?9.8 L ?9.5 L [37.0-47.0] ??% ?HCT ? 30.8 L ? 30.6 L [77.0-97.0] ??FL ? MCV ? 91.1 ? 92.2 [23.0-34.0] ??PG ? MCH ? 29.0 ? 28.6 [32.0-36.0] ??% ?MCHC ?31.8 L ? 31.0 L [11.5-14.5] ??% ?RDW ? 14.1 ? 14.6 H [150-451] ?? /CMM ? PLT X 10^3 ? 283 ?300 ?Collection Date: ?05/27/12 ? 05/26/12 ?Collection Time: ?0539 ? 0509 ? Ref Range: ?? Units: [4.00-10.50] /CMM ? WBC X 10^3 ? 16.13 H ?20.11 H [4.20-5.40] ??/CMM ? RBC X 10^6 ?3.83 L ? 4.33 [12.0-16.0] ??G/DL ? HGB ? 11.1 L ? 12.6 [37.0-47.0] ??% ?HCT ? 35.0 L ? 39.1 [77.0-97.0] ??FL ? MCV ? 91.4 ? 90.3 [23.0-34.0] ??PG ? MCH ? 29.0 ? 29.1 [32.0-36.0] ??% ?MCHC ?31.7 L ? 32.2 [11.5-14.5] ??% ?RDW ? 14.3 ? 14.1 [791-224] ?? /CMM ? PLT X 10^3 ? 307 ?307 Footnotes and Symbols: L = Low, H = High ?? CONTINUED ?Page: ?? 1 Patient No: [id number] ? [facility] Patient Name: MARI ORDONEZ ? [facility] Healthcare Age: 41 YRS ?: 1970 ?Sex:F ?[address] )[phone] ?? Adm Dt: 05/23/2012 ?[place] ??[id number] Created: 05/30/2012 ??0024 ?? Pt. Type: I ? Discharge Dt: 05/29/2012 ? Pathologists: Ping Gonzalez MD Admit Attend Dr: TERE PERALTA MD ? BLOOD CELL COUNTS ?Collection Date: ?05/25/12 ? 05/23/12 ?Collection Time: ?0354 ? 2139 ? Ref Range: ?? Units: [4.00-10.50] /CMM ? WBC X 10^3 ? 15.75 H ?11.88 H [4.20-5.40] ??/CMM ? RBC X 10^6 ?4.43 ? 4.98 [12.0-16.0] ??G/DL ? HGB ? 12.9 ? 14.5 [37.0-47.0] ??% ?HCT ? 39.5 ? 43.9 [77.0-97.0] ??FL ? MCV ? 89.2 ? 88.2 [23.0-34.0] ??PG ? MCH ? 29.1 ? 29.1 [32.0-36.0] ??% ?MCHC ?32.7 ? 33.0 [11.5-14.5] ??% ?RDW ? 13.8 ? 13.1 [150-451] ?? /CMM ? PLT X 10^3 ? 292 ?323 ?BLOOD CELL DIFFERENTIAL ?Collection Date: ?05/29/12 ? 05/28/12 ?Collection Time: ?0418 ? 0430 ? Ref Range: ?? Units: [54.0-69.0] ??% ?NEUTROPHILS ? 73.4 H ? 68.4 [25.0-33.0] ??% ?LYMPHOCYTES ? 13.0 L ? 20.2 L [1.0-13.0] ??% ?MONOCYTES ?8.7 ?7.1 [0.0-10.0] ??% ?EOSINOPHILS ?4.3 ?3.8 [0.0-1.0] ?? % ?BASOPHILS ?0.2 ?0.2 ? /CMM ? A LYMPHOCYTE ? 1.2 ?1.7 [0.0-1.0] ?? % ?IMM GRAN % ? 0.4 ?0.3 [0.00-0.02] ??/CMM ? A IMM GRAN ?0.40 H ? 0.30 H [1.1-1.9] ?? /CMM ? A MONOCYTE ? 0.8 L ?0.6 L [1.4-6.5] ?? /CMM ? A NEUTROPHIL ? 6.8 H ?5.9 [0.0-0.7] ?? /CMM ? A EOSINOPHIL ? 0.4 ?0.3 [0.0-0.2] ?? /CMM ? A BASOPHIL ? 0.0 ?0.0 Footnotes and Symbols: L = Low, H = High ?? CONTINUED ?Page: ?? 2 Patient No: [id number] ? [facility] Patient Name: ORDONEZ, MARI D ? [facility] Age: 41 YRS ?: 1970 ?Sex:F ?[address] )[phone] ?? Adm Dt: 05/23/2012 ?[place] ??[id number] Created: 05/30/2012 ??0024 ?? Pt. Type: I ? Discharge Dt: 05/29/2012 ? Pathologists: Ping Gonzalez MD Admit Dr. Page Dr: TERE PERALTA MD ?BLOOD CELL DIFFERENTIAL ?Collection Date: ?05/27/12 ? 05/26/12 ?Collection Time: ?0539 ? 0509 ? Ref Range: ?? Units: [54.0-69.0] ??% ?NEUTROPHILS ? 89.0 H ? 91.3 H [25.0-33.0] ??% ?LYMPHOCYTES ?5.8 L ?4.5 L [1.0-13.0] ??% ?MONOCYTES ?4.2 ?3.9 [0.0-10.0] ??% ?EOSINOPHILS ?0.6 ?0.1 [0.0-1.0] ?? % ?BASOPHILS ?0.1 ?0.0 ? /CMM ? A LYMPHOCYTE ? 0.9 L ?0.9 L [0.0-1.0] ?? % ?IMM GRAN % ? 0.3 ?0.2 [0.00-0.02] ??/CMM ? A IMM GRAN ?0.50 H ? 0.40 H [1.1-1.9] ?? /CMM ? A MONOCYTE ? 0.7 L ?0.8 L [1.4-6.5] ?? /CMM ? A NEUTROPHIL ?14.4 H ? 18.3 H [0.0-0.7] ?? /CMM ? A EOSINOPHIL ? 0.1 ?0.0 [0.0-0.2] ?? /CMM ? A BASOPHIL ? 0.0 ?0.0 ?Collection Date: ?05/25/12 ? 05/23/12 ?Collection Time: ?0354 ? 2139 ? Ref Range: ?? Units: [54.0-69.0] ??% ?NEUTROPHILS ? 89.5 H ? 81.0 H [25.0-33.0] ??% ?LYMPHOCYTES ?5.6 L ? 12.5 L [1.0-13.0] ??% ?MONOCYTES ?4.6 ?5.6 [0.0-10.0] ??% ?EOSINOPHILS ?0.0 ?0.5 [0.0-1.0] ?? % ?BASOPHILS ?0.1 ?0.2 ? /CMM ? A LYMPHOCYTE ? 0.9 L ?1.5 [0.0-1.0] ?? % ?IMM GRAN % ? 0.2 ?0.2 [0.00-0.02] ??/CMM ? A IMM GRAN ?0.30 H ? 0.20 H [1.1-1.9] ?? /CMM ? A MONOCYTE ? 0.7 L ?0.7 L [1.4-6.5] ?? /CMM ? A NEUTROPHIL ?14.1 H ?9.6 H [0.0-0.7] ?? /CMM ? A EOSINOPHIL ? 0.0 ?0.1 [0.0-0.2] ?? /CMM ? A BASOPHIL ? 0.0 ?0.0 Footnotes and Symbols: L = Low, H = High ?? CONTINUED ?Page: ?? 3 Patient No: [id number] ? [facility] Patient Name: MARI ORDONEZ ? [facility] Age: 41 YRS ?: 1970 ?Sex:F ?[address] )[phone] ?? Adm Dt: 05/23/2012 ?[place] ??[id number] Created: 05/30/2012 ??0024 ?? Pt. Type: I ? Discharge Dt: 05/29/2012 ? Pathologists: Ping Gonzalez MD Admit Attend Dr: TERE PERALTA MD ? GENERAL CHEMISTRY ?Collection Date: ?05/29/12 ? 05/28/12 ?Collection Time: ?0418 ? 0430 ? Ref Range: ?? Units: [134-143] ?? MMOL/L ? SODIUM ? 139 ?143 [3.4-5.0] ?? MMOL/L ? POTASSIUM ?3.2 L ?3.2 L [99.0-108.0] MMOL/L ? CHLORIDE ? 107.0 ?111.0 H [23.0-32.0] ??MMOL/L ? TOTAL CO2 ? 23.8 ? 25.9 ?? [7-14] ?MMOL/L ? ANION GAP ? 11 ?9 ??[70-110] ?? MG/DL ?GLUCOSE FASTING ? 92 ? 93 [275-295] ?? MOSM/K ? CALCULATED OSMO ?276 ?286 [8.6-9.8] ?? MG/DL ?CALCIUM ?7.7 L ?7.9 L [6.0-23.0] ??MG/DL ?BUN ? 10.0 ? 16.0 ??[10-20] ? B/C RATIO ? 12 ? 19 [0.60-1.30] ??MG/DL ?CREATININE ?0.84 f ? 0.84 f ?05/29/128 eGFR: >70 ml/min/1.73sq.m if non -[place] Citizen. eGFR: >70 ml/min/1.73sq.m if -[place] Citizen. AVE GFR for 40-49 yr. age group: ??99 ml/min/1.73sq.m Calculated using MDRD Equation FOOTNOTE ADDED ON ?? 05/29/12 ?? AT 0517 BY 999 ?05/28/12 0430 eGFR: >70 ml/min/1.73sq.m if non -[place] Citizen. eGFR: >70 ml/min/1.73sq.m if -[place] Citizen. AVE GFR for 40-49 yr. age group: ??99 ml/min/1.73sq.m Calculated using MDRD Equation FOOTNOTE ADDED ON ?? 05/28/12 ?? AT 0513 BY 999 Footnotes and Symbols: L = Low, H = High, f = Footnote ?? CONTINUED ?Page: ?? 4 Patient No: [id number] ? [facility] Patient Name: MARI ORDONEZ ? [facility] Age: 41 YRS ?: 1970 ?Sex:F ?[address] )[phone] ?? Adm Dt: 05/23/2012 ?[place], [place] ??[address] Created: 05/30/2012 ??0024 ?? Pt. Type: I ? Discharge Dt: 05/29/2012 ? Pathologists: Ping Gonzalez MD Admit Dr. Camilo Foreman: TERE PERALTA MD ? GENERAL CHEMISTRY ?Collection Date: ?05/27/12 ? 05/26/12 ?Collection Time: ?0539 ? 0509 ? Ref Range: ?? Units: [134-143] ?? MMOL/L ? SODIUM ? 145 H ?143 [3.4-5.0] ?? MMOL/L ? POTASSIUM ?3.5 ?3.6 [99.0-108.0] MMOL/L ? CHLORIDE ? 112.0 H ?109.0 H [23.0-32.0] ??MMOL/L ? TOTAL CO2 ? 23.8 ? 24.4 ?? [7-14] ?MMOL/L ? ANION GAP ? 13 ? 13 ??[70-110] ?? MG/DL ?GLUCOSE FASTING ?102 ?130 H [275-295] ?? MOSM/K ? CALCULATED OSMO ?290 ?287 [8.6-9.8] ?? MG/DL ?CALCIUM ?8.4 L ?8.3 L [6.0-23.0] ??MG/DL ?BUN ? 16.0 ? 14.0 ??[10-20] ? B/C RATIO ? 16 ? 13 [0.60-1.30] ??MG/DL ?CREATININE ?0.98 f ? 1.04 f ?05/27/12 0539 eGFR:66 ml/min/1.73sq.m if non -[place] Citizen. eGFR: >70 ml/min/1.73sq.m if -[place] Citizen. AVE GFR for 40-49 yr. age group: ??99 ml/min/1.73sq.m Calculated using MDRD Equation FOOTNOTE ADDED ON ?? 05/27/12 ?? AT 0647 BY 999 ?05/26/12 0509 eGFR:61 ml/min/1.73sq.m if non -[place] Citizen. eGFR: >70 ml/min/1.73sq.m if -[place] Citizen. AVE GFR for 40-49 yr. age group: ??99 ml/min/1.73sq.m Calculated using MDRD Equation FOOTNOTE ADDED ON ?? 05/26/12 ?? AT 0630 BY 999 Footnotes and Symbols: L = Low, H = High, f = Footnote ?? CONTINUED ?Page: ?? 5 Patient No: [id number] ? [facility] Patient Name: MARI ORDONEZ ? [facility] Age: 41 YRS ?: 1970 ?Sex:F ?[address] )[phone] ?? Adm Dt: 05/23/2012 ?[place] ??[id number] Created: 05/30/2012 ??0024 ?? Pt. Type: I ? Discharge Dt: 05/29/2012 ? Pathologists: Ping Gonzalez MD Admit Attend Dr: TERE PERALTA MD ? GENERAL CHEMISTRY ?Collection Date: ?05/25/12 ? 05/23/12 ?Collection Time: ?0354 ? 2139 ? Ref Range: ?? Units: [134-143] ?? MMOL/L ? SODIUM ? 141 ?141 [3.4-5.0] ?? MMOL/L ? POTASSIUM ?3.4 ?4.1 [99.0-108.0] MMOL/L ? CHLORIDE ? 108.0 ?104.0 [23.0-32.0] ??MMOL/L ? TOTAL CO2 ? 25.5 ? 27.8 ?? [7-14] ?MMOL/L ? ANION GAP ? 11 ? 13 ??[70-110] ?? MG/DL ?GLUCOSE FASTING ?123 H ?113 H [275-295] ?? MOSM/K ? CALCULATED OSMO ?281 [6.4-8.0] ?? G/DL ? TOTAL PROTEIN ? 7.9 [3.3-4.5] ?? G/DL ? ALBUMIN ? 3.8 [1.1-1.8] ?A/G RATIO ? 0.9 L [8.6-9.8] ?? MG/DL ?CALCIUM ?7.6 L ?9.2 [0.0-1.1] ?? MG/DL ?BILI TOTAL ?0.6 ??[44-125] ?? U/L ?ALK PHOS ?105 ?? [4-32] ?U/L ?AST(SGOT) ?15 ??[16-66] ?U/L ?ALT(SGPT) ?33 [6.0-23.0] ??MG/DL ?BUN ?8.0 ? 11.0 ??[10-20] ? B/C RATIO ?7 L ? 10 [0.60-1.30] ??MG/DL ?CREATININE ?1.10 f ? 1.12 f ?05/25/12 0354 eGFR:58 ml/min/1.73sq.m if non -[place] Citizen. eGFR:70 ml/min/1.73sq.m if -[place] Citizen. AVE GFR for 40-49 yr. age group: ??99 ml/min/1.73sq.m Calculated using MDRD Equation FOOTNOTE ADDED ON ?? 05/25/12 ?? AT 0503 BY 999 ?05/23/12 2139 eGFR:56 ml/min/1.73sq.m if non -[place] Citizen. eGFR:68 ml/min/1.73sq.m if -[place] Citizen. AVE GFR for 40-49 yr. age group: ??99 ml/min/1.73sq.m Calculated using MDRD Equation FOOTNOTE ADDED ON ?? 05/23/12 ?? AT 2217 BY 999 Footnotes and Symbols: L = Low, H = High, f = Footnote ?? CONTINUED ?Page: ?? 6 Patient No: [id number] ? [facility] Patient Name: MARI ORDONEZ ? [facility] Age: 41 YRS ?: 1970 ?Sex:F ?[address] )[phone] ?? Adm Dt: 05/23/2012 ?[place], [place] ??[address] Created: 05/30/2012 ??0024 ?? Pt. Type: I ? Discharge Dt: 05/29/2012 ? Pathologists: Ping Gonzalez MD Admit Attend Dr: TERE PERALTA MD ? GENERAL CHEMISTRY ?Collection Date: ?05/25/12 ? 05/23/12 ?Collection Time: ?0354 ? 2139 ? Ref Range: ?? Units: ??[25-115] ?? U/L ?AMYLASE ?49 f ??[70-400] ?? U/L ?LIPASE ?103 ? HORMONES ?Collection Date: ?05/23/12 ?Collection Time: ?2139 ? Ref Range: ?? Units: [NEGATIVE] ?HCG QUALITATIVE ? NEGATIVE Footnotes and Symbols: f = Footnote AMYLASE (11/17/10 -- Current) PLEASE SEE NEW REFERENCE RANGE ?? CONTINUED ?Page: ?? 7 Patient No: [id number] ? [facility] Patient Name: MARI ORDONEZ ? [facility] Age: 41 YRS ?: 1970 ?Sex:F ?[address] )[phone] ?? Adm Dt: 05/23/2012 ?[place] ??[id number] Created: 05/30/2012 ??0024 ?? Pt. Type: I ? Discharge Dt: 05/29/2012 ? Pathologists: Ping Gonzalez MD Admit Dr. Page Dr: TERE PERALTA MD ?S Carmen Mcdermott I Venkat Rowe ?P A T H O L O G Y ?R E P O R T ? Case #: ?[id number] ? Date: 05/24/12 SPECIMEN SOURCE: ? Small bowel. CLINICAL INFORMATION AND IMPRESSION: ? Ventral hernia/incisional incarcerated. ??Repair of incisional ventral ? incarcerated hernia with Xen Matrix graft, small bowel resection, lysis of ? adhesions and bilateral component separation. GROSS DESCRIPTION: ? The specimen is received in formalin labeled Mari Ordonez and bowel . It ? is a segment of somewhat tortuous small bowel, with attached mesentery, 37 cm ? in length by approximately 3.0 cm in average diameter. ??Two areas of ? hemorrhagic/tortuous/dusky thinning are present, one approximately 6.5 cm from ? one end (unmarked) and the other approximately 5 cm from the opposite end. ? These areas show mucosal thinning, with virtual perforation of the wall, with ? associated firm serosal fibrosis, consistent with the history of an ? incarcerated ventral hernia. Upon opening, the mucosa is generally light diop, ? granular, and unremarkable save for the area of incarceration/thinning. Also ? received in the container is a second tubular fragment of small bowel, ? externally unremarkable and 6.5 cm in length. The diameter is unremarkable. ? Upon opening, the mucosa is granular and unremarkable. ??Corporate Responsibility Officer ? sections embedded in six cassettes, with the hemorrhagic areas in 1A-1D. ? JE/lm MICROSCOPIC DESCRIPTION: ? Microscopic examination reveals a benign pattern with alterations that reflect ? those mentioned in the gross description. ??The small bowel has diffuse ? congestion with patchy areas of reactive fibrosis that involve the mesentery ? and serosa, accompanied by muscular wall hypertrophy. ??Patchy areas of mucosal ? hemorrhage and erosion are also noted. ?SR/lm ?? CONTINUED ?Page: ?? 8 Patient No: [id number] ? [facility] Patient Name: MARI ORDONEZ ? [facility] Age: 41 YRS ?: 1970 ?Sex:F ?[address] )[phone] ?? Adm Dt: 05/23/2012 ?[place], [place] ??[id number] Created: 05/30/2012 ??0024 ?? Pt. Type: I ? Discharge Dt: 05/29/2012 ? Pathologists: Ping Gonzalez MD Admit DrArmand Attend Dr: TERE PERALTA MD ?S U R G I C A L ?P A T H O L O G Y ?R E P O R T ? Case #: ?[id number] ? Date: 05/24/12 DIAGNOSIS: ? SMALL BOWEL, INCARCERATED HERNIA REPAIR ? -HEMORRHAGE AND FIBROSIS ? -ADHESIONS ? [id number], [id number], [id number], [id number] ?URINALYSIS ?Collection Date: ?05/23/12 ?Collection Time: ?2244 ? Ref Range: ?? Units: [YELLOW] ? U COLOR ? YELLOW ??[CLEAR] ? U APPEARANCE ?CLOUDY * [1.000-1.030] ? U SPEC GRAVITY ? 1.022 [NEGATIVE] ?U LEUKO ESTRASE ? NEGATIVE [NEGATIVE] ?U NITRITE ? NEGATIVE ?? [6.0] ?U PH ? 6.0 [NEGATIVE] ?U PROTEIN ?TRACE [NEGATIVE] ?U GLUCOSE ? NEGATIVE [NEGATIVE] ?U KETONES ? 15 [0.2- 1.0] ?UROBILINOGEN ? 1.0 [NEGATIVE] ?U BILIRUBIN ? NEGATIVE [NEGATIVE] ?U BLOOD ?SMALL * ?? [0-2] ?U WBC ?2-5 ?? [0-5] ?U RBC ?10-25 ?? [0-2] ?U EPI CELLS ? 5-10 [NEGATIVE] ?U BACTERIA ?2+ * ?U YEASTS ?NEGATIVE Footnotes and Symbols: * = Abnormal ? Pathologist: Ping Gonzalez M.D. ??Electronic signature ? SCR SCR/LM 05/28/12 ?? CONTINUED ?Page: ?? 9 Patient No: [id number] ? [facility] Patient Name: MERY MARI Costello ? [facility] Age: 41 YRS ?: 1970 ?Sex:F ?[address] )[phone] ?? Adm Dt: 05/23/2012 ?[place], [place] ??[address] Created: 05/30/2012 ??0024 ?? Pt. Type: I ? Discharge Dt: 05/29/2012 ? Pathologists: Ping Gonzalez MD Admit Attend Dr: TERE PERALTA MD ?URINALYSIS ?Collection Date: ?05/23/12 ?Collection Time: ?2243 ? Ref Range: ?? Units: ?? [0-4] ?U HYALINE CASTS ?2-5 [NEGATIVE] ?U CRYSTALS ?NEGATIVE [NOT SEEN] ?U PATH CASTS ?NEGATIVE ?? END OF CHART ? Page: ??10 us Historical Provider LAB BLOOD ORDERABLES Juany rowe Result HISTORICAL RESULTS * (ABNORMAL) Serum basic metabolic panel (05/28/2012 4:30 AM CDT) BUN 16.0 6.0 - 23.0 mg/dl HISTORICAL RESULTS Calcium 7.9(L) 8.6 - 9.8 mg/dl HISTORICAL RESULTS Sodium 143 134 - 143 mmol/L HISTORICAL RESULTS Potassium, sr 3.2(L) 3.4 - 5.0 mmol/L HISTORICAL RESULTS Chloride 111(H) 99 - 108 mmol/L HISTORICAL RESULTS CO2 26 23 - 32 mmol/L HISTORICAL RESULTS Glucose, fasting 93 70 - 110 mg/dl HISTORICAL RESULTS Creatinine 0.84 0.60 - 1.30 mg/dl HISTORICAL RESULTS Comment: eGFR: >70 ml/min/1.73sq.m if non -[place] Citizen. eGFR: >70 ml/min/1.73sq.m if -[place] Citizen. AVE GFR for 40-49 yr. age group: ??99 ml/min/1.73sq.m Calculated using MDRD Equation BUN/creat ratio 19 10 - 20 HIST ORICAL RESULTS A. gap 9 7 - 14 mmol/L HISTORICAL RESULTS Osmo, calc 286 275 - 295 mOsm/kg HISTORICAL RESULTS Serum 05/28/2012 4:30 AM CDT Tere Peralta MD LAB BLOOD ORDERABLES Final Re sult HISTORICAL RESULTS * (ABNORMAL) Blood cell count (CBC) (05/28/2012 4:30 AM CDT) Pathologist [facility] WBC 8.6 4.0 - 10.5 K/cumm HISTORICAL RESULTS RBC 3.32(L) 4.20 - 5.40 M/cumm HISTORICAL RESULTS Hgb 9.5(L) 12.0 - 16.0 g/dl HISTORICAL RESULTS Hct 30.6(L) 37.0 - 47.0 % HISTORICAL RESULTS MCV 92.2 77.0 - 97.0 fl HISTORICAL RESULTS MCH 28.6 23.0 - 34.0 pg HISTORICAL RESULTS MCHC 31.0(L) 32.0 - 36.0 g/dl HISTORICAL RESULTS Rdw 14.6(H) 11.5 - 14.5 % HISTORICAL RESULTS Platelets 300 150 - 451 K/cumm HISTORICAL RESULTS MPV 10.1 7.4 - 10.4 fl HISTORICAL RESULTS Blood specimen (specimen) 05/28/2012 4:30 AM CDT Tere Peralta MD LAB BLOOD ORDERABLES Final Re sult Performing Organization Address [facility] de Phone Number HISTORICAL RESULTS * (ABNORMAL) Blood WBC cell morphologic exam, auto (05/28/2012 4:30 AM CDT) Pathologist [facility] Lymphocytes 20.2(L) 25.0 - 33.0 % HISTORICAL RESULTS Monos 7.1 1.0 - 13.0 % HISTORICAL RESULTS Neutrophils 68.4 54.0 - 69.0 % HISTORICAL RESULTS Eosinophils 3.8 0.0 - 10.0 % HISTORICAL RESULTS Basophils 0.2 0.0 - 1.0 % HISTORICAL RESULTS Immature granulocytes 0.3 0.0 - 1.0 % HISTORICAL RESULTS Lymphocytes, abs 1.7 1.2 - 3.4 K/cumm HISTORICAL RESULTS Monocytes, absolute 0.6(L) 1.1 - 1.9 K/cumm HISTORICAL RESULTS Neutrophils, abs 5.9 1.4 - 6.5 K/cumm HISTORICAL RESULTS Eosinophils, abs 0.3 0.0 - 0.7 cells/cum m HISTORICAL RESULTS Basophils, abs 0.0 0.0 - 0.2 K/cumm HISTORICAL RESULTS Immature granulocyte, abs 0(H) 0 - 0 K/cumm HISTORICAL RESULTS Blood specimen (specimen) 05/28/2012 4:30 AM CDT Tere Peralta MD LAB BLOOD ORDERABLES Final Re [facility] Performing Organization Address [facility] de Phone Number HISTORICAL RESULTS * (ABNORMAL) Serum basic metabolic panel (05/27/2012 5:39 AM CDT) BUN 16.0 6.0 - 23.0 mg/dl HISTORICAL RESULTS Sodium 145(H) 134 - 143 mmol/L HISTORICAL RESULTS Potassium, sr 3.5 3.4 - 5.0 mmol/L HISTORICAL RESULTS Chloride 112(H) 99 - 108 mmol/L HISTORICAL RESULTS CO2 24 23 - 32 mmol/L HISTORICAL RESULTS Glucose, fasting 102 70 - 110 mg/dl HISTORICAL RESULTS Creatinine 0.98 0.60 - 1.30 mg/dl HISTORICAL RESULTS Comment: eGFR:66 ml/min/1.73sq.m if non -[place] Citizen. eGFR: >70 ml/min/1.73sq.m if -[place] Citizen. AVE GFR for 40-49 yr. age group: ??99 ml/min/1.73sq.m Calculated using MDRD Equation BUN/creat ratio 16 10 - 20 HIST ORICAL RESULTS A. gap 13 7 - 14 mmol/L HISTORICAL RESULTS Osmo, calc 290 275 - 295 mOsm/kg HISTORICAL RESULTS Calcium 8.4(L) 8.6 - 9.8 mg/dl HISTORICAL RESULTS Serum 05/27/2012 5:39 AM CDT Tere Peralta MD LAB BLOOD ORDERABLES Final Re sult Performing Organization Address [facility] Co de Phone Number HISTORICAL RESULTS * (ABNORMAL) Blood cell count (CBC) (05/27/2012 5:39 AM CDT) WBC 16.1(H) 4.0 - 10.5 K/cumm HISTORICAL RESULTS RBC 3.83(L) 4.20 - 5.40 M/cumm HISTORICAL RESULTS Hgb 11.1(L) 12.0 - 16.0 g/dl HISTORICAL RESULTS Hct 35.0(L) 37.0 - 47.0 % HISTORICAL RESULTS MCV 91.4 77.0 - 97.0 fl HISTORICAL RESULTS MCH 29.0 23.0 - 34.0 pg HISTORICAL RESULTS MCHC 31.7(L) 32.0 - 36.0 g/dl HISTORICAL RESULTS Rdw 14.3 11.5 - 14.5 % HISTORICAL RESULTS Platelets 307 150 - 451 K/cumm HISTORICAL RESULTS MPV 10.4 7.4 - 10.4 fl HISTORICAL RESULTS Blood specimen (specimen) 05/27/2012 5:39 AM CDT Tere Peralta MD LAB BLOOD ORDERABLES Final Re sult Performing Organization Address [facility] de Phone Number HISTORICAL RESULTS * (ABNORMAL) Blood WBC cell morphologic exam, auto (05/27/2012 5:39 AM CDT) Lymphocytes 5.8(L) 25.0 - 33.0 % HISTORICAL RESULTS Monos 4.2 1.0 - 13.0 % HISTORICAL RESULTS Neutrophils 89.0(H) 54.0 - 69.0 % HISTORICAL RESULTS Eosinophils 0.6 0.0 - 10.0 % HISTORICAL RESULTS Basophils 0.1 0.0 - 1.0 % HISTORICAL RESULTS Immature granulocytes 0.3 0.0 - 1.0 % HISTORICAL RESULTS Lymphocytes, abs 0.9(L) 1.2 - 3.4 K/cumm HISTORICAL RESULTS Monocytes, absolute 0.7(L) 1.1 - 1.9 K/cumm HISTORICAL RESULTS Neutrophils, abs 14.4(H) 1.4 - 6.5 K/cumm HISTORICAL RESULTS Eosinophils, abs 0.1 0.0 - 0.7 cells/cum m HISTORICAL RESULTS Basophils, abs 0.0 0.0 - 0.2 K/cumm HISTORICAL RESULTS Immature granulocyte, abs 0(H) 0 - 0 K/cumm HISTORICAL RESULTS Blood specimen (specimen) 05/27/2012 5:39 AM CDT Tere Peralta MD LAB BLOOD ORDERABLES Final Re sult HISTORICAL RESULTS * (ABNORMAL) Serum basic metabolic panel (05/26/2012 5:09 AM CDT) BUN 14.0 6.0 - 23.0 mg/dl HISTORICAL RESULTS Sodium 143 134 - 143 mmol/L HISTORICAL RESULTS Potassium, sr 3.6 3.4 - 5.0 mmol/L HISTORICAL RESULTS Chloride 109(H) 99 - 108 mmol/L HISTORICAL RESULTS CO2 24 23 - 32 mmol/L HISTORICAL RESULTS Glucose, fasting 130(H) 70 - 110 mg/dl HISTORICAL RESULTS Creatinine 1.04 0.60 - 1.30 mg/dl HISTORICAL RESULTS Comment: eGFR:61 ml/min/1.73sq.m if non -[place] Citizen. eGFR: >70 ml/min/1.73sq.m if -[place] Citizen. AVE GFR for 40-49 yr. age group: ??99 ml/min/1.73sq.m Calculated using MDRD Equation BUN/creat ratio 13 10 - 20 HIST ORICAL RESULTS A. gap 13 7 - 14 mmol/L HISTORICAL RESULTS Osmo, calc 287 275 - 295 mOsm/kg HISTORICAL RESULTS Calcium 8.3(L) 8.6 - 9.8 mg/dl HISTORICAL RESULTS Serum 05/26/2012 5:09 AM CDT Tere Peralta MD LAB BLOOD ORDERABLES Final Re sult HISTORICAL RESULTS * (ABNORMAL) Blood cell count (CBC) (05/26/2012 5:09 AM CDT) WBC 20.1(H) 4.0 - 10.5 K/cumm HISTORICAL RESULTS RBC 4.33 4.20 - 5.40 M/cumm HISTORICAL RESULTS Hgb 12.6 12.0 - 16.0 g/dl HISTORICAL RESULTS Hct 39.1 37.0 - 47.0 % HISTORICAL RESULTS MCV 90.3 77.0 - 97.0 fl HISTORICAL RESULTS MCH 29.1 23.0 - 34.0 pg HISTORICAL RESULTS MCHC 32.2 32.0 - 36.0 g/dl HISTORICAL RESULTS Rdw 14.1 11.5 - 14.5 % HISTORICAL RESULTS Platelets 307 150 - 451 K/cumm HISTORICAL RESULTS MPV 10.3 7.4 - 10.4 fl HISTORICAL RESULTS Blood specimen (specimen) 05/26/2012 5:09 AM CDT Tere Peralta MD LAB BLOOD ORDERABLES Final Re sult Performing Organization Address [facility] de Phone Number HISTORICAL RESULTS * (ABNORMAL) Blood WBC cell morphologic exam, auto (05/26/2012 5:09 AM CDT) [facility] Lymphocytes 4.5(L) 25.0 - 33.0 % HISTORICAL RESULTS Monos 3.9 1.0 - 13.0 % HISTORICAL RESULTS Neutrophils 91.3(H) 54.0 - 69.0 % HISTORICAL RESULTS Eosinophils 0.1 0.0 - 10.0 % HISTORICAL RESULTS Basophils 0.0 0.0 - 1.0 % HISTORICAL RESULTS Immature granulocytes 0.2 0.0 - 1.0 % HISTORICAL RESULTS Lymphocytes, abs 0.9(L) 1.2 - 3.4 K/cumm HISTORICAL RESULTS Monocytes, absolute 0.8(L) 1.1 - 1.9 K/cumm HISTORICAL RESULTS Neutrophils, abs 18.3(H) 1.4 - 6.5 K/cumm HISTORICAL RESULTS Eosinophils, abs 0.0 0.0 - 0.7 cells/cum m HISTORICAL RESULTS Basophils, abs 0.0 0.0 - 0.2 K/cumm HISTORICAL RESULTS Immature granulocyte, abs 0(H) 0 - 0 K/cumm HISTORICAL RESULTS Blood specimen (specimen) 05/26/2012 5:09 AM CDT Tere Peralta MD LAB BLOOD ORDERABLES Final Re sult Performing Organization Address [facility] de Phone Number HISTORICAL RESULTS * (ABNORMAL) Serum basic metabolic panel (05/25/2012 3:54 AM CDT) [facility] BUN 8.0 6.0 - 23.0 mg/dl HISTORICAL RESULTS Sodium 141 134 - 143 mmol/L HISTORICAL RESULTS Potassium, sr 3.4 3.4 - 5.0 mmol/L HISTORICAL RESULTS Chloride 108 99 - 108 mmol/L HISTORICAL RESULTS CO2 26 23 - 32 mmol/L HISTORICAL RESULTS Glucose, fasting 123(H) 70 - 110 mg/dl HISTORICAL RESULTS Creatinine 1.10 0.60 - 1.30 mg/dl HISTORICAL RESULTS Comment: eGFR:58 ml/min/1.73sq.m if non -[place] Citizen. eGFR:70 ml/min/1.73sq.m if -[place] Citizen. AVE GFR for 40-49 yr. age group: ??99 ml/min/1.73sq.m Calculated using MDRD Equation BUN/creat ratio 7(L) 10 - 20 HIST ORICAL RESULTS A. gap 11 7 - 14 mmol/L HISTORICAL RESULTS Osmo, calc 281 275 - 295 mOsm/kg HISTORICAL RESULTS Calcium 7.6(L) 8.6 - 9.8 mg/dl HISTORICAL RESULTS Serum 05/25/2012 3:54 AM CDT us Tere Peralta MD LAB BLOOD ORDERABLES Final Re sult Performing Organization Address [place]/[facility] Co de Phone Number HISTORICAL RESULTS * (ABNORMAL) Blood cell count (CBC) (05/25/2012 3:54 AM CDT) WBC 15.8(H) 4.0 - 10.5 K/cumm HISTORICAL RESULTS RBC 4.43 4.20 - 5.40 M/cumm HISTORICAL RESULTS Hgb 12.9 12.0 - 16.0 g/dl HISTORICAL RESULTS Hct 39.5 37.0 - 47.0 % HISTORICAL RESULTS MCV 89.2 77.0 - 97.0 fl HISTORICAL RESULTS MCH 29.1 23.0 - 34.0 pg HISTORICAL RESULTS MCHC 32.7 32.0 - 36.0 g/dl HISTORICAL RESULTS Rdw 13.8 11.5 - 14.5 % HISTORICAL RESULTS Platelets 292 150 - 451 K/cumm HISTORICAL RESULTS MPV 10.3 7.4 - 10.4 fl HISTORICAL RESULTS Blood specimen (specimen) 05/25/2012 3:54 AM CDT us Tere Peralta MD LAB BLOOD ORDERABLES Final Re sult Performing Organization Address [place]/[facility]/ZIP Co de Phone Number HISTORICAL RESULTS * (ABNORMAL) Blood WBC cell morphologic exam, auto (05/25/2012 3:54 AM CDT) Lymphocytes 5.6(L) 25.0 - 33.0 % HISTORICAL RESULTS Monos 4.6 1.0 - 13.0 % HISTORICAL RESULTS Neutrophils 89.5(H) 54.0 - 69.0 % HISTORICAL RESULTS Eosinophils 0.0 0.0 - 10.0 % HISTORICAL RESULTS Basophils 0.1 0.0 - 1.0 % HISTORICAL RESULTS Immature granulocytes 0.2 0.0 - 1.0 % HISTORICAL RESULTS Lymphocytes, abs 0.9(L) 1.2 - 3.4 K/cumm HISTORICAL RESULTS Monocytes, absolute 0.7(L) 1.1 - 1.9 K/cumm HISTORICAL RESULTS Neutrophils, abs 14.1(H) 1.4 - 6.5 K/cumm HISTORICAL RESULTS Eosinophils, abs 0.0 0.0 - 0.7 cells/cum m HISTORICAL RESULTS Basophils, abs 0.0 0.0 - 0.2 K/cumm HISTORICAL RESULTS Immature granulocyte, abs 0(H) 0 - 0 K/cumm HISTORICAL RESULTS Blood specimen (specimen) 05/25/2012 3:54 AM CDT us Tere Peralta MD LAB BLOOD ORDERABLES Final Re sult HISTORICAL RESULTS * Surgical Pathology Report (05/24/2012 12:52 PM CDT) 05/24/2012 12:5 2 PM CDT Narrative HISTORICAL RESULTS - 05/28/2012 1:24 PM CDT [facility] Patient No: [id number] Patient Name: MARI ORDONEZ [id number] Age: 41 YRS ?? : 1970 Admit Phys: TERE PERALTA MD Case #: [id number] ? Date: 05/24/12 SPECIMEN SOURCE: ? Small bowel. CLINICAL INFORMATION AND IMPRESSION: ? Ventral hernia/incisional incarcerated. ??Repair of incisional ? ventral incarcerated hernia with Xen Matrix graft, small ? bowel resection, lysis of adhesions and bilateral component ? separation. GROSS DESCRIPTION: ? The specimen is received in formalin labeled Mari ? Ordonez and bowel . It is a segment of somewhat tortuous ? small bowel, with attached mesentery, 37 cm in length by ? approximately 3.0 cm in average diameter. ??Two areas of ? hemorrhagic/tortuous/dusky thinning are present, one ? approximately 6.5 cm from one end (unmarked) and the other ? approximately 5 cm from the opposite end. ??These areas show ? mucosal thinning, with virtual perforation of the wall, with ? associated firm serosal fibrosis, consistent with the history ? of an incarcerated ventral hernia. Upon opening, the mucosa ? is generally light diop, granular, and unremarkable save for ? the area of incarceration/thinning. Also received in the ? container is a second tubular fragment of small bowel, ? externally unremarkable and 6.5 cm in length. The diameter is ? unremarkable. ??Upon opening, the mucosa is granular and ? unremarkable. ??Corporate Responsibility Officer sections embedded in six ? cassettes, with the hemorrhagic areas in 1A-1D. ??JE/lm MICROSCOPIC DESCRIPTION: ? Microscopic examination reveals a benign pattern with ? alterations that reflect those mentioned in the gross ? description. ??The small bowel has diffuse congestion with ? patchy areas of reactive fibrosis that involve the mesentery ? and serosa, accompanied by muscular wall hypertrophy. ??Patchy ? areas of mucosal hemorrhage and erosion are also noted. ? SR/lm DIAGNOSIS: ? SMALL BOWEL, INCARCERATED HERNIA REPAIR ? -HEMORRHAGE AND FIBROSIS ? -ADHESIONS ? [id number], [id number], [id number], [id number] ? Pathologist: Ping Gonzalez M.D. ??Electronic ?signature ? SCR SCR/LM 05/28/12 us Historical Provider MD LAB PATHOLOGY ORDERABLES Final Result HISTORICAL RESULTS * CT Abdomen Pelvis W Contrast (05/23/2012 10:55 PM CDT) Anatomical Region Laterality Modality Body N/A Computed Tomogra phy 05/23/2012 10:5 5 PM CDT Narrative 05/24/2012 1:[address] Abd/Pel W ?[id number] ??Acc#: ??[id number] DATE OF EXAM: ??May 23 2012 CLINICAL HISTORY: Abdominal pain, nausea and vomiting. RESULT: Helically acquired axial images were obtained from the dome of the diaphragm to the pubic symphysis following the administration of oral and intravenous contrast. A mechanical small bowel obstruction is present secondary to an umbilical hernia which contains a loop of small bowel near the jejunoileal junction. ??A moderate amount of inflammatory stranding is present within the small hernia sac. ??There is no evidence of significant bowel wall thickening, free fluid or air. ??Distal bowel is collapsed. The liver, spleen, pancreas, adrenals and kidneys are normal. The patient is status post cholecystectomy. ??There is no evidence of retroperitoneal lymphadenopathy. ??Pelvic contents are normal. ??The lung bases are clear. IMPRESSION: 1. MECHANICAL SMALL BOWEL OBSTRUCTION AT THE JEJUNOILEAL JUNCTION SECONDARY TO AN UMBILICAL HERNIA. 2. MODERATE AMOUNT OF INFLAMMATORY STRANDING OF THE BOWEL WITHIN THE HERNIA SAC AND EXTENDING INTO THE SMALL BOWEL MESENTERY. 3. OTHERWISE NORMAL CT OF THE ABDOMEN AND PELVIS. Results were called to Dr. Pérez in Emergency Department at 2300 hours. Interpreting Physician: ??DR ADÁN DURBIN M.D. ??Read on: ??May 24 2012 5:40A Transcribed by: ??guy ?? On: May 24 2012 ??8:11A Approved Electronically by: ??RAMAKRISHNA Boudreaux, DR MCCAIN ??on: ??May 24 2012 1:37P Ordering DR: DR TREVOR PÉREZ Attending DR: LOBO BAZAN Procedure Note Provider, Kendrick, - 06/30/2016 CT Abd/Pel W [id number] Acc#: [id number] DATE OF EXAM: May 23 2012 CLINICAL HISTORY: Abdominal pain, nausea and vomiting. RESULT: Helically acquired axial images were obtained from the dome of thediaphragm to the pubic symphysis following the administration of oral andintravenous contrast. A mechanical small bowel obstruction is presentsecondary to an umbilical hernia which contains a loop of small bowel nearthe jejunoileal junction. A moderate amount of inflammatory stranding ispresent within the small hernia sac. There is no evidence of significantbowel wall thickening, free fluid or air. Distal bowel is collapsed. Theliver, spleen, pancreas, adrenals and kidneys are normal. The patient isstatus post cholecystectomy. There is no evidence of retroperitoneallymphadenopathy. Pelvic contents are normal. The lung bases are clear. IMPRESSION: 1. MECHANICAL SMALL BOWEL OBSTRUCTION AT THE JEJUNOILEAL JUNCTIONSECONDARY TO AN UMBILICAL HERNIA. 2. MODERATE AMOUNT OF INFLAMMATORY STRANDING OF THE BOWEL WITHIN THEHERNIA SAC AND EXTENDING INTO THE SMALL BOWEL MESENTERY. 3. OTHERWISE NORMAL CT OF THE ABDOMEN AND PELVIS. Results were called toDr. Pérez in Emergency Department at 2300 hours. Interpreting Physician: DR ADÁN DURBIN M.D. Read on: May 24 20125:40A Transcribed by: guy On: May 24 2012 8:11A Approved Electronically by: DR ADÁN DURBIN M.D. on: May 24 20121:37P Ordering DR: DR TREVOR PÉREZ Attending DR: LOBO BAZAN us Historical Provider MD BENJAMIN CT PROCEDURES Final R esult * (ABNORMAL) Urinalysis (05/23/2012 10:44 PM CDT) Color, ur YELLOW YELLOW HISTORICAL RESULTS Clarity, ur CLOUDY(A) CLEAR HISTORIC AL RESULTS Specific gravity, ur 1.022 1.000 - 1.030 gu HISTORICAL RESULTS Leukocyte esterase, ur Negative NEGATIVE HISTORICAL RESULTS Nitrites, ur Negative NEGATIVE HISTORI SIMRAN RESULTS pH, ur 6.0 6.0 HISTORICAL RESULTS Protein, ur Trace NEGATIVE HISTORIC AL RESULTS Glucose, ur Negative NEGATIVE HISTORIC AL RESULTS Ketones, ur 15 NEGATIVE HISTORIC AL RESULTS Urobilinogen, quant, ur 1.0 0.2 - 1.0 mg/dl HISTORICAL RESULTS Bilirubin, ur Negative NEGATIVE HISTOR ICAL RESULTS U Blood SMALL(A) NEGATIVE HISTORICAL RESULTS Urine 05/23/2012 10:4 4 PM CDT Trevor Pérez MD LAB BLOOD ORDERABLES Final Re sult Performing Organization Address [facility] de Phone Number HISTORICAL RESULTS * (ABNORMAL) Urine microscopy (05/23/2012 10:44 PM CDT) WBC, ur 2 - 5 0 - 2 /hpf HISTORICA L RESULTS RBC, ur 10 - 25 0 - 5 /hpf HISTORICA L RESULTS Epithelial cells, ur 5 - 10 0 - 2 /hpf HISTORICAL RESULTS Bacteria, ur 2+(A) NEGATIVE /hpf HISTORICAL RESULTS Hyaline casts 2 - 5 0 - 4 /lpf HISTO RICAL RESULTS Crystals, ur Negative NEGATIVE HISTORI SIMRAN RESULTS Yeast, ur Negative NEGATIVE HISTORICAL RESULTS Pathological casts, ur Negative NOTSEEN HISTORICAL RESULTS Urine 05/23/2012 10:4 4 PM CDT Trevor Pérez MD LAB BLOOD ORDERABLES Final Re sult Performing Organization Address [facility] Co de Phone Number HISTORICAL RESULTS * Serum chorionic gonadotropin (HCG) identification (05/23/2012 9:39 PM CDT) HCG, qual Negative NEGATIVE HISTORICAL RESULTS Serum 05/23/2012 9:39 PM CDT us Trevor Pérez MD LAB BLOOD ORDERABLES Final Re sult Performing Organization Address [facility] de Phone Number HISTORICAL RESULTS * Serum lipase (05/23/2012 9:39 PM CDT) Lip 103 70 - 400 Units/L HISTORICAL RESULTS Serum 05/23/2012 9:39 PM CDT Trevor Pérez MD LAB BLOOD ORDERABLES Final Re sult Performing Organization Address [facility] de Phone Number HISTORICAL RESULTS * (ABNORMAL) Blood cell count (CBC) (05/23/2012 9:39 PM CDT) WBC 11.9(H) 4.0 - 10.5 K/cumm HISTORICAL RESULTS RBC 4.98 4.20 - 5.40 M/cumm HISTORICAL RESULTS Hgb 14.5 12.0 - 16.0 g/dl HISTORICAL RESULTS Hct 43.9 37.0 - 47.0 % HISTORICAL RESULTS MCV 88.2 77.0 - 97.0 fl HISTORICAL RESULTS MCH 29.1 23.0 - 34.0 pg HISTORICAL RESULTS MCHC 33.0 32.0 - 36.0 g/dl HISTORICAL RESULTS Rdw 13.1 11.5 - 14.5 % HISTORICAL RESULTS Platelets 323 150 - 451 K/cumm HISTORICAL RESULTS MPV 10.0 7.4 - 10.4 fl HISTORICAL RESULTS Blood specimen (specimen) 05/23/2012 9:39 PM CDT us Trevor Pérez MD LAB BLOOD ORDERABLES Final Re sult Performing Organization Address [facility] de Phone Number HISTORICAL RESULTS * Serum amylase (05/23/2012 9:39 PM CDT) Anne, sr 49 25 - 115 IUnits/L HISTORICAL RESULTS Comment:PLEASE SEE NEW REFER ENCE RANGE Serum 05/23/2012 9:39 PM CDT us Trevor Pérez MD LAB BLOOD ORDERABLES Final Re sult Performing Organization Address [facility] Co de Phone Number HISTORICAL RESULTS * (ABNORMAL) Blood WBC cell morphologic exam, auto (05/23/2012 9:39 PM CDT) Pathologist [facility] Lymphocytes 12.5(L) 25.0 - 33.0 % HISTORICAL RESULTS Monos 5.6 1.0 - 13.0 % HISTORICAL RESULTS Neutrophils 81.0(H) 54.0 - 69.0 % HISTORICAL RESULTS Eosinophils 0.5 0.0 - 10.0 % HISTORICAL RESULTS Basophils 0.2 0.0 - 1.0 % HISTORICAL RESULTS Immature granulocytes 0.2 0.0 - 1.0 % HISTORICAL RESULTS Lymphocytes, abs 1.5 1.2 - 3.4 K/cumm HISTORICAL RESULTS Monocytes, absolute 0.7(L) 1.1 - 1.9 K/cumm HISTORICAL RESULTS Neutrophils, abs 9.6(H) 1.4 - 6.5 K/cumm HISTORICAL RESULTS Eosinophils, abs 0.1 0.0 - 0.7 cells/cum m HISTORICAL RESULTS Basophils, abs 0.0 0.0 - 0.2 K/cumm HISTORICAL RESULTS Immature granulocyte, abs 0(H) 0 - 0 K/cumm HISTORICAL RESULTS Blood specimen (specimen) 05/23/2012 9:39 PM CDT us Trevor Pérez MD LAB BLOOD ORDERABLES Final Re sult HISTORICAL RESULTS * (ABNORMAL) Serum comprehensive metabolic panel (05/23/2012 9:39 PM CDT) Pathologist [facility] BUN 11.0 6.0 - 23.0 mg/dl HISTORICAL RESULTS Sodium 141 134 - 143 mmol/L HISTORICAL RESULTS Potassium, sr 4.1 3.4 - 5.0 mmol/L HISTORICAL RESULTS Chloride 104 99 - 108 mmol/L HISTORICAL RESULTS CO2 28 23 - 32 mmol/L HISTORICAL RESULTS Glucose, fasting 113(H) 70 - 110 mg/dl HISTORICAL RESULTS Creatinine 1.12 0.60 - 1.30 mg/dl HISTORICAL RESULTS Comment: eGFR:56 ml/min/1.73sq.m if non -[place] Citizen. eGFR:68 ml/min/1.73sq.m if -[place] Citizen. AVE GFR for 40-49 yr. age group: ??99 ml/min/1.73sq.m Calculated using MDRD Equation BUN/creat ratio 10 10 - 20 HIST ORICAL RESULTS A. gap 13 7 - 14 mmol/L HISTORICAL RESULTS Protein, sr 7.9 6.4 - 8.0 g/dl HISTORICAL RESULTS Alb 3.8 3.3 - 4.5 g/dl HISTORICAL RESULTS Alb/glob ratio 0.9(L) 1.1 - 1.8 HISTO RICAL RESULTS Calcium 9.2 8.6 - 9.8 mg/dl HISTORICAL RESULTS Bilirubin 0.6 0.0 - 1.1 mg/dl HISTORICAL RESULTS Alk phos 105 44 - 125 Units/L HISTORICAL RESULTS AST 15 4 - 32 Units/L HISTORICAL RESULTS ALT 33 16 - 66 Units/L HISTORICAL RESULTS Serum 05/23/2012 9:39 PM CDT us Trevor Pérez MD LAB BLOOD ORDERABLES Final Re sult HISTORICAL RESULTS documented in this encounter Visit Diagnoses Diagnosis Incisional hernia with obstruction Hypopotassemia Peritoneal adhesions Peritoneal adhesions (postoperative) (postinfection) Open wound of abdominal wall, anterior Open wound of abdominal wall, anterior, without mention of complication Esophageal reflux Personal history of allergy to narcotic agent Encounter for long-term (current) use of aspirin Surgical operation with anastomosis, bypass, or graft, with natural or artificial tissues used as implant causing abnormal patient reaction, or later complication Place of occurrence, residential institution documented in this encounter Care Teams Correction Officer Relationship Specialty Start Date End Date Lobo Bazan MD PCP - General 11/17/08 05/03/16 documented as of this encounter
--- OUTSIDE RECORDS SUMMARY | 2024-02-26 03:07 | XMS_ITS | Encounter Summary ---
Author Organization [facility] Healthcare Address [address] [place] [address] Care Team Providers Care Butane Compressor Operator Name Role Phone Lobo Bazan MD Primary Care Provider [phone]- [phone] Encounter Details Date Type Department Care Team (Late st Contact Info) Description 05/04/2016 9:29 AM KITCHEN RUNNER - 05/04/2016 11:59 PM KITCHEN RUNNER Hospital Encounter [facility] INTERIM Shanice Frankel MD [address] [place] [address] Discharge Disposition: Discharge to home or self care Social History Tobacco Use Types Packs/Day Years Used Date Smoking Tobacco: Never Assessed Alcohol Use Standard Drinks/Week Comments No 0 (1 standard drink = 0.6 oz pur e alcohol) Comments Unknown Sex and Gender Information Value Date Recorded Sex Assigned at Not on file Legal Sex Female 12:36 PM KITCHEN RUNNER Gender Identity Not on file Sexual Orientation [...] on filedocumented in this encounter Care Teams Butane Compressor Operator Relationship Specialty Start Date End Date Lobo Bazan MD PCP - General 05/04/16 05/26/16 documented as of this encounter
--- OUTSIDE RECORDS SUMMARY | 2024-02-26 03:07 | XMS_ITS | Encounter Summary ---
Author Organization [facility] Healthcare Address [address] [place] [address] Care Team Providers Care Foreman/Pile Driving And Erection Name Role Phone Lobo Bazan MD Primary Care Provider [phone]- [phone] Encounter Details Date Type Department Care Team (Late st Contact Info) Description 08/23/2012 11:00 AM CDT - 08/23/2012 11:59 PM CDT Hospital Encounter [facility] CLINCONV Emely, Michel Dudley MD [address] [place] [id number] Infected postoperative seroma; Ventral hernia Social History Tobacco Use Types Packs/Day Years Used Date Smoking Tobacco: Never Assessed Comments Unknown Sex and Gender Information Value Date Recorded Sex Assigned at Not on file 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 Gender Identity Not on file Sexual Orientation [...] Procedure Name Priority Date/Time Associated Diagnosis Comments ABDOMINAL COMPUTED TOMOGRAPHY (CT) WITH CONTRAST Routine 08/23/2012 12:14 PM CDT documented in this encounter Results * ABDOMINAL COMPUTED TOMOGRAPHY (CT) WITH CONTRAST (08/23/2012 12:14 PM CDT) Anatomical Region Laterality Modality N/A Computed Tomogra phy 08/23/2012 12:1 4 PM CDT Narrative 08/24/2012 12:31 PM CDT CC: ??DR LOBO BAZAN CT Abd W ?[id number] ??Acc#: ??[id number] DATE OF EXAM: ??Aug 23 2012 CLINICAL HISTORY: Status post repair in April 2012 of ventral hernia causing small bowel obstruction. Incomplete healing of surgical wound with seroma/infection. RESULT: Following oral and IV contrast (100 ml Optiray 320) administration spiral axial scans were obtained from lung bases to lumbosacral junction. Delayed scans through the kidneys following urinary tract opacification were also obtained. ??Axial and coronal reformatted images were reviewed. Comparison is made to exam on 05/23/12. Abdominal wall hernia is no longer present. ??There is thickening of the soft tissues along the anterior abdominal with linear strands extending into the subcutaneous tissue overlying it. ??There are at least three discrete pockets of air, two of which involve air fluid levels. No intraperitoneal free air is seen. No intraabdominal mass is seen. ??There are no dilated or thickened loops of bowel. ??Gallbladder is surgically absent. ??Bile ducts are not dilated. ??Liver, pancreas, spleen, adrenal glands, kidneys and visualized portions of ureters appear normal. Abdominal aorta and inferior vena cava are normal. ??No lymphadenopathy is seen. IMPRESSION: 1. ??STATUS POST VENTRAL HERNIA REPAIR WITH INCOMPLETE WOUND HEALING. INFLAMMATORY CHANGES WITH AIR FLUID LEVELS SUGGESTED INFECTED SEROMAS/ABSCESSES IN THE SUBCUTANEOUS TISSUES IMMEDIATELY OVERLYING THE REPAIRED ANTERIOR ABDOMINAL WALL. 2. ??RELIEF OF PREVIOUS SMALL BOWEL OBSTRUCTION. 3. ??NO ACUTE INTRAABDOMINAL FINDINGS. Interpreting Physician: ??HERBIE GARCIA M.D. ??Read on: ??Aug 23 2012 6:39P Transcribed by: ??ylc ??On: Aug 23 2012 ??7:08P Approved Electronically by: ??JOSE Boudreaux, HERBIE ??on: ??Aug 24 2012 12:30P Ordering DR: MICHEL MAY Attending DR: MICHEL MAY Procedure Note Provider, MD Kendrick - 06/30/2016 CC: DR LOBO BAZAN CT Abd W [id number] Acc#: [id number] DATE OF EXAM: Aug 23 2012 CLINICAL HISTORY: Status post repair in April 2012 of ventral hernia causing small bowelobstruction. Incomplete healing of surgical wound with seroma/infection. RESULT: Following oral and IV contrast (100 ml Optiray 320) administration spiralaxial scans were obtained from lung bases to lumbosacral junction. Delayedscans through the kidneys following urinary tract opacification were alsoobtained. Axial and coronal reformatted images were reviewed. Comparisonis made to exam on 05/23/12. Abdominal wall hernia is no longer present.There is thickening of the soft tissues along the anterior abdominal withlinear strands extending into the subcutaneous tissue overlying it. Thereare at least three discrete pockets of air, two of which involve air fluidlevels. No intraperitoneal free air is seen. No intraabdominal mass isseen. There are no dilated or thickened loops of bowel. Gallbladder issurgically absent. Bile ducts are not dilated. Liver, pancreas, spleen,adrenal glands, kidneys and visualized portions of ureters appear normal.Abdominal aorta and inferior vena cava are normal. No lymphadenopathy isseen. IMPRESSION: 1. STATUS POST VENTRAL HERNIA REPAIR WITH INCOMPLETE WOUND HEALING.INFLAMMATORY CHANGES WITH AIR FLUID LEVELS SUGGESTED INFECTEDSEROMAS/ABSCESSES IN THE SUBCUTANEOUS TISSUES IMMEDIATELY OVERLYING THEREPAIRED ANTERIOR ABDOMINAL WALL. 2. RELIEF OF PREVIOUS SMALL BOWEL OBSTRUCTION. 3. NO ACUTE INTRAABDOMINAL FINDINGS. Interpreting Physician: HERBIE GARCIA M.D. Read on: Aug 23 20126:39P Transcribed by: laureano On: Aug 23 2012 7:08P Approved Electronically by: HERBIE GARCIA M.D. on: Aug 24 201212:30P Ordering DR: MICHEL MAY Attending DR: MICHEL MAY us Historical Provider MD BENJAMIN CT PROCEDURES Final R esult documented in this encounter Visit Diagnoses Diagnosis Infected postoperative seroma Ventral hernia Unspecified ventral hernia without mention of obstruction or gangrene documented in this encounter Care Teams Foreman/Pile Driving And Erection Relationship Specialty Start Date End Date Lobo Bazan MD PCP - General 11/17/08 05/03/16 documented as of this encounter
--- OUTSIDE RECORDS SUMMARY | 2024-02-26 03:07 | XMS_ITS | Encounter Summary ---
Author Organization [facility] Healthcare Address [address] [place] [address] Care Team Providers Care Sports Instructor Name Role Phone Lobo Bazan MD Primary Care Provider [phone]- [phone] Encounter Details Date Type Department Care Team (Late st Contact Info) Description 03/31/2015 10:09 AM DOT ETCHER - 03/31/2015 11:59 PM [facility] Hospital Encounter [facility] FLORESCONShanice Beth MD [address] [place] [address] Encounter for screening mammogram for malignant neoplasm of breast; Breast lump; Family history of malignant neoplasm of breast Social History Tobacco Use Types Packs/Day Years Used Date Smoking Tobacco: Never Assessed Alcohol Use Standard Drinks/Week Comments No 0 (1 standard drink = 0.6 oz pur e alcohol) Comments Unknown Sex and Gender Information Value Date Recorded Sex Assigned at Not on file Legal Sex Female 12:36 PM DOT ETCHER Gender Identity Not on file Sexual Orientation [...] Date/Time Associated Diagnosis Comments DIGITAL MAMMOGRAPHY Routine 03/31/2015 1 0:31 AM DOT ETCHER documented in this encounter Results * DIGITAL MAMMOGRAPHY (03/31/2015 10:31 AM DOT ETCHER) Anatomical Region Laterality Modality Breast Mammography 03/31/2015 10:3 1 AM DOT ETCHER Narrative 03/31/2015 3:27 PM DOT ETCHER CC: ??Dr. Ivette Bazan Screening Mamm Bi ??Acc#: ??[id number] DATE OF EXAM: ??Mar ??2015 CLINICAL HISTORY: Screening. ??Family history of breast cancer (sister). Performed by: cd RESULT: Craniocaudal, exaggerated lateral craniocaudal and mediolateral oblique views demonstrate heterogeneously dense parenchyma in the breasts bilaterally, greatest in upper outer quadrants. ??Small circumscribed low density opaque nodule in lateral right breast is old and stable. ??No dominant mass suspicious for malignancy, skin thickening, nipple retraction or suspicious cluster of microcalcifications is seen. Digital technology was employed plus computer-aided detection software (R2) was utilized in interpretation of these images. ??This facility utilizes a reminder system to notify patients of yearly mammograms. IMPRESSION: 1. ??NO FINDINGS SUSPICIOUS FOR MALIGNANCY. 2. ??NO SIGNIFICANT CHANGE SINCE 01/17/14 OR 01/16/13. 3. ??RECOMMEND RESCREENING IN ONE YEAR. BI-RADS CATEGORY 2 - BENIGN FINDINGS Interpreting Physician: ??DR HERBIE GARCIA M.D. ??Read on: ??Feb ??2015 10:31A Transcribed by: ??laureano ??On: Mar ??2 2015 11:24A Approved Electronically by: ??JOSE Boudreaux, DR STONER ??on: ??Mar ??2 2015 3:27P Attending: ??SHANICE WILKINS Requesting: ??SHANICE WILKINS Requesting Fax: ??-- Attending Fax: ??-- Attending ID: ??[id number] Requesting ID: ??[id number] Report To 1 ID: ??[id number] Report To 1 Name: ??SHANICE WILKINS Report To 1 FAX: ??-- NextGen Order #: Procedure Note Provider, MD Kendrick - 06/30/2016 CC: Dr. Ivette Bazan Screening Mamm Bi Acc#: [id number] DATE OF EXAM: Mar 31 2015 CLINICAL HISTORY: Screening. Family history of breast cancer (sister). Performed by: cd RESULT: Craniocaudal, exaggerated lateral craniocaudal and mediolateral obliqueviews demonstrate heterogeneously dense parenchyma in the breastsbilaterally, greatest in upper outer quadrants. Small circumscribed lowdensity opaque nodule in lateral right breast is old and stable. Nodominant mass suspicious for malignancy, skin thickening, nippleretraction or suspicious cluster of microcalcifications is seen. Digitaltechnology was employed plus computer-aided detection software (R2) wasutilized in interpretation of these images. This facility utilizes areminder system to notify patients of yearly mammograms. IMPRESSION: 1. NO FINDINGS SUSPICIOUS FOR MALIGNANCY. 2. NO SIGNIFICANT CHANGE SINCE 01/17/14 OR 01/16/13. 3. RECOMMEND RESCREENING IN ONE YEAR. BI-RADS CATEGORY 2 - BENIGNFINDINGS Interpreting Physician: DR HERBIE GARCIA M.D. Read on: Mar 31 201510:31A Transcribed by: laureano On: Mar 31 2015 11:24A Approved Electronically by: DR HERBIE GARCIA M.D. on: Mar 31 20153:27P Attending: SHANICE WILKINS Requesting: SHANICE WILKINS Requesting Fax: -- Attending Fax: -- Attending ID: [id number] Requesting ID: [id number] Report To 1 ID: [id number] Report To 1 Name: SHANICE WILKINS Report To 1 FAX: -- NextGen Order #: Historical Provider MD BENJAMIN MAMMO PROCEDURES Juany l Result documented in this encounter Visit Diagnoses Diagnosis Encounter for screening mammogram for malignant neoplasm of breast Breast lump Lump or mass in breast Family history of malignant neoplasm of breast documented in this encounter Care Teams Sports Instructor Relationship Specialty Start Date End Date Lobo Bazan MD PCP - General 11/17/08 05/03/16 documented as of this encounter
--- OUTSIDE RECORDS SUMMARY | 2024-02-26 03:07 | XMS_ITS | Encounter Summary ---
Author Organization [facility] Healthcare Address [address] [place] [address] Care Team Providers Care Office Agent Name Role Phone Lobo Bazan MD Primary Care Provider [phone] Encounter Details Date Type Department Care Team (Late st Contact Info) Description 01/11/2010 12:01 AM PAPERHANGER AND PAINTER - 01/11/2010 11:59 PM PAPERHANGER AND PAINTER Hospital Encounter [facility] CLINCONV Shanice Frankel MD [address] [place] [address] Other screening mammogram Social History Tobacco Use Types Packs/Day Years Used Date Smoking Tobacco: Never Assessed Comments Unknown Sex and Gender Information Value Date Recorded Sex Assigned at Not on file Legal Sex Female 12:36 PM PAPERHANGER AND PAINTER Gender Identity Not on file Sexual Orientation [...] mammogram documented in this encounter Care Teams Office Agent Relationship Specialty Start Date End Date Lobo Bazan MD PCP - General 11/17/08 05/03/16 documented as of this encounter
--- OUTSIDE RECORDS SUMMARY | 2024-02-26 03:07 | XMS_ITS | Encounter Summary ---
Author Organization [facility] Healthcare Address [address] [place] [address] Care Team Providers Care Manager Club Name Role Phone Lobo Bazan MD Primary Care Provider +1- [phone] Encounter Details Date Type Department Care Team (Late st Contact Info) Description 08/11/2008 3:09 PM CDT - 08/14/2008 2:30 PM CDT Hospital Encounter [facility] Juan R Singh MD [address] [place] [address] Acute venous embolism and thrombosis of deep vessels of distal lower extremity (HCC); Other pulmonary embolism and infarction; Removal of organ causing abnormal patient reaction, or later complication; Constipation Social History Tobacco Use Types Packs/Day Years Used Date Smoking Tobacco: Never Assessed Comments Unknown Sex and Gender Information Value Date Recorded Sex Assigned at Not on file 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 Sex Female 12:36 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
--- OUTSIDE RECORDS SUMMARY | 2024-02-26 03:07 | XMS_ITS | Encounter Summary ---
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
--- OUTSIDE RECORDS SUMMARY | 2024-02-26 03:07 | XMS_ITS | Encounter Summary ---
Author Organization [facility] Healthcare Address [address] [place] [address] Care Team Providers Care Log Processor Operator Name Role Phone Lobo Bazan MD Primary Care Provider +1- [phone] Encounter Details Date Type Department Care Team (Late st Contact Info) Description 09/11/2008 2:57 PM CDT - 09/11/2008 11:59 PM CDT Hospital Encounter [facility] Clint Aranda MD 1 [facility] [address] [place] [address] Non-healing surgical wound Social History Tobacco Use Types Packs/Day Years Used Date Smoking Tobacco: Never Assessed Comments Unknown Sex and Gender Information Value Date Recorded Sex Assigned at Not on file Legal Sex Female 12:36 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
--- OUTSIDE RECORDS SUMMARY | 2024-02-26 03:07 | XMS_ITS | Encounter Summary ---
Author Organization [facility] Healthcare Address [address] [place] [address] Care Team Providers Care Railroad Emergency Services Manager Name Role Phone Lobo Bazan MD Primary Care Provider +1- [phone] Encounter Details Date Type Department Care Team (Late st Contact Info) Description 01/17/2014 11:49 AM PIPE LINE GAUGER - 01/17/2014 11:59 PM [facility] Hospital Encounter [facility] FLORESCONShanice Beth MD [address] [place] [address] Other screening mammogram; Inconclusive mammogram Social History Tobacco Use Types Packs/Day Years Used Date Smoking Tobacco: Never Assessed Alcohol Use Standard Drinks/Week Comments No 0 (1 standard drink = 0.6 oz pur e alcohol) Comments Unknown Sex and Gender Information Value Date Recorded Sex Assigned at Not on file Legal Sex Female 12:36 PM PIPE LINE GAUGER Gender Identity Not on file Sexual Orientation [...] Date/Time Associated Diagnosis Comments DIGITAL MAMMOGRAPHY Routine 01/17/2014 1 0:50 AM PIPE LINE GAUGER documented in this encounter Results * DIGITAL MAMMOGRAPHY (01/17/2014 10:50 AM PIPE LINE GAUGER) Anatomical Region Laterality Modality Breast Mammography 01/17/2014 10:5 0 AM PIPE LINE GAUGER Narrative 01/17/2014 8:58 PM PIPE LINE GAUGER Screening Mamm Bi ??Acc#: ??[id number] DATE OF EXAM: ??Jan 17 2014 CLINICAL HISTORY: Screening. Performed by: RESULT: Superior-inferior and lateral oblique views of each breast were obtained using the low dose technique. ??There is a mild to moderate amount of fibroglandular tissue. ??The appearance is quite similar to the prior study of 01/16/13. Digital technology was employed plus computer-aided detection software (R2) was utilized in interpretation of these images. ??This facility utilizes a reminder system to notify patients of yearly mammograms. IMPRESSION: MILD TO MODERATE FIBROGLANDULAR TISSUE WITH NO NEOPLASM SEEN. SUGGEST FOLLOWUP MAMMOGRAM IN ONE YEAR TO FURTHER ESTABLISH STABILITY. BI-RADS CATEGORY 2 - BENIGN FINDINGS Interpreting Physician: ??KOTA MUSA M.D. ??Read on: ??Jan 17 2014 10:50A Transcribed by: ??laureano ??On: Jan 17 2014 12:07P Approved Electronically by: ??KOTA MUSA M.D. ??on: ??Jan 17 2014 8:58P Ordering DR: SHANICE WILKINS Attending : SHANICE WILKINS Procedure Note Provider, MD Kendrick - 06/30/2016 Screening Mamm Bi Acc#: [id number] DATE OF EXAM: Jan 17 2014 CLINICAL HISTORY: Screening. Performed by: RESULT: Superior-inferior and lateral oblique views of each breast were obtainedusing the low dose technique. There is a mild to moderate amount offibroglandular tissue. The appearance is quite similar to the prior studyof 01/16/13. Digital technology was employed plus computer-aided detectionsoftware (R2) was utilized in interpretation of these images. Thisfacility utilizes a reminder system to notify patients of yearlymammograms. IMPRESSION: MILD TO MODERATE FIBROGLANDULAR TISSUE WITH NO NEOPLASM SEEN. SUGGESTFOLLOWUP MAMMOGRAM IN ONE YEAR TO FURTHER ESTABLISH STABILITY. BI-RADSCATEGORY 2 - BENIGN FINDINGS Interpreting Physician: KOTA MUSA M.D. Read on: Jan 17 201410:50A Transcribed by: laureano On: Jan 17 2014 12:07P Approved Electronically by: KOTA MUSA M.D. on: Jan 17 20148:58P Ordering DR: SHANICE WILKINS Attending : SHANICE WILKINS us Historical Provider MD [facility] MAMMO PROCEDURES Juany l Result documented in this encounter Visit Diagnoses Diagnosis Other screening mammogram Inconclusive mammogram documented in this encounter Care Teams Railroad Emergency Services Manager Relationship Specialty Start Date End Date Lobo Bazan MD PCP - General 11/17/08 05/03/16 documented as of this encounter
--- OUTSIDE RECORDS SUMMARY | 2024-02-26 03:07 | XMS_ITS | Encounter Summary ---
Author Organization [facility] Healthcare Address [address] [place] [address] Care Team Providers Care Medical Supervisor Name Role Phone Lobo Bazan MD Primary Care Provider +1- [phone] Reason for Visit * Reason Comments Shoulder Pain Encounter Details Date Type Department Care Team (Late st Contact Info) Description 04/01/2018 2:34 PM DELI MANAGER - 04/01/2018 4:01 PM DELI MANAGER [facility] Emergency Department [address] [place] [address] Clint Treviño MD [address] [place] [address] Radicular pain in left arm (Primary Dx) Discharge Disposition: Discharge to home or self care Social History Tobacco Use Types Packs/Day Years Used Date Smoking Tobacco: Never Assessed Alcohol Use Standard Drinks/Week Comments No 0 (1 standard drink = 0.6 oz pur e alcohol) Comments No Sex and Gender Information Value Date Recorded Sex Assigned at Not on file Legal Sex Female 12:36 PM DELI MANAGER Gender Identity Not on file Sexual Orientation Not on file documented as of this encounter Last Filed Vital Signs Vital Sign Reading Time Taken Comments Blood Pressure 136/91 04/01/2018 2:54 PM DELI MANAGER Pulse 67 04/01/2018 2:54 PM DELI MANAGER Temperature 36.8 ??C (98.3 ??F) 04/01/2018 2:54 PM CS T Respiratory Rate 18 04/01/2018 2:54 PM DELI MANAGER Oxygen Saturation 100% 04/01/2018 2:54 PM DELI MANAGER Inhaled Oxygen Concentration - - Weight 99.8 kg (220 lb) 04/01/2018 2:54 PM DELI MANAGER Height 170.2 cm (5' 7 ) 04/01/2018 2:54 PM DELI MANAGER Body Mass Index 34.46 04/01/2018 2:54 PM DELI MANAGER documented in this encounter Discharge Instructions * Discharge Instructions* Clint Treviño MD - 04/01/2018 3:33 PM DELI MANAGER Take medications as prescribed , Follow with your doctor consider Physical therapy MANAGER * Attachments The following attachments cannot be sent through Care Everywhere. * Cervical Radiculopathy (AfterCare(R) Instructions(ER/ED)) (Niuean) documented in this encounter Medications at Time [...] as needed for anaphylaxis 2 0 10/01/2009 gabapentin (NEURONTIN) 100 mg capsule Take 1 capsule (100 mg total) by mouth 3 (three) times a day. 30 capsule 04/01/2018 ibuprofen (MOTRIN) 400 mg tablet 400 mg. 0 0 07/14/2008 lansoprazole (PREVACID) 30 mg capsule 30 mg. 0 0 07/14/2008 multivitamin tablet tablet Take as directed 0 0 07/14/2008 SUMAtriptan (IMITREX) 100 mg tablet TAKE ONE BY MOUTH ONE TIME PER DAY NEEDED 6 0 07/07/2008 SUMAtriptan (IMITREX) 5 mg/actuation nasal spray 5 mg. 0 0 07/14/2008 methylPREDNISolo ne (MEDROL DOSEPACK) 4 mg Dosepack Take as directed. 21 tablet 04/01/2018 9 documented as of this encounter Ordered Prescriptions Prescription Sig Dispense Quantity Refills Last Filled Start Date End Date gabapentin (NEURONTIN) 100 mg capsule Take 1 capsule (100 mg total) by mouth 3 (three) times a day. 30 capsule 04/01/2018 methylPREDNISolone (MEDROL DOSEPACK) 4 mg Dosepack Take as directed. 21 tablet 04/01/2018 9 documented in this encounter Discharge Disposition Disposition Code Departure Means Destination Discharge to home or self care documented in this encounter ED Notes * Kingston Webber RN - 04/01/2018 2:56 PM CST Complaining of left shoulder and arm pain, thinks she might have slept on it wrong. Good pulses andsensation. Denies any trauma MANAGER * Clint Treviño MD - 04/01/2018 2:46 PM CST HPI Chief Complaint Patient presents with ??? Shoulder Pain 2:36 PM 04/01/2018 - 47 y/o female presents to the ED c/o constant left arm pain that started yesterday. Pt states her pain is in her left shoulder and radiates down her arm and to her shoulder blade. Pt states the pain is exacerbated with movement. Pt took Tylenol and Ibuprofen with no relief. Pt denies chest pain, fever, chills, or SOB. Patient History Patient Active Problem List Diagnosis Date Noted ??? Migraine without aura and responsive to treatment 09/10/2013 Class: Chronic ??? Pulmonary embolism (CMS/HCC) 07/13/2013 Class: Chronic ??? Adiposity 07/13/2013 Class: Chronic ??? Open wound of abdominal wall 08/31/2012 Class: Chronic ??? Small bowel obstruction (CMS/HCC) 05/24/2012 Class: Chronic ??? Recurrent ventral incisional hernia with obstruction 05/24/2012 Class: Chronic Past Medical History: Diagnosis Date ??? HX OTHER MEDICAL ??? HX OTHER MEDICAL OM ??? HX OTHER MEDICAL knee pain ??? HX OTHER MEDICAL teratoma ??? HX OTHER MEDICAL hernia ??? Pulmonary embolism (CMS/HCC) Past Surgical History: Procedure Laterality Date ??? SECTION 2001 section ??? SECTION 2003 section ??? KNEE ARTHROSCOPY 1985 Arthroscopy knee ??? OOPHORECTOMY Left left ovary removed 2008 ??? OTHER SURGICAL HISTORY : x 2 ??? OTHER SURGICAL HISTORY OM: tubes ??? OTHER SURGICAL HISTORY knee pain: surgery ??? OTHER SURGICAL HISTORY tubes in ears yrs. ago ??? OTHER SURGICAL HISTORY 2008 teratoma: resection ??? OTHER SURGICAL HISTORY hernia: herniorrhaphy ??? OTHER SURGICAL HISTORY 2012 repair recurrrent incar. inci. VH & sbo ??? OTHER SURGICAL HISTORY 2012 open abdominal wound debridement / wound vac place Family History Problem Relation Age of Onset ??? Coronary artery disease Mother 55 Coronary artery disease, premature; ??? Hypertension Mother Hypertension; ??? Diabetes type II Sister Diabetes -Type II; ??? Breast cancer Sister Social History Substance Use Topics ??? Smoking status: Not on file ??? Smokeless tobacco: Not on file ??? Alcohol use No Social History Social History Narrative ??? No narrative on file Review of Systems Review of Systems Constitutional: Negative for chills and fever. HENT: Negative for ear pain and sore throat. Eyes: Negative for pain and visual disturbance. Respiratory: Negative for cough and shortness of breath. Cardiovascular: Negative for chest pain and palpitations. Gastrointestinal: Negative for abdominal pain and vomiting. Genitourinary: Negative for dysuria and hematuria. Musculoskeletal: Positive for arthralgias (shoulder), back pain (shoulder blade) and myalgias (leftarm). Skin: Negative for color change and rash. Neurological: Negative for seizures and syncope. All other systems reviewed and are negative. Physical Exam ED Triage Vitals [04/01/18 1454] Temp Pulse Resp BP SpO2 36.8 ??C (98.3 ??F) 67 18 136/91 100 % Temp src Heart Rate Source Patient Position BP Location FiO2 (%) Temporal -- -- -- -- Physical Exam Constitutional: She appears well-developed and well-nourished. HENT: Head: Normocephalic and atraumatic. Mouth/Throat: Oropharynx is clear and moist. Eyes: Pupils are equal, round, and reactive to light. EOM are normal. Neck: Normal range of motion. Cardiovascular: Normal rate and regular rhythm. Pulmonary/Chest: Effort normal and breath sounds normal. Abdominal: Soft. Musculoskeletal: Normal range of motion. Mild pain in the left shoulder with movement Neurological: She is alert. Skin: Skin is warm. Nursing note and vitals reviewed. MDM MDM Number of Diagnoses or Management Options Amount and/or Complexity of Data Reviewed Tests in the radiology section of CPT??: ordered and reviewed Vitals: 04/01/18 1454 BP: 136/91 Pulse: 67 Resp: 18 Temp: 36.8 ??C (98.3 ??F) SpO2: 100% Labs Reviewed - No data to display XR Spine Cervical Complete 4 or 5 Views Final Result DEGENERATIVE CHANGES, WITH DEGENERATIVE DISC DISEASE AT C4-C5 AND C5-C6, AND MINIMAL SPURRING. Electronically signed by: Han Navarrete M.D ED Course as of Apr 01 1531 Time: 04/01 1528 Comment: Rechecked pt and informed of cervical spine XR results. Advised to take steroids as prescribed and Tylenol/Ibuprofen PRN. Follow up with PCP for physical therapy. By: Cj Hager Radicular pain in left arm This note is prepared by Cj Hager acting as a scribe for Dr. Clint Treviño MD. Signed by Ildefonso Baca . 2:47 PM 04/01/2018 I, Dr. Clint Treviño MD, have personally performed the services described in the documentation , reviewed the documentation, as recorded by the scribe in my presence, and it accurately and completely records my words and actions. Clint Treviño MD 04/01/181531 MANAGER documented in this encounter Plan of Treatment Not on file documented as of this encounter Procedures Procedure Name Priority Date/Time Associated Diagnosis Comments XR SPINE CERVICAL COMPLETE 4 OR 5 VW ED 04/01/2018 3:16 PM DELI MANAGER documented in this encounter Results * XR Spine Cervical Complete 4 or 5 Views (04/01/2018 3:16 PM DELI MANAGER) Anatomical Region Laterality Modality Spine N/A Computed Radiogr aphy 04/01/2018 3:23 PM DELI MANAGER Impressions 04/01/2018 3:24 PM DELI MANAGER DEGENERATIVE CHANGES, WITH DEGENERATIVE DISC DISEASE AT C4-C5 AND C5-C6, AND MINIMAL SPURRING. Electronically signed by: Han Navarrete M.D Narrative 04/01/2018 3:24 PM DELI MANAGER XR SPINE CERVICAL COMPLETE 4 OR 5 VW HISTORY: arm pain. TECHNIQUE: 6 views are obtained. COMPARISON: None available. FINDINGS: Vertebral body heights are maintained. ??No compression fracture for is identified. ??Loss of height of disc at C4-C5 and C5-C6 consistent with degenerative disc disease. ??Minimal spurring. Procedure Note Han Navarrete MD - 04/01/2018 XR SPINE CERVICAL COMPLETE 4 OR 5 VW HISTORY: arm pain. TECHNIQUE: 6 views are obtained. COMPARISON: None available. FINDINGS: Vertebral body heights are maintained. No compression fracture for is identified. Loss of height of disc at C4-C5 and C5-C6 consistent with degenerative disc disease. Minimal spurring. IMPRESSION: DEGENERATIVE CHANGES, WITH DEGENERATIVE DISC DISEASE AT C4-C5 AND C5-C6, AND MINIMAL SPURRING. Electronically signed by: Han Navarrete M.D Clint Treviño MD IMG XR PROCEDURES Final Result documented in this encounter Visit Diagnoses Diagnosis Radicular pain in left arm- Primary Unspecified neuralgia, neuritis, and radiculitis documented in this encounter Care Teams Medical Supervisor Relationship Specialty Start Date End Date Lobo Bazan MD PCP - General 05/27/16 01/11/21 documented as of this encounter
--- OUTSIDE RECORDS SUMMARY | 2024-02-26 03:07 | XMS_ITS | Encounter Summary ---
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
--- OUTSIDE RECORDS SUMMARY | 2024-02-26 03:07 | XMS_ITS | Encounter Summary ---
Author Organization [facility] Healthcare Address [address] [place] [address] Care Team Providers Care Intermediate Teacher Name Role Phone Lobo Bazan MD Primary Care Provider +1- [phone] Encounter Details Date Type Department Care Team (Late st Contact Info) Description 08/21/2012 3:33 PM CDT - 08/21/2012 11:59 PM CDT Hospital Encounter [facility] Emely, Michel Dudley MD [address] [place] [address] [address] Infected postoperative seroma; Other specified surgical operation and procedure causing abnormal patient reaction or later complication Social History Tobacco Use Types Packs/Day Years Used Date Smoking Tobacco: Never Assessed Comments Unknown Sex and Gender Information Value Date Recorded Sex Assigned at Not on file Legal Sex Female 12:36 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 [facility] Patient Name: MARI ORDONEZ ? [facility] Healthcare Age: 41 YRS ?: 1970 ?Sex:F ?[address] )[id number] ?? Adm Dt: 08/21/2012 ?[place] ??[address] Created: 08/26/2012 ??0225 ?? Pt. Type: R ? Discharge Dt: 08/21/2012 ? Pathologists: Ping Gonzalez MD Admit Dr. Page Dr: MICHEL MAY MD ? MICRO - WOUND WOUND CULTURE ? Collected: 08/21/12 1340 ? Received: 08/21/12 1728 Source: WOUND ? Started: 08/21/12 1852 ?ABDOMEN ? PRELIMINARY REPORT ?08/22/12 0753 ? NO GROWTH ? FINAL REPORT ?08/25/12 0655 ? NO GROWTH AT 4 DAYS ?? END OF CHART ? Page: ?? 1 us Historical Provider LAB MICROBIOLOGY - GENERA L ORDERABLES Final Result HISTORICAL RESULTS * Serum basic metabolic panel (08/21/2012 3:47 PM CDT) Creatinine 0.88 0.60 - 1.30 mg/dl HISTORICAL RESULTS Comment: eGFR: >70 ml/min/1.73sq.m if non -Bulgarian. eGFR: >70 ml/min/1.73sq.m if -Bulgarian. AVE GFR for 40-49 yr. age group: ??99 ml/min/1.73sq.m Calculated using MDRD Equation BUN 9.0 6.0 - 23.0 mg/dl HISTORICAL RESULTS BUN/creat ratio 10 10 - 20 HIST ORICAL RESULTS Sodium 140 134 - 143 mmol/L HISTORICAL RESULTS A. gap 11 7 - 14 mmol/L HISTORICAL RESULTS Potassium, sr 4.0 3.4 - 5.0 mmol/L HISTORICAL RESULTS Osmo, calc 278 275 - 295 mOsm/kg HISTORICAL RESULTS Chloride 105 99 - 108 mmol/L HISTORICAL RESULTS Calcium 9.4 8.6 - 9.8 mg/dl HISTORICAL RESULTS CO2 28 23 - 32 mmol/L HISTORICAL RESULTS Glucose, fasting 105 70 - 110 mg/dl HISTORICAL RESULTS Serum 08/21/2012 3:47 PM CDT Michel May MD LAB BLOOD ORDERABLE S Final Result HISTORICAL RESULTS * Microbiology Summary (08/21/2012 12:00 AM CDT) 08/21/2012 Narrative HISTORICAL RESULTS - 08/26/2012 2:27 AM CDT ? [facility] ?CL[facility] ? MICROBIOLOGY REPORT PATIENT NAME: ??MARI ORDONEZ ? MED RECORD#: ??[id number] BIRTHDATE: ??1970 ?? AGE: ??41 YRS SEX: F ?PATIENT#: ? [id number] ADMITTING DR: ??MICHEL MAY MD ? ATTENDING DR: ??MICHEL MAY MD ? ACCESSION#: ?? [id number] CREATED: ??08/26/12 ?? 0224 ? ADMIT DATE: ?? 08/21/12 ? MICRO - WOUND WOUND CULTURE ? Collected: 08/21/12 1340 ? Received: 08/21/12 1728 Source: WOUND ? Started: 08/21/12 1852 ?ABDOMEN ?08/22/12 0753 ? NO GROWTH ?08/25/12 0655 ? NO GROWTH AT 4 DAYS ?? END OF CHART us Historical Provider MD LAB MICROBIOLOGY - GENERA L ORDERABLES Final Result HISTORICAL RESULTS * Discharge Laboratory Cumulative Report (08/21/2012 12:00 AM CDT) 08/21/2012 Narrative HISTORICAL RESULTS - 08/23/2012 12:24 AM CDT Patient No: [id number] ? [facility] Patient Name: MARI ORDONEZ ? [facility] Age: 41 YRS ?: 1970 ?Sex:F ?[address] )[id number] ?? Adm Dt: 08/21/2012 ?[place], [place] ??[address] Created: 08/23/2012 ??0024 ?? Pt. Type: R ? Discharge Dt: 08/21/2012 ? Pathologists: Ping Gonzalez MD Admit Dr. Camilo Foreman: MICHEL MAY MD ? GENERAL CHEMISTRY ?Collection Date: ?08/21/12 ?Collection Time: ?1547 ? Ref Range: ?? Units: [134-143] ?? MMOL/L ? SODIUM ? 140 [3.4-5.0] ?? MMOL/L ? POTASSIUM ?4.0 [99.0-108.0] MMOL/L ? CHLORIDE ? 105.0 [23.0-32.0] ??MMOL/L ? TOTAL CO2 ? 27.6 ?? [7-14] ?MMOL/L ? ANION GAP ? 11 ??[70-110] ?? MG/DL ?GLUCOSE FASTING ?105 [275-295] ?? MOSM/K ? CALCULATED OSMO ?278 [8.6-9.8] ?? MG/DL ?CALCIUM ?9.4 [6.0-23.0] ??MG/DL ?BUN ?9.0 ??[10-20] ? B/C RATIO ? 10 [0.60-1.30] ??MG/DL ?CREATININE ?0.88 f ?08/21/12 1547 eGFR: >70 ml/min/1.73sq.m if non -Bulgarian. eGFR: >70 ml/min/1.73sq.m if -Bulgarian. AVE GFR for 40-49 yr. age group: ??99 ml/min/1.73sq.m Calculated using MDRD Equation FOOTNOTE ADDED ON ?? 08/21/12 ?? AT 1609 BY 999 ? MICRO - WOUND WOUND CULTURE ? Collected: 08/21/12 1340 ? Received: 08/21/12 1728 Source: WOUND ? Started: 08/21/12 1852 ?ABDOMEN ? PRELIMINARY REPORT ?08/22/12 0753 ? NO GROWTH Footnotes and Symbols: f = Footnote ?? END OF CHART ? Page: ?? 1 us Historical Provider MD LAB BLOOD ORDERABLES Juany l Result HISTORICAL RESULTS documented in this encounter Visit Diagnoses Diagnosis Infected postoperative seroma Other specified surgical operation and procedure causing abnormal patient reaction or later complication documented in this encounter Care Teams Intermediate Teacher Relationship Specialty Start Date End Date Lobo Bazan MD PCP - General 11/17/08 05/03/16 documented as of this encounter
--- OUTSIDE RECORDS SUMMARY | 2024-02-26 03:07 | XMS_ITS | Encounter Summary ---
Author Organization [facility] Healthcare Address [address] [place] [address] Care Team Providers Care Platform Worker Name Role Phone Lobo Bazan MD Primary Care Provider [phone]- [phone] Encounter Details Date Type Department Care Team (Late st Contact Info) Description 01/01/2009 12:01 AM BUS PERSON - 01/01/2009 11:59 PM BUS PERSON Hospital Encounter [facility] Garcia Other pulmonary embolism and infarction Social History Tobacco Use Types Packs/Day Years Used Date Smoking Tobacco: Never Assessed Comments Unknown Sex and Gender Information Value Date Recorded Sex Assigned at Not on file Legal Sex Female 12:36 PM BUS PERSON Gender Identity Not on file Sexual Orientation [...] of this encounter Visit Diagnoses Diagnosis Other pulmonary embolism and infarction documented in this encounter Care Teams Platform Worker Relationship Specialty Start Date End Date Lobo Bazan MD PCP - General 11/17/08 05/03/16 documented as of this encounter
--- OUTSIDE RECORDS SUMMARY | 2024-02-26 03:08 | XMS_ITS | Encounter Summary ---
Author Organization [facility] Healthcare Address [address] [place] [address] Care Team Providers Care Validation Technician Name Role Phone Lobo Bazan MD Primary Care Provider [phone]- [phone] Encounter Details Date Type Department Care Team (Late st Contact Info) Description 07/25/2008 4:32 AM CDT - 08/02/2008 2:15 PM CDT Hospital Encounter [facility]INCON[facility] Kaur Incisional hernia with obstruction; Digestive system complication; Urinary tract infection; Paralytic ileus (CMS/HCC) (HCC); Dehydration; Esophageal reflux; Other specified surgical operation and procedure causing abnormal patient reaction or later complication; Place of occurrence, residential institution Social History Tobacco Use Types Packs/Day Years Used Date Smoking Tobacco: Never Assessed Comments Unknown Sex and Gender Information Value Date Recorded Sex Assigned at Not on file 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 Sex Female 12: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 Gender Identity Not on file Sexual Orientation [...] Visit Diagnoses Diagnosis Incisional hernia with obstruction Digestive system complication Urinary tract infection Urinary tract infection, site not specified Paralytic ileus (CMS/HCC) (HCC) Paralytic ileus Dehydration Esophageal reflux Other specified surgical operation and procedure causing abnormal patient reaction or later complication Place of occurrence, residential institution documented in this encounter Care Teams Validation Technician Relationship Specialty Start Date End Date Lobo Bazan MD PCP - General 07/04/07 08/06/08 documented as of this encounter
--- OUTSIDE RECORDS SUMMARY | 2024-02-26 03:08 | XMS_ITS | Encounter Summary ---
Author Organization [facility] Healthcare Address [address] [place] [id number] Care Team Providers Care Char Filter Tank Tender Name Role Phone Lobo Bazan MD Primary Care Provider [phone]- [phone] Encounter Details Date Type Department Care Team (Late st Contact Info) Description 07/01/2008 12:00 PM CDT - 07/01/2008 5:25 PM CDT Hospital Encounter [facility] Garcia Abdominal pain, epigastric Social History Tobacco Use Types Packs/Day Years Used Date Smoking Tobacco: Never Assessed Comments Unknown Sex and Gender Information Value Date Recorded Sex Assigned at Not on file 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
--- OUTSIDE RECORDS SUMMARY | 2024-02-26 03:08 | XMS_ITS | Encounter Summary ---
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
--- OUTSIDE RECORDS SUMMARY | 2024-02-26 03:08 | XMS_ITS | Encounter Summary ---
Author Organization [facility] Healthcare Address [address] [place] [address] Care Team Providers Care Tree Warden Name Role Phone Lobo Bazan MD Primary Care Provider [phone]- [phone] Encounter Details Date Type Department Care Team (Latest Contact Info) Description 07/22/2008 9:15 AM CDT - 07/22/2008 4:36 PM CDT Hospital Encounter [facility] Keenan Zacarias Calculus of gallbladder with acute cholecystitis and obstruction; Esophageal reflux; Obesity Social History Tobacco Use Types Packs/Day Years Used Date Smoking Tobacco: Never Assessed Comments Unknown Sex and Gender Information Value Date Recorded Sex Assigned at Not on file 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
--- OUTSIDE RECORDS SUMMARY | 2024-02-26 03:08 | XMS_ITS | Encounter Summary ---
Author Organization [facility] Healthcare Address [address] [place] [address] Care Team Providers Care Environmental Scientist Name Role Phone Lobo Bazan MD Primary Care Provider [phone]- [phone] Encounter Details Date Type Department Care Team (Late st Contact Info) Description 07/04/2008 12:01 AM CDT - 07/04/2008 11:59 PM CDT Hospital Encounter [facility] Clint Aranda MD [address] [facility] [address] [place] [address] Calculus of gallbladder; Abdominal pain, right upper quadrant Social History Tobacco Use Types Packs/Day Years Used Date Smoking Tobacco: Never Assessed Comments Unknown Sex and Gender Information Value Date Recorded Sex Assigned at Not on file 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
== END 2024-02-19 10:58 | disposition home or self-care (01) ==
PROVIDERS: PCP Family Medicine; Visit Provider Obstetrics & Gynecology Gynecology
PROC: 0U5B8ZZ Destruction of Endometrium, Via Natural or Artificial Opening Endoscopic (ICD-10-PCS; CPT 58563; principal; 2024-02-19 09:00)
DX: N95.0 Postmenopausal bleeding (principal); N84.0 Polyp of corpus uteri; E66.9 Obesity, unspecified; Z68.39 Body mass index [BMI] 39.0-39.9, adult
CPT/HCPCS: 58558; 88305; A9270; J1100; J1885; J2003; J2250; J2405; J2704; J3010; J7120